=== PATIENT | female | born 1955 | race African-American/Black ===

== ENCOUNTER 2017-11-08 11:02 | Emergency (ER) | payer OTHER ==
[2017-11-08 11:17] VITALS: BMI 28.0
[2017-11-08] MEDS ORDERED: SODIUM CHLORIDE 500 ML IV ONE (12:07)
--- NOTE | 2017-11-08 12:08 | PDOC ---
History of Present Illness - General History Source: Patient Exam Limitations: No Limitations - History of Present Illness Initial Comments: 11/08/17 13:06 The patient is a 61 year old female, with a significant past medical history of HTN, DM, CAD (on daily 81 mg Aspirin), Fibromyalgia, Glaucoma, GERD who presents to the emergency department with dark stools and abdominal pain for the past month. Patient reports intermittent constipation for the past month that eventually resolves on its own. Once resolved, patient has 4-5 bowel movements per day which are black in color. Patient reports associated nausea, fatigue and lower abdominal cramping. Patient occasionally takes Motrin for the pain however denies any relief. Patients pain and stool color have not resolved and presents to the ED for further evaluation. Patient denies chest pain, headache or dizziness. Patient denies fever, chills, vomit, diarrhea or constipation. Patient denies dysuria, frequency, urgency or hematuria. Patient denies sick contacts or recent travel. Allergies: NKA Past surgical history:biopsy of a nodule in her left upper lobe (03/2016) s/p wedge resection (06/2016) Social history: Former smoker (35 years ago) PCP: Dr. Abraham <Ne Riggs - Last Filed: 11/08/17 14:21> <August Rivera - Last Filed: 11/08/17 14:44> - General Chief Complaint: Rectal Bleed Stated Complaint: Black stools, back pain Time Seen by Provider: 11/08/17 12:06 Past History <Ne Riggs - Last Filed: 11/08/17 14:21> - Past Medical History Anemia: Yes Cancer: Yes (Lung 2016) Cardiac Disorders: Yes (CAD/Atypical chest pain) COPD: No (bronchitis) Diabetes: Yes HTN: Yes Hypercholesterolemia: Yes - Surgical History Lung Surgery: Yes (LUNG BIOPSY 03/2016) - Suicide/Smoking/Psychosocial Hx Smoking Status: Yes Smoking History: Never smoked Have you smoked in the past 12 months: Yes Number of Cigarettes Smoked Daily: 3 If you are a former smoker, when did you quit?: 2016 Information on smoking cessation initiated: No 'Breaking Loose' booklet given: 07/06/15 Hx Alcohol Use: No Drug/Substance Use Hx: No Substance Use Type: None Hx Substance Use Treatment: No <August Rivera - Last Filed: 11/08/17 14:44> - Past Medical History Allergies/Adverse Reactions: Allergies Allergy/AdvReac Type Severity Reaction Status Date / Time oyster extract Allergy Verified 11/08/17 11:17 OYSTER BASE Allergy Severe Hives Uncoded 11/08/17 11:17 Home Medications: Ambulatory Orders Ezetimibe [Zetia] 10 mg PO DAILY 10/22/16 Ramipril 2.5 mg PO BID 10/22/16 Aspirin [ASA -] 81 mg PO DAILY 11/08/17 Canagliflozin [Invokana] 300 mg PO DAILY 11/08/17 Lubiprostone [Amitiza] 8 mcg PO DAILY 11/08/17 Ranitidine HCl [Zantac] 150 mg PO DAILY 11/08/17 Rosuvastatin Calcium [Crestor] 30 mg PO HS 11/08/17 Review of Systems - Review of Systems Constitutional: Yes: Weakness. No: Chills, Fever Respiratory: No: Shortness of Breath Cardiac (ROS): Yes: Lightheadedness. No: Chest Pain ABD/GI: Yes: See HPI, Blood Streaked Bowels. No: Nausea, Vomiting : No: Dysuria Neurological: No: Headache All Other Systems: Reviewed and Negative <August Rivera - Last Filed: 11/08/17 14:44> *Physical Exam - Vital Signs Last Vital Signs Temp Pulse Resp BP Pulse Ox 98.2 F 66 18 153/78 99 11/08/17 11:14 11/08/17 11:14 11/08/17 11:14 11/08/17 11:14 11/08/17 11:14 - Physical Exam Comments: 11/08/17 13:06 GENERAL: The patient is awake, alert, and fully oriented, in no acute distress. HEAD: Normal with no signs of trauma. EYES: Pupils equal, round and reactive to light, extraocular movements intact, sclera anicteric, conjunctiva clear with no pallor. ENT: Ears normal, nares patent, oropharynx clear without exudates. Moist mucous membranes. NECK: Normal range of motion, supple without lymphadenopathy, JVD, or masses. LUNGS: Breath sounds equal, clear to auscultation bilaterally. No wheeze/ crackles. HEART: Regular rate and rhythm, normal S1 and S2 without murmur or rub. ABDOMEN: + Mid RLQ discomfort to tenderness. Soft//nondistended. BS wnl. No guarding or rebound. No palpable masses. No hepatosplenomegaly. EXTREMITIES: Normal range of motion, no edema. No clubbing or cyanosis. No cords, erythema, or tenderness. NEUROLOGICAL: Cranial nerves II through XII grossly intact. Normal speech, normal gait. PSYCH: Normal mood, normal affect. SKIN: Warm, Dry, normal turgor, no rashes or lesions noted. RECTAL: No stool in the vault. <Ne Riggs - Last Filed: 11/08/17 14:21> - Vital Signs Last Vital Signs Temp Pulse Resp BP Pulse Ox 98.2 F 66 18 153/78 99 11/08/17 11:14 11/08/17 11:14 11/08/17 11:14 11/08/17 11:14 11/08/17 11:14 <August Rivera - Last Filed: 11/08/17 14:44> Heart Score/ECG Review #1 ECG reviewed & interpreted by me at: 13:01 General ECG Interpretation: Sinus Rhythm, Normal Rate (54), Normal Intervals ( qtc 403), No acute ischemic changes <August Rivera - Last Filed: 11/08/17 14:44> ED Treatment Course - LABORATORY CBC & Chemistry Diagram: 11/08/17 12:10 11/08/17 12:10 - ADDITIONAL ORDERS Additional order review: Laboratory Results 11/08/17 11/08/17 11/08/17 12:41 12:10 12:10 PT with INR 10.70 INR 0.95 PTT (Actin FS) 30.9 Sodium 134 L Potassium 4.2 Chloride 99 Carbon Dioxide 30 Anion Gap 5 L BUN 13 Creatinine 0.7 Creat Clearance w eGFR > 60 Random Glucose 284 H Calcium 9.8 Total Bilirubin 0.6 D AST 4 L D ALT 21 Alkaline Phosphatase 96 D Total Protein 7.3 Albumin 4.0 Lipase 140 Urine Color Urine Appearance Urine pH Ur Specific [place] Urine Protein Urine Glucose (UA) Urine Ketones Urine Blood Urine Nitrite Urine Bilirubin Urine Urobilinogen Stool Occult Blood Negative 11/08/17 12:10 PT with INR INR PTT (Actin FS) Sodium Potassium Chloride Carbon Dioxide Anion Gap BUN Creatinine Creat Clearance w eGFR Random Glucose Calcium Total Bilirubin AST ALT Alkaline Phosphatase Total Protein Albumin Lipase Urine Color Ltyellow Urine Appearance Clear Urine pH 5.0 Ur Specific [place] 1.032 Urine Protein Negative Urine Glucose (UA) 3+ H Urine Ketones 1+ H Urine Blood Negative Urine Nitrite Negative Urine Bilirubin Negative Urine Urobilinogen Negative Stool Occult Blood 11/08/17 12:10 RBC 5.51 H MCV 85.3 MCHC 32.8 RDW 13.7 MPV 8.1 Neutrophils % 56.1 Lymphocytes % 36.5 Monocytes % 5.4 Eosinophils % 1.1 Basophils % 0.9 - Medications Given in the ED: ED Medications Discontinued Medications Generic Name Dose Route Start Last Admin Trade Name Freq PRN Reason Stop Dose Admin Sodium Chloride 500 mls @ 500 mls/hr 11/08/17 12:07 11/08/17 12:55 Normal Saline - IV 11/08/17 13:06 500 mls/hr ONCE ONE Administration <Ne Riggs - Last Filed: 11/08/17 14:21> - LABORATORY CBC & Chemistry Diagram: 11/08/17 12:10 11/08/17 12:10 <August Rivera - Last Filed: 11/08/17 14:44> Medical Decision Making - Medical Decision Making 11/08/17 14:[address] Lyon via office phone Discussed patient's case. <Ne Riggs - Last Filed: 11/08/17 14:21> - Medical Decision Making 11/08/17 12:48 A portion of this note was documented by scribe services under my direction. I have reviewed the details of the note, within reason, and agree with the documentation with the following case summary and management plan written by me. 61-year-old female with history of hypertension, diabetes, fibromyalgia, PUD presents with 2 months of daily dark stool with abdominal cramping. No nausea or vomiting, has had increased appetite and tolerating normal by mouth since quitting smoking one year ago. No fevers or chills, complaining of increasing malaise and fatigue over the last 2 weeks to 1 month. Last endoscopy/colonoscopy was 5 years ago and reportedly within normal limits, question whether she has diverticulosis. Has been on PPI in the past but has been noncompliant for several years. Vital signs stable Ambulate comfortably No conjunctival pallor Abdomen is benign, soft/nondistended/nontender with only mild discomfort in the right lower quadrant. No stool in vault, guaiac sent. 61-year-old female with history of PUD presents with 1 month of persistent dark stool and intermittent abdominal cramping. Worsening lightheadedness could be suggestive of anemia, rule out other infectious or metabolic process. Labs, urinalysis EKG, chest x-ray IV fluids Reassess 11/08/17 13:41 labs wnl, Hgb 15.4, very reassuring in setting of 1 month of sxs. BUN also normal. stool guaiac negative. EKG normal, CT chest from earlier today without acute pathology. 11/08/17 14:[address] Loyn, the patient's GI specialist. Agrees with d/c plan, can see pt in his office tomorrow morning. Pt ambulating freely in ED, conversing with staff. Agrees with d/c plan, will f/ u with Dr. Lyon tomorrow, understands return criteria. <August Rivera - Last Filed: 11/08/17 14:44> *DC/Admit/Observation/Transfer - Attestations Scribe Attestion: 11/08/17 13:07 Documentation prepared by Ne Riggs, acting as medical equipment repairer for August Rivera MD <Ne Riggs - Last Filed: 11/08/17 14:21> <August Rivera - Last Filed: 11/08/17 14:44> Diagnosis at time of Disposition: Dark stools - Discharge Dispostion Disposition: HOME Condition at time of disposition: Stable - Referrals Referrals: Shahida Abraham MD [Primary Care Provider] - Checo Lyon MD [Staff Physician] - - Patient Instructions Printed Discharge Instructions: DI for Fatigue Additional Instructions: Activity as tolerated. Stay hydrated. Blood tests today showed no evidence of anemia or blood in your stool. A urine test showed no evidence of infection. Stay well hydrated, continue normal diet. Continue your medications as previously prescribed by your physician. Restart your Nexium as previously prescribed. You should follow up with Dr. Abraham and Dr. Lyon as soon as possible regarding today's emergency department visit. Dr. LYON IS EXPECTING TO SEE YOU IN HIS OFFICE TOMORROW. Return to the emergency department for any new or concerning symptoms, particularly persistent or worsening abdominal pain, grossly bloody stool, bloody vomit, severe weakness or fevers. - Post Discharge Activity
[2017-11-08 12:17] LABS: BASO % 0.9 % (0-2.0); EOS % 1.1 % (0-4.5); MCHC 32.8 g/dl (32.0-36.0); MEAN CELL VOLUME 85.3 fl (80-96); MEAN PLT VOLUME 8.1 fl (7.5-11.1); NEUT % 56.1 % (42.8-82.8); PLATELET COUNT 203 K/MM3 (134-434); RDW 13.7 % (11.6-15.6); WHITE BLOOD COUNT 7.7 K/mm3 (4.0-10.0)
[2017-11-08 12:27] LABS: URINE APPEARANCE CLEAR; URINE BILIRUBIN NEGATIVE (NEGATIVE); URINE BLOOD NEGATIVE (NEGATIVE); URINE COLOR LTYELLOW; URINE GLUCOSE (UA) 3+ (NEGATIVE); URINE KETONE 1+ (NEGATIVE); URINE LEUK ESTERASE NEGATIVE (NEGATIVE); URINE NITRITE NEGATIVE (NEGATIVE); URINE PROTEIN NEGATIVE (NEGATIVE); URINE UROBILINOGEN NEGATIVE mg/dL (0.2-1.0)
[2017-11-08 12:43] LABS: ANION GAP 5 (8-16); CALCIUM 9.8 mg/dL (8.5-10.1); CO2 30 mmol/L (21-32); CREATININE 0.7 mg/dL (0.55-1.02); GLUCOSE,RANDOM 284 mg/dL (74-106); SGPT/ALT 21 U/L (12-78); TOT PROT 7.3 g/dl (6.4-8.2)
[2017-11-08 12:44] LABS: INR 0.95 (0.82-1.09); PROTHROMBIN TIME (PATIENT) 10.7 SEC (9.98-11.88); SGOT/AST 4 U/L (15-37)
[2017-11-08 12:46] LABS: ACTIVATED PTT 30.9 SECONDS (26.9-34.4)
[2017-11-08 12:48] LABS: ALK PHOS 96 U/L (45-117); BILIRUBIN,TOTAL 0.6 mg/dL (0.2-1.0)
[2017-11-08 14:35] VITALS: BP 142/76; PULSE 68; TEMP 98
[2017-11-08 16:01] LABS: URINE LEUK ESTERASE Negative (NEGATIVE)
--- NOTE | 2017-11-09 01:19 | EKG ---
Test Reason : Blood Pressure : / mmHG Vent. Rate : 054 BPM Atrial Rate : 054 BPM P-R Int : 152 ms QRS Dur : 090 ms QT Int : 426 ms P-R-T Axes : 068 013 035 degrees QTc Int : 403 ms SINUS BRADYCARDIA OTHERWISE NORMAL ECG WHEN COMPARED WITH ECG OF 14-MAY-2016 10:50, NO SIGNIFICANT CHANGE WAS FOUND Confirmed by CLAU LEMUS MD ([id number]) on 11/09/2017 1:19:13 AM Referred By: Confirmed By:CLAU LEMUS MD
== END 2017-11-08 15:01 | disposition home or self-care (01) ==
LOC: JER 11:02
PROC: 3E0337Z Introduction of Electrolytic and Water Balance Substance into Peripheral Vein, Percutaneous Approach (ICD-10-PCS; principal; 2017-11-08)
DX: R19.5 Other fecal abnormalities (principal); I11.0 Hypertensive heart disease with heart failure; E11.9 Type 2 diabetes mellitus without complications; M79.7 Fibromyalgia; H40.89 Other specified glaucoma; K21.9 Gastro-esophageal reflux disease without esophagitis
CPT/HCPCS: 36415; 71020-TC; 71250-TC; 80053; 81003; 82272; 83690; 85025; 85610; 85730; 86850; 86900; 86901; 93005; 93010; 96360; 99283-25

== ENCOUNTER 2018-05-09 14:10 | Inpatient (IN) | payer OTHER ==
[2018-05-20 15:48] VITALS: BMI 26.1
[2018-05-23] MEDS ORDERED: MIDAZOLAM HCL 2 MG/2 ML SINGLE DOSE VIAL ONE (11:33)
[2018-05-23] MEDS ORDERED: ROCURONIUM BROMIDE 50 MG/5 ML VIAL ONE (11:33)
[2018-05-23] MEDS ORDERED: PROPOFOL 20 ML ONE (11:33)
[2018-05-23] MEDS ORDERED: fentaNYL CITRATE 250 MCG/5 ML VIAL ONE (11:33)
[2018-05-23] MEDS ORDERED: BUPIVACAINE HCL/PF 0.25% (2.5MG/ML) 10 ML VIAL ONE (12:57)
[2018-05-23] MEDS ORDERED: LIDOCAINE 1%/EPI 1:100000 (20 ML MULTI DOSE VIAL) ONE (12:57)
[2018-05-23] MEDS ORDERED: HEPARIN NA (PORCINE) 5,000 UNITS/ML 1ML VIAL ONE (13:36)
[2018-05-23] MEDS ORDERED: ceFAZolin SODIUM 1 GM VIAL IVPB ONE (13:36)
[2018-05-23] MEDS ORDERED: HEPARIN NA (PORCINE) 5,000 UNITS/ML 1ML VIAL SQ ONE (13:38)
[2018-05-23] MEDS ORDERED: BUPIVACAINE HCL/PF 0.25% (2.5MG/ML) 10 ML VIAL IJ ONE (13:49)
[2018-05-23] MEDS ORDERED: LIDOCAINE 1%/EPI 1:100000 (50 ML MULTI DOSE VIAL) INF ONE (13:49)
[2018-05-23] MEDS ORDERED: NEOSTIGMINE METHYLSULFATE 0.5 MG/ML - 10 ML MDV ONE (14:50)
[2018-05-23] MEDS ORDERED: ONDANSETRON 4 MG/2 ML VIAL IVPUSH PRN (16:00)
[2018-05-23] MEDS ORDERED: ACETAMINOPHEN INJECTION 100 ML IVPB ONE (16:10)
[2018-05-23] MEDS ORDERED: HYDROmorphone *PCA* 10MG/50ML DISP.SYRIN PCA ONE (16:10)
--- NOTE | 2018-05-23 16:11 | OP ---
Operative Note - Note: Operative Date: 05/23/18 Pre-Operative Diagnosis: Lung cancer Operation: Bronchoscopy, right VATS wedge, lymph node sampling, intercostal nerve block. Findings: Normal bronchoscopy, level 9 lymph node normal appearing, nodule palpable and gross margin negative. Post-Operative Diagnosis: Same as Pre-op Surgeon: Oneil Pyle Anesthesia: General Specimens Removed: right lower lobe wedge, level 9 node. Estimated Blood Loss (mls): 30 Drains & Tubes with Location: right chest tube. Operative Report Dictated: Yes
[2018-05-23] MEDS: ACETAMINOPHEN 1000 MG/100 ML VIAL (NON FORMULARY) IVPB ONE (16:12)
[2018-05-23] MEDS ORDERED: HYDROmorphone *PCA* 10MG/50ML DISP.SYRIN PCA SCH (16:15)
[2018-05-23] MEDS: LACTATED RINGERS SOLUTION 1,000 ML IV SCH ×2 (19:40→22:21)
[2018-05-23] MEDS ORDERED: IPRATROPIUM BR 0.02% 0.5 MG/2.5 ML VIAL.NEB. NEB SCH (20:00)
[2018-05-23] MEDS ORDERED: ALBUTEROL SO4 2.5/IPRATROPIUM 0.5 INH SOL 3 ML VIAL.NEB. NEB PRN (21:50)
--- NOTE | 2018-05-23 21:50 | CONSULT ---
Consultation: REQUESTING PROVIDER: CONSULT REQUEST: We have been asked to medically evaluate this patient for ( intensive care ). 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 Patient reports that she was diagnosed with Right lung nodule about a year ago and was monitored with repeated scans but now it has some changes and fnac was done which as per patient is malignent and was planned for vats. Patient denies sob, cough, loss of weight, apatite, hemoptysis. Denies weakness in ay part of body. Vats done on with wedge resection and lymphnode biopsy of level 9. Patient has chest tube on right side, draining hemorrhagic fluid. Denies chest poain, sob, cough, haemoptysis. Also reports that PET scan was done which showed 2mm nodule in left breast and her primary is aware about it and they are monitoring it. Patient was a smoker smoked one pack a year for 35 years stopped 2 years ago. PMH: cad, htn, hld, dm, peripharal neuropathay. REVIEW OF SYSTEMS: CONSTITUTIONAL: Absent: fever, chills, diaphoresis, generalized weakness CARDIOVASCULAR: Absent: chest pain, syncope, palpitations, irregular heart rate, lightheadedness , peripheral edema RESPIRATORY: Absent: cough, shortness of breath, dyspnea with exertion, GASTROINTESTINAL: Absent: abdominal pain, abdominal distension, nausea, vomiting, diarrhea GENITOURINARY: Absent: dysuria, frequency, urgency, hesitancy, NEUROLOGIC: Absent: headache, focal weakness or paresthesias, dizziness, PHYSICAL EXAMINATION Vital Signs - 24 hr 05/23/18 05/23/18 05/23/18 09:53 09:54 15:58 Temperature 98.7 F 97.8 F Pulse Rate 76 76 Respiratory 16 16 Rate Blood Pressure 112/67 119/62 O2 Sat by Pulse 96 97 Oximetry (%) 05/23/18 05/23/18 05/23/18 16:00 16:15 16:26 Temperature Pulse Rate 80 70 87 Respiratory 15 13 20 Rate Blood Pressure 136/64 114/58 139/61 O2 Sat by Pulse 99 98 Oximetry (%) 05/23/18 05/23/18 05/23/18 16:30 16:45 17:00 Temperature Pulse Rate 87 70 87 Respiratory 20 15 18 Rate Blood Pressure 139/61 115/57 110/51 O2 Sat by Pulse 100 98 100 Oximetry (%) 05/23/18 05/23/18 05/23/18 17:15 17:30 17:45 Temperature Pulse Rate 75 74 77 Respiratory 14 11 L 13 Rate Blood Pressure 108/48 101/51 107/56 O2 Sat by Pulse 99 98 98 Oximetry (%) 05/23/18 05/23/18 05/23/18 18:00 18:15 18:30 Temperature Pulse Rate 90 78 75 Respiratory 20 10 L 12 Rate Blood Pressure 124/62 116/55 110/54 O2 Sat by Pulse 99 98 96 Oximetry (%) 05/23/18 20:09 Temperature 98.5 F Pulse Rate 97 H Respiratory 18 Rate Blood Pressure 126/68 O2 Sat by Pulse Oximetry (%) GENERAL: Awake, alert, and fully oriented, in no acute distress. EARS, NOSE, THROAT: Moist mucous membranes. LUNGS: decrease air entry at bases, wheezing present on right side, no rales. HEART: s1s2 normal, regular ABDOMEN: Soft, nontender, not distended, normoactive bowel sounds, no guarding, no rebound, no masses. MUSCULOSKELETAL: Normal range of motion at all joints. No bony deformities or tenderness. No CVA tenderness. UPPER EXTREMITIES: 2+ pulses, warm, well-perfused. No peripheral edema. LOWER EXTREMITIES: warm, No calf tenderness. No peripheral edema. PSYCHIATRIC: Cooperative. Good eye contact. SKIN: Warm, dry, Laboratory Results - last 24 hr 05/23/18 05/23/18 09:38 10:40 POC Glucometer 140 Blood Type A POSITIVE Antibody Screen Negative Active Medications Generic Name Dose Route Start Last Admin Trade Name Freq PRN Reason Stop Dose Admin Acetaminophen 650 mg 05/23/18 22:00 Tylenol - PO 05/26/18 21:59 Q6H [facility] Chlorhexidine Gluconate 1 applic 05/23/18 22:00 Hibiclens For Decolonization - TP HS [facility] Heparin Sodium (Porcine) 5,000 unit 05/23/18 22:00 Heparin - SQ BID JASON Hydromorphone HCl 10 mg 05/23/18 16:15 05/23/18 16:26 Dilaudid Poultry Hatchery Laborer - PATIENT OBSERVER 05/30/18 16:14 10 mg PATIENT OBSERVER JASON Administration Protocol Lactated Ringer's 1,000 mls @ 75 mls/hr 05/23/18 16:15 Lactated Ringers Solution IV ASDIR JASON Ipratropium [place] 1 amp 05/23/18 20:00 05/23/18 21:10 Atrovent 0.02% Nebulizer - NEB 1 amp RQID JASON Administration Lidocaine 1 patch 05/24/18 10:00 Lidoderm Patch - TP DAILY JASON Miscellaneous 1 each 05/24/18 22:00 Lidoderm Patch Removal MC DAILY@2200 JASON Mupirocin 1 applic 05/23/18 22:00 Bactroban Ointment (For Decolonization) - NS 05/28/18 21:59 BID JASON Ondansetron HCl 4 mg 05/23/18 21:34 Zofran Injection IVPB Q6H PRN NAUSEA ASSESSMENT/PLAN: 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 malignent nodule R lung s/p wedge resection 05/23/18 HTN HLD DM CAD Peripharal neuropathy. Plan chest tube with suction on right side, Monitor tube output, regular milking of tube to prevent clogging to tube. spirometry. duoneb nebulizer q6h. Pain control. on dilaudid and lidocain patch. zofran for nausea. regular diet once nausea gets better. start home meds for BP. Blood glucose monitoring. novolog sliding scale. on IV fluid LR 125ml/hr dvt prophylaxis on heparin bid repeat cbc and cmp in morning. start aspirin after clearance from thorasic surgeon. Dispo: We will continue to follow the patient. Thank you for this consultative opportunity. Visit type - Emergency Visit Emergency Visit: Yes ED Registration Date: 05/23/18 Care time: The patient presented to the Emergency Department on the above date and was hospitalized for further evaluation of their emergent condition. - New Patient This patient is new to me today: Yes Date on this admission: 05/23/18 - Critical Care Critical Care patient: Yes Total Critical Care Time (in minutes): 45 Critical Care Statement: The care of this patient involved high complexity decision making to prevent further life threatening deterioration of the patient 's condition and/or to evaluate & treat vital organ system(s) failure or risk of failure.
[2018-05-23] MEDS: MUPIROCIN 2% TOPICAL OINTMENT FOR DECOLONIZATION NS SCH (22:24)
[2018-05-23] MEDS: ALBUTEROL SO4 2.5/IPRATROPIUM 0.5 INH SOL 3 ML VIAL.NEB. NEB SCH (22:24)
[2018-05-23] MEDS: CHLORHEXIDINE GLUCONATE 4% CLEANSER FOR DECOLONIZATION TP SCH (22:25)
[2018-05-23] MEDS: ACETAMINOPHEN 325 MG TABLET (FP) PO SCH ×3 (22:33→23:52)
[2018-05-23] MEDS: HEPARIN NA (PORCINE) 5,000 UNITS/ML 1ML VIAL SQ SCH (22:34)
[2018-05-23] MEDS: ONDANSETRON 4 MG/2 ML VIAL IVPB PRN (22:35)
[2018-05-23] MEDS: INSULIN SLIDING SCALE (NOVOLOG) 1 VIAL SQ SCH ×2 (22:54→23:51)
[2018-05-23] MEDS ORDERED: SIMETHICONE 80 MG TAB.CHEW (FP) PO ONE (23:57)
[2018-05-24] MEDS: ACETAMINOPHEN 325 MG TABLET (FP) PO SCH ×4 (06:16→21:58)
[2018-05-24 06:23] LABS: BASO % 0.2 % (0-2.0); HEMATOCRIT 43.5 % (32.4-45.2); HEMOGLOBIN 14.3 GM/dL (10.7-15.3); LYMPH % 16.1 % (8-40); MCH 28.3 pg (25.7-33.7); MCHC 32.9 g/dl (32.0-36.0); MEAN PLT VOLUME 8.4 fl (7.5-11.1); MONO % 8.5 % (3.8-10.2); NEUT % 75.2 % (42.8-82.8); PLATELET COUNT 211 K/MM3 (134-434); RBC 5.06 M/mm3 (3.60-5.2); WHITE BLOOD COUNT 11.2 K/mm3 (4.0-10.0)
[2018-05-24] MEDS: ONDANSETRON 4 MG/2 ML VIAL IVPB PRN ×2 (06:42→12:18)
--- NOTE | 2018-05-24 07:17 | PN ---
Progress Note, Physician - Current Medication List Current Medications: Active Medications Acetaminophen (Tylenol -) 650 mg PO Q6H [facility] Stop: 05/26/18 21:59 Last Admin: 05/24/18 06:16 Dose: 650 mg Albuterol/Ipratropium (Duoneb -) 1 amp NEB RQID [facility] Last Admin: 05/23/18 22:24 Dose: 1 amp Chlorhexidine Gluconate (Hibiclens For Decolonization -) 1 applic TP HS [facility] Last Admin: 05/23/18 22:25 Dose: 1 applic Ezetimibe (Zetia -) 10 mg PO DAILY [facility] Heparin Sodium (Porcine) (Heparin -) 5,000 unit SQ BID [facility] Last Admin: 05/23/18 22:34 Dose: 5,000 unit Hydromorphone HCl (Dilaudid Plastics Fitter -) 10 mg PRINCIPAL CYBER ENGINEER PRINCIPAL CYBER ENGINEER [facility]; Protocol Stop: 05/30/18 16:14 Last Admin: 05/23/18 16:26 Dose: 10 mg Lactated Ringer's (Lactated Ringers Solution) 1,000 mls @ 75 mls/hr IV ASDIR [facility] Last Admin: 05/23/18 22:21 Dose: 75 mls/hr Insulin Aspart (Novolog Vial Sliding Scale -) 1 vial SQ ACHS [facility]; Protocol Last Admin: 05/23/18 23:51 Dose: 4 units Lidocaine (Lidoderm Patch -) 1 patch TP DAILY [facility] Miscellaneous (Lidoderm Patch Removal) 1 each MC DAILY@2200 [facility] Mupirocin (Bactroban Ointment (For Decolonization) -) 1 applic NS BID [facility] Stop: 05/28/18 21:59 Last Admin: 05/23/18 22:24 Dose: 1 applic Ondansetron HCl (Zofran Injection) 4 mg IVPB Q6H PRN PRN Reason: NAUSEA Last Admin: 05/24/18 06:42 Dose: 4 mg Ramipril (Altace -) 2.5 mg PO BID [facility] Ranitidine HCl (Zantac -) 150 mg PO HS [facility] Rosuvastatin Calcium (Crestor -) 30 mg PO HS [facility] - Objective Vital Signs: Vital Signs Temperature 99.1 F 05/24/18 02:00 Pulse Rate 69 05/24/18 06:00 Respiratory Rate 22 05/24/18 06:00 Blood Pressure 135/64 05/24/18 06:00 O2 Sat by Pulse Oximetry (%) 96 05/23/18 21:00 Cardiovascular: Yes: S1, S2 Respiratory: Yes: On Nasal O2, Rales Gastrointestinal: Yes: Normal Bowel Sounds, Soft Edema: No Labs: CBC, BMP 05/24/18 05:30 Problem List - Problems (1) Lung cancer Assessment/Plan: Operative Date: 05/23/18 Pre-Operative Diagnosis: Lung cancer Operation: Bronchoscopy, right VATS wedge, lymph node sampling, intercostal nerve block. Findings: Normal bronchoscopy, level 9 lymph node normal appearing, nodule palpable and gross margin negative. Post-Operative Diagnosis: Same as Pre-op Surgeon: Oneil Pyle Chest Tube in place further plan per surgery Code(s): C34.90 - MALIGNANT NEOPLASM OF UNSP PART OF UNSP BRONCHUS OR LUNG (2) Non-occlusive coronary artery disease Assessment/Plan: -no cp -same meds -ekg Code(s): I25.10 - ATHSCL HEART DISEASE OF [place] CORONARY ARTERY W/O ANG PCTRS (3) Type 2 diabetes mellitus Assessment/Plan: -bgm and ss Code(s): E11.9 - TYPE 2 DIABETES MELLITUS WITHOUT COMPLICATIONS
[2018-05-24] MEDS: ALBUTEROL SO4 2.5/IPRATROPIUM 0.5 INH SOL 3 ML VIAL.NEB. NEB SCH ×4 (07:45→20:31)
--- NOTE | 2018-05-24 07:49 | PN ---
Progress Note (short form) - Note Progress Note: POD #1 No acute events since surgery per RN notes. Alert. Sitting in bed at 30 degrees. Using her incentive spirometer as directed. Adequate pain management via prn medication. Denies n/v/f/c, CP or SOB. Last Vital Signs Temp Pulse Resp BP Pulse Ox 99.1 F 69 22 135/64 96 18 02:00 05/24/18 06:00 05/24/18 06:00 05/24/18 06:00 05/23/18 21:00 CBC 05/24/18 05:30 GEN:nad CHEST: Right chest tube pleurovac (120 mL/serosag) on suction. No tidaling or air leak noted. Incision c/d/i : richard LE: SCDs bilat. Soft. NT. Problem List - Problems (1) Lung cancer Assessment/Plan: POD #1 s/p Bronchoscopy, right VATS wedge, lymph node sampling, intercostal nerve block. dc ramos and begin trial of void oob to chair Ambulate as tolerated Advance diet dc IVF f/u CXR Pleurovac off suction --> to waterseal dc STOVE MECHANIC Tramadol 50 mg Q6H RTC downgrade to floor CxT for possible removal 05/26/[address] Pyle and agrees Code(s): C34.90 - MALIGNANT NEOPLASM OF UNSP PART OF UNSP BRONCHUS OR LUNG
[2018-05-24] MEDS: HEPARIN NA (PORCINE) 5,000 UNITS/ML 1ML VIAL SQ SCH ×2 (09:12→22:00)
[2018-05-24] MEDS: ASPIRIN 81 MG CHEWABLE TABLETS PO SCH (09:13)
[2018-05-24] MEDS: LIDOCAINE 5% TOPICAL PATCH TP SCH (09:13)
[2018-05-24] MEDS: RAMIPRIL 2.5 MG CAPSULE (FP) PO SCH ×2 (09:14→22:00)
[2018-05-24] MEDS: traMADol HCL 50 MG TABLET PO SCH ×3 (09:14→17:38)
--- NOTE | 2018-05-24 09:21 | OPR ---
Patient Name: Ronna Arcos MR#: [id number] Procedure Date: 05/23/2018 Date of Admission: 05/23/2018 INPATIENT PROCEDURE Preoperative Diagnosis: 1. Lung cancer; 2. COPD; 3. Smoking history; 4. CHF; 5. CAD; 6. DM; 7. Fibromyalgia. Postoperative Diagnosis: Same Procedure: 1. Bronchoscopy; 2. Right VATS; 3. Right lower lobe wedge resection; 4. Mediastinal lymph node sampling; 5. Intercostal nerve block. Indication: Lung nodule. Surgeon(s): Oneil Pyle MD Cosurgeon: Odessa Mendez MD Linseed Oil Press Tender Surgeon: honey Anesthesia: General endotracheal with double-lumen tube Findings: Normal bronchoscopy; nodule palpable, frozen c/w cancer and negative margin, lymph nodes normal; Specimens Sent: 1. Right upper lobe wedge; 2. Right level 9 lymph node. Complications: none Drains / Tubes / Catheters: Chest tube Hardware / Implants: na Blood / Fluid Losses: 50cc. Post-Operative Condition: Hemodynamically stable in transfer to PACU. Indications: This patient is a 62 year-old female former smoker with a history of lung cancer s/p left lung resection referred from Dr. Colon, Dr. Otto, and Dr. Abraham for resection of a nodule in the right lower lobe. She was explained the risks, benefits, and alternatives and understood. Dr. Mendez was present as a cosurgeon as there are no available surgical residents and this was a complex deep wedge and a difficult part-solid lesion to locate. Details of Procedure: The patient was brought into the OR, given intravenous sedation and intubated. Monitoring included pulse oximetry, and blood pressure monitoring. A bronchoscopy was done and the airway was isolated. We prepared and draped her. We made a port and inserted the camera. We then placed two other ports. We divided the inferior pulmonary ligament and found a small normal appearing lymph node which was passed off for pathology. At this point, we were able to palpate the deep nodule. Next, we resected the lesion with an ~ 8mm to 1cm margin. The resection involved basically a basilar segmentectomy. We then obtained hemostasis. We then closed the ports with vicryl and monocryl sutures after placing a chest tube and expanding the lung. Dressings were placed on the wounds. She was awakened and extubated. She was transferred to the PACU in stable condition.
--- NOTE | 2018-05-24 09:22 | PN ---
Progress Note (short form) - Note Progress Note: POD#1 s/p vats Plan: Optimize pain control, please convert to po, would defer toradol CXR today on water seal. Leave on water seal Transfer to floor or step down OOB ambulate today Pulmonary toilet
[2018-05-24 09:29] LABS: ALBUMIN 3.7 g/dl (3.4-5.0); ALK PHOS 74 U/L (45-117); ANION GAP 13 (8-16); BILIRUBIN,TOTAL 0.5 mg/dL (0.2-1.0); BLOOD UREA NITROGEN 10 mg/dL (7-18); CALCIUM 9.2 mg/dL (8.5-10.1); CHLORIDE 103 mmol/L (98-107); CO2 24 mmol/L (21-32); CREATININE 0.6 mg/dL (0.55-1.02); GLUCOSE,RANDOM 175 mg/dL (74-106); PHOSPHOROUS 3.7 mg/dL (2.5-4.9); POTASSIUM 4.4 mmol/L (3.5-5.1); SGOT/AST 24 U/L (15-37); SGPT/ALT 32 U/L (12-78); SODIUM 140 mmol/L (136-145); TOT PROT 6.9 g/dl (6.4-8.2)
[2018-05-24] MEDS: INSULIN SLIDING SCALE (NOVOLOG) 1 VIAL SQ SCH ×4 (10:48→23:31)
[2018-05-24] MEDS: MUPIROCIN 2% TOPICAL OINTMENT FOR DECOLONIZATION NS SCH ×2 (10:49→22:00)
[2018-05-24] MEDS ORDERED: PT OWN MED DRAWER 7, Y5N ONE ×4 (10:51→21:33)
[2018-05-24] MEDS: EZETIMIBE 10 MG TABLET (FP) PO SCH (10:52)
[2018-05-24] MEDS ORDERED: PROCHLORPERAZINE INJECTION 10 MG/2 ML VIAL IVPB PRN (12:16)
[2018-05-24] MEDS ORDERED: LORazepam 2 MG/ML SDV VIAL ONE (12:42)
--- NOTE | 2018-05-24 12:42 | PN ---
Teaching Attending Note Name of Resident: Mauri Carrero ATTENDING PHYSICIAN STATEMENT I saw and evaluated the patient. I reviewed the resident's note and discussed the case with the resident. I agree with the resident's findings and plan as documented. SUBJECTIVE: Patient seen and examined in the ICU. Awake and alert. Some discomfort at the CT site. No air leak noted on Pleuravac. Intake & Output 05/21/18 05/22/18 05/23/18 05/24/18 23:59 23:59 23:59 23:59 Intake Total 1900 Output Total 1250 930 Balance 650 -930 Weight 152 lb Last Vital Signs Temp Pulse Resp BP Pulse Ox 98.1 F 89 18 149/69 96 05/24/18 08:00 05/24/18 10:00 05/24/18 10:00 05/24/18 10:00 05/24/18 07:45 Active Medications Acetaminophen (Tylenol -) 650 mg PO Q6H [facility] Stop: 05/26/18 21:59 Last Admin: 05/24/18 10:44 Dose: Not Given Albuterol/Ipratropium (Duoneb -) 1 amp NEB RQID [facility] Last Admin: 05/24/18 12:10 Dose: Not Given Aspirin (Asa -) 81 mg PO DAILY [facility] Last Admin: 05/24/18 09:13 Dose: 81 mg Chlorhexidine Gluconate (Hibiclens For Decolonization -) 1 applic TP HS [facility] Last Admin: 05/23/18 22:25 Dose: 1 applic Ezetimibe (Zetia -) 10 mg PO DAILY [facility] Last Admin: 05/24/18 10:52 Dose: 10 mg Heparin Sodium (Porcine) (Heparin -) 5,000 unit SQ BID [facility] Last Admin: 05/24/18 09:12 Dose: 5,000 unit Lactated Ringer's (Lactated Ringers Solution) 1,000 mls @ 75 mls/hr IV ASDIR [facility] Last Admin: 05/23/18 22:21 Dose: 75 mls/hr Insulin Aspart (Novolog Vial Sliding Scale -) 1 vial SQ ACHS [facility]; Protocol Last Admin: 05/24/18 10:48 Dose: 4 units Lidocaine (Lidoderm Patch -) 1 patch TP DAILY [facility] Last Admin: 05/24/18 09:13 Dose: 1 patch Lorazepam (Ativan Injection -) 0.25 mg IVPUSH ONCE ONE Stop: 05/24/18 12:34 Miscellaneous (Lidoderm Patch Removal) 1 each MC DAILY@2200 [facility] Mupirocin (Bactroban Ointment (For Decolonization) -) 1 applic NS BID [facility] Stop: 05/28/18 21:59 Last Admin: 05/24/18 10:49 Dose: Not Given Non-Formulary Medication (Canagliflozin [Invokana]) 300 mg PO DAILY [facility] Non-Formulary Medication (Lubiprostone [Amitiza]) 8 mcg PO DAILY [facility] Ondansetron HCl (Zofran Injection) 4 mg IVPB Q6H PRN PRN Reason: NAUSEA Last Admin: 05/24/18 12:18 Dose: 4 mg Pantoprazole Sodium (Protonix Iv) 40 mg IVPUSH DAILY [facility] Prochlorperazine Edisylate (Compazine Injection -) 10 mg IVPB Q4H PRN PRN Reason: NAUSEA AND/OR VOMITING Ramipril (Altace -) 2.5 mg PO BID [facility] Last Admin: 05/24/18 09:14 Dose: 2.5 mg Ranitidine HCl (Zantac -) 150 mg PO HS [facility] Rosuvastatin Calcium (Crestor -) 30 mg PO HS [facility] Tramadol HCl (Ultram -) 50 mg PO Q6HPO [facility] Last Admin: 05/24/18 09:14 Dose: 50 mg GENERAL: Awake, alert, and fully oriented, NAD EARS, NOSE, THROAT: Moist mucous membranes. LUNGS: decrease air entry at bases, Right CT intact, no air leak HEART: s1s2 normal, regular ABDOMEN: Soft, nontender, not distended, normoactive bowel sounds, no guarding, no rebound, no masses. MUSCULOSKELETAL: Normal range of motion at all joints. No bony deformities or tenderness. No CVA tenderness. UPPER EXTREMITIES: 2+ pulses, warm, well-perfused. No peripheral edema. LOWER EXTREMITIES: warm, No calf tenderness. No peripheral edema. PSYCHIATRIC: Cooperative. Good eye contact. SKIN: Warm, dry, Laboratory Results - last 24 hr 05/23/18 05/24/18 05/24/18 23:40 05:30 05:30 WBC 11.2 H RBC 5.06 Hgb 14.3 Hct 43.5 MCV 86.0 MCH 28.3 MCHC 32.9 RDW 14.0 Plt Count 211 MPV 8.4 Absolute Neuts (auto) 8.4 Neutrophils % 75.2 D Lymphocytes % 16.1 D Monocytes % 8.5 D Eosinophils % 0.0 D Basophils % 0.2 Nucleated RBC % 0 Sodium Cancelled Potassium Cancelled Chloride Cancelled Carbon Dioxide Cancelled Anion Gap Cancelled BUN Cancelled Creatinine Cancelled Creat Clearance w eGFR Cancelled POC Glucometer [phone] Random Glucose Cancelled Calcium Cancelled Phosphorus Cancelled Magnesium Cancelled Total Bilirubin Cancelled AST Cancelled ALT Cancelled Alkaline Phosphatase Cancelled Total Protein Cancelled Albumin Cancelled 05/24/18 08:35 WBC RBC Hgb Hct MCV MCH MCHC RDW Plt Count MPV Absolute Neuts (auto) Neutrophils % Lymphocytes % Monocytes % Eosinophils % Basophils % Nucleated RBC % Sodium 140 Potassium 4.4 Chloride 103 Carbon Dioxide 24 Anion Gap 13 BUN 10 Creatinine 0.6 Creat Clearance w eGFR > 60 POC Glucometer Random Glucose 175 H Calcium 9.2 Phosphorus 3.7 Magnesium 2.0 Total Bilirubin 0.5 AST 24 ALT 32 Alkaline Phosphatase 74 Total Protein 6.9 Albumin 3.7 ASSESSMENT/PLAN: POD #1 Right VATS; RLL wedge resection, mediastinal lymph node sampling, intercostal nerve block 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 HTN HLD DM CAD Peripharal neuropathy. Plan Monitor chest tube output Incentive Spirometry. BD TX Pain control PO as tolerated Blood glucose monitoring. IVF VTE prophylaxis Floor when cleared with surgery Dr Leslie Critical care time spent in reviewing chart, evaluating patient and formulating plan - 36 minutes.
--- NOTE | 2018-05-24 12:56 | EKG ---
Test Reason : Blood Pressure : / mmHG Vent. Rate : 072 BPM Atrial Rate : 072 BPM P-R Int : 158 ms QRS Dur : 094 ms QT Int : 370 ms P-R-T Axes : 021 023 -18 degrees QTc Int : 405 ms NORMAL SINUS RHYTHM NONSPECIFIC T WAVE ABNORMALITY ABNORMAL ECG Confirmed by MD FARHAT, RONNELL ([id number]) on 05/24/2018 12:56:02 PM Referred By: NOEMI CLARKE [facility] Confirmed By:RONNELL DOUGHERTY MD
[2018-05-24] MEDS: PANTOPRAZOLE SODIUM 40 MG VIAL IVPUSH SCH ×2 (13:23→13:34)
--- NOTE | 2018-05-24 13:52 | OP ---
DATE OF OPERATION: 05/23/2018 PREOPERATIVE DIAGNOSES: Lung cancer, chronic obstructive pulmonary disease, smoking history, congestive heart failure, coronary artery disease, diabetes mellitus, fibromyalgia. POSTOPERATIVE DIAGNOSES: Lung cancer, chronic obstructive pulmonary disease, smoking history, congestive heart failure, coronary artery disease, diabetes mellitus, fibromyalgia. PROCEDURE: Bronchoscopy, right video-assisted thoracoscopic surgery, right lower lobe wedge resection, mediastinal lymph node sampling, and intercostal nerve block. INDICATION: Lung cancer. SURGEON: Oneil Pyle MD CO-SURGEON: Odessa Mendez MD ANESTHESIA: General endotracheal. FINDING: Normal bronchoscopy findings. Nodule palpable. Frozen section showed cancer with negative margin. Lymph nodes are sent for permanent pathology. SPECIMENS SENT: Right lower lobe wedge and right level IX lymph node. COMPLICATIONS: None. DRAINS/TUBES/CATHETER: One 28-[place]gu[place] chest tube. HARDWARE/IMPLANTS: Not applicable. BLOOD/FLUID LOSS: 50 mL POSTOPERATIVE CONDITION: Hemodynamically stable, transfer to PACU. INDICATION: A 61-year-old female with past medical history of non-small cell carcinoma, left side, status post wedge resection 2 years ago, found to have a right lower lobe nodule. FNA showed a non-small cell lung cancer. Patient was scheduled for surgery, was concerned for right lower lobe wedge resection, possible lobectomy, possible thoracotomy. Patient was informed about the risks, benefits, and alternatives to the procedure by Dr. Pyle and consented for surgery. PROCEDURE IN DETAIL: Patient was brought into the OR, was placed in a supine position, was intubated. Bronchoscopy was performed. No endobronchial lesions. Single-lung ventilation was performed. Intravenous access was done by anesthesiologist. Hereafter, the patient was placed in left lateral decubitus position, [id number], flexed position, prepped and draped in sterile fashion. Three-hole technique (open VATS technique) was applied to this patient. Camera was inserted. Inferior pulmonary ligament was dissected. The nodule was palpated. A wedge resection containing the nodule was performed of the right lower lobe. Frozen section showed the nodule in the wedge and with free margin. Hemostasis was secured. While transecting the pulmonary ligament, lymph node level IX was excised and sent for pathology. Intercostal nerve block was applied to 8 intercostal levels using lidocaine and Marcaine mixture. After hemostasis was secured, the incisions were closed using 0 Vicryl at the level of fascia, 2-0 Vicryl at the level of the subcutaneous tissue, and 3-0 Monocryl at the level of the skin. Dr. Pyle and I performed the procedure as dictated above and remained available thereafter. I was present as a co-surgeon as there was no available surgical supervisor and this was a complex deep wedge and difficult partial solid lesion to locate. Benja [id number] MTDD
--- NOTE | 2018-05-24 16:01 | PN ---
Physical Exam: SUBJECTIVE: Patient seen and examined in the ICU. Currently complaining of nausea and vomiting. Pain is adequately controlled. OBJECTIVE: Vital Signs Period Temp Pulse Resp BP Sys/Dickson Pulse Ox Last 24 Hr 97.8 F-99.1 F 69-103 10-24 101-151/48-87 96-100 GENERAL: The patient is awake, alert, and fully oriented, in no acute distress. HEAD: Normal with no signs of trauma. ENT: oropharynx clear without exudates, moist mucous membranes. NECK: Trachea midline, full range of motion, supple. LUNGS: Breath sounds decreased, Chest tube in place on the right without air leak HEART: Regular rate and rhythm, S1, S2 without murmur, rub or gallop. ABDOMEN: Soft, nontender, nondistended, normoactive bowel sounds, no guarding, no rebound, no hepatosplenomegaly, no masses. NEUROLOGICAL: Normal speech, normal gait SKIN: Warm, dry, normal turgor, no rashes or lesions noted Laboratory Results - last 24 hr 05/23/18 05/24/18 05/24/18 23:40 05:30 05:30 WBC 11.2 H RBC 5.06 Hgb 14.3 Hct 43.5 MCV 86.0 MCH 28.3 MCHC 32.9 RDW 14.0 Plt Count 211 MPV 8.4 Absolute Neuts (auto) 8.4 Neutrophils % 75.2 D Lymphocytes % 16.1 D Monocytes % 8.5 D Eosinophils % 0.0 D Basophils % 0.2 Nucleated RBC % 0 Sodium Cancelled Potassium Cancelled Chloride Cancelled Carbon Dioxide Cancelled Anion Gap Cancelled BUN Cancelled Creatinine Cancelled Creat Clearance w eGFR Cancelled POC Glucometer [phone] Random Glucose Cancelled Calcium Cancelled Phosphorus Cancelled Magnesium Cancelled Total Bilirubin Cancelled AST Cancelled ALT Cancelled Alkaline Phosphatase Cancelled Total Protein Cancelled Albumin Cancelled 05/24/18 08:35 WBC RBC Hgb Hct MCV MCH MCHC RDW Plt Count MPV Absolute Neuts (auto) Neutrophils % Lymphocytes % Monocytes % Eosinophils % Basophils % Nucleated RBC % Sodium 140 Potassium 4.4 Chloride 103 Carbon Dioxide 24 Anion Gap 13 BUN 10 Creatinine 0.6 Creat Clearance w eGFR > 60 POC Glucometer Random Glucose 175 H Calcium 9.2 Phosphorus 3.7 Magnesium 2.0 Total Bilirubin 0.5 AST 24 ALT 32 Alkaline Phosphatase 74 Total Protein 6.9 Albumin 3.7 Active Medications Generic Name Dose Route Start Last Admin Trade Name Usman PRN Reason Stop Dose Admin Acetaminophen 650 mg 05/23/18 22:00 05/24/18 10:44 Tylenol - PO 05/26/18 21:59 Not Given Q6H [facility] Albuterol/Ipratropium 1 amp 05/23/18 21:53 05/24/18 12:10 Duoneb - NEB Not Given RQID [facility] Aspirin 81 mg 05/24/18 10:00 05/24/18 09:13 Asa - PO 81 mg DAILY [facility] Administration Chlorhexidine Gluconate 1 applic 05/23/18 22:00 05/23/18 22:25 Hibiclens For Decolonization - TP 1 applic HS [facility] Administration Ezetimibe 10 mg 05/24/18 10:00 05/24/18 10:52 Zetia - PO 10 mg DAILY [facility] Administration Heparin Sodium (Porcine) 5,000 unit 05/23/18 22:00 05/24/18 09:12 Heparin - SQ 5,000 unit BID [facility] Administration Lactated Ringer's 1,000 mls @ 75 mls/hr 05/23/18 16:15 05/23/18 22:21 Lactated Ringers Solution IV 75 mls/hr ASDIR [facility] Administration Insulin Aspart 1 vial 05/23/18 22:00 05/24/18 15:54 Novolog Vial Sliding Scale - SQ Not Given ACHS [facility] Protocol Ketorolac Tromethamine 15 mg 05/24/18 14:15 Toradol Injection - IVPUSH 05/29/18 14:14 Q6H-IV [facility] Lidocaine 1 patch 05/24/18 10:00 05/24/18 09:13 Lidoderm Patch - TP 1 patch DAILY [facility] Administration Miscellaneous 1 each 05/24/18 22:00 Lidoderm Patch Removal MC DAILY@2200 [facility] Mupirocin 1 applic 05/23/18 22:00 05/24/18 10:49 Bactroban Ointment (For Decolonization) - NS 05/28/18 21:59 Not Given BID [facility] Non-Formulary Medication 300 mg 05/24/18 10:00 Canagliflozin [Invokana] PO DAILY [facility] Non-Formulary Medication 8 mcg 05/24/18 10:00 Lubiprostone [Amitiza] PO DAILY [facility] Ondansetron HCl 4 mg 05/23/18 21:34 05/24/18 12:18 Zofran Injection IVPB 4 mg Q6H PRN Administration NAUSEA Pantoprazole Sodium 40 mg 05/24/18 13:30 05/24/18 13:34 Protonix Iv IVPUSH Not Given DAILY [facility] Pantoprazole Sodium 40 mg 05/24/18 22:00 Protonix Iv IVPUSH 05/24/18 22:01 ONCE ONE Prochlorperazine Edisylate 10 mg 05/24/18 12:16 05/24/18 14:48 Compazine Injection - IVPB 10 mg Q4H PRN Administration NAUSEA AND/OR VOMITING Ramipril 2.5 mg 05/24/18 10:00 05/24/18 09:14 Altace - PO 2.5 mg BID [facility] Administration Ranitidine HCl 150 mg 05/24/18 22:00 Zantac - PO HS [facility] Rosuvastatin Calcium 30 mg 05/24/18 22:00 Crestor - PO HS [facility] Tramadol HCl 50 mg 05/24/18 08:30 05/24/18 12:41 Ultram - PO Not Given Q6HPO [facility] ASSESSMENT/PLAN: 62 yo Female admitted to the ICU post-op following a VATS procedure with wedge resection from the Right Lower lobe Neuro Pt is neurologically in tact with no acute neuro processes Cardio HTN - Ramipril 2.5 mg PO BID Res[facility] Post op Day 1 VATS wedge resection RLL Chest tube is in place with no air leak Minimal drainage today Discussed removal with CT surgery planned for (05/26) Encouraged patient to use incentive spirometer to prevent atelectasis Duonebs RQID Hx of NSCC on the Left, resected 2 years ago Awaiting pathology from wedge resection yesterday Nodule on CT preop noted to be irregular, spiculated, with possible calcification and central necrosis dDX could include recurrence of previous CA GI Still complaining of nausea and vomiting - most likely due to advancing her diet too quickly post-op Zofran 4 mg IV Q6 prn Compazine 10 mg IV Q4 prn Protonix 40 mg IV Daily Post-op care Chest tube as mentioned above OOB today pulmonary toilet and incentive spirometry to prevent atelectasis Pain is adequately controlled with GENERAL OPERATOR toradol 15mg IVQ6 attempt to convert to PO pain medication tramadol 50mg PO Q6 DM Blood glucose well controlled currently on home medications with insulin sliding scale for necessary breakthrough treatment VTE prophylaxis Heparin 5000 units SQ BID Patient out of bed and mobile as tolerated FEN Fluids: Lactated Ringer at 75 cc/hr for fluid maintenance until diet is tolerated Electrolytes: Currently no electrolyte abnormalities Nutrition: Did not tolerate soft diet. Downgraded to full liquid and will advance diet as tolerated by nausea/vomiting Disposition [facility] or tomorrow. Visit type - Emergency Visit Emergency Visit: Yes ED Registration Date: 05/23/18 Care time: The patient presented to the Emergency Department on the above date and was hospitalized for further evaluation of their emergent condition. - New Patient This patient is new to me today: Yes Date on this admission: 05/24/18 - Critical Care Critical Care patient: Yes Total Critical Care Time (in minutes): 45 Critical Care Statement: The care of this patient involved high complexity decision making to prevent further life threatening deterioration of the patient 's condition and/or to evaluate & treat vital organ system(s) failure or risk of failure.
[2018-05-24] MEDS ORDERED: DOCUSATE SODIUM 100 MG CAPSULE (FP) PO PRN (16:45)
[2018-05-24 17:23] LABS: HEMATOCRIT 43.3 % (32.4-45.2); MCH 28.1 pg (25.7-33.7); MCHC 32.4 g/dl (32.0-36.0); MEAN CELL VOLUME 86.9 fl (80-96); MEAN PLT VOLUME 8.4 fl (7.5-11.1); PLATELET COUNT 227 K/MM3 (134-434); RBC 4.99 M/mm3 (3.60-5.2); RDW 14.2 % (11.6-15.6); WHITE BLOOD COUNT 14.1 K/mm3 (4.0-10.0)
[2018-05-24] MEDS: KETOROLAC TROMETHAMINE 15 MG/ML VIAL IVPUSH SCH ×3 (17:33→23:30)
[2018-05-24] MEDS ORDERED: LIDOCAINE PATCH REMOVAL MC SCH (22:00)
[2018-05-24] MEDS ORDERED: RANITIDINE HCL 150 MG TABLET (FP) PO SCH (22:00)
[2018-05-24] MEDS ORDERED: PANTOPRAZOLE SODIUM 40 MG VIAL IVPUSH ONE (22:00)
[2018-05-24] MEDS ORDERED: ROSUVASTATIN CA 10 MG TABLET (FP) PO SCH (22:00)
[2018-05-24] MEDS: CHLORHEXIDINE GLUCONATE 4% CLEANSER FOR DECOLONIZATION TP SCH (22:00)
[2018-05-25] MEDS: KETOROLAC TROMETHAMINE 15 MG/ML VIAL IVPUSH SCH ×3 (03:26→21:15)
[2018-05-25] MEDS: ACETAMINOPHEN 325 MG TABLET (FP) PO SCH ×4 (03:27→21:23)
[2018-05-25] MEDS: traMADol HCL 50 MG TABLET PO SCH ×5 (06:08→23:36)
[2018-05-25 06:10] LABS: BASO % 0.2 % (0-2.0); EOS % 0.4 % (0-4.5); HEMATOCRIT 39.4 % (32.4-45.2); HEMOGLOBIN 13.1 GM/dL (10.7-15.3); LYMPH % 22.1 % (8-40); MCH 28.8 pg (25.7-33.7); MCHC 33.4 g/dl (32.0-36.0); MEAN CELL VOLUME 86.2 fl (80-96); MEAN PLT VOLUME 8.2 fl (7.5-11.1); MONO % 9.1 % (3.8-10.2); NEUT % 68.2 % (42.8-82.8); PLATELET COUNT 184 K/MM3 (134-434); RBC 4.56 M/mm3 (3.60-5.2); RDW 13.8 % (11.6-15.6); WHITE BLOOD COUNT 9.8 K/mm3 (4.0-10.0)
[2018-05-25 06:43] LABS: ALBUMIN 3.1 g/dl (3.4-5.0); ANION GAP 11 (8-16); BLOOD UREA NITROGEN 8 mg/dL (7-18); CALCIUM 8.7 mg/dL (8.5-10.1); CHLORIDE 103 mmol/L (98-107); CO2 25 mmol/L (21-32); CREATININE 0.5 mg/dL (0.55-1.02); GLUCOSE,RANDOM 133 mg/dL (74-106); MAGNESIUM 1.9 mg/dL (1.8-2.4); PHOSPHOROUS 2.6 mg/dL (2.5-4.9); SGOT/AST 13 U/L (15-37); SGPT/ALT 25 U/L (12-78); SODIUM 139 mmol/L (136-145)
[2018-05-25 06:45] LABS: ALK PHOS 65 U/L (45-117); BILIRUBIN,TOTAL 0.6 mg/dL (0.2-1.0)
[2018-05-25] MEDS: INSULIN SLIDING SCALE (NOVOLOG) 1 VIAL SQ SCH ×4 (06:49→21:43)
[2018-05-25] MEDS: ALBUTEROL SO4 2.5/IPRATROPIUM 0.5 INH SOL 3 ML VIAL.NEB. NEB SCH ×4 (07:45→20:38)
--- NOTE | 2018-05-25 08:48 | PN ---
Progress Note, Physician History of Present Illness: Feels better no nausea some pain on deep breathing - Current Medication List Current Medications: Active Medications Acetaminophen (Tylenol -) 650 mg PO Q6H [facility] Stop: 05/26/18 21:59 Last Admin: 05/25/18 03:27 Dose: Not Given Albuterol/Ipratropium (Duoneb -) 1 amp NEB RQID [facility] Last Admin: 05/24/18 20:31 Dose: 1 amp Aspirin (Asa -) 81 mg PO DAILY [facility] Last Admin: 05/24/18 09:13 Dose: 81 mg Chlorhexidine Gluconate (Hibiclens For Decolonization -) 1 applic TP HS [facility] Last Admin: 05/24/18 22:00 Dose: 1 applic Docusate Sodium (Colace -) 100 mg PO BID [facility] Ezetimibe (Zetia -) 10 mg PO DAILY [facility] Last Admin: 05/24/18 10:52 Dose: 10 mg Heparin Sodium (Porcine) (Heparin -) 5,000 unit SQ BID [facility] Last Admin: 05/24/18 22:00 Dose: 5,000 unit Lactated Ringer's (Lactated Ringers Solution) 1,000 mls @ 75 mls/hr IV ASDIR [facility] Last Admin: 05/23/18 22:21 Dose: 75 mls/hr Insulin Aspart (Novolog Vial Sliding Scale -) 1 vial SQ [facility]; Protocol Last Admin: 05/25/18 06:49 Dose: Not Given Ketorolac Tromethamine (Toradol Injection -) 15 mg IVPUSH Q6H-IV [facility] Stop: 05/29/18 14:14 Last Admin: 05/25/18 03:26 Dose: 15 mg Lidocaine (Lidoderm Patch -) 1 patch TP DAILY [facility] Last Admin: 05/24/18 09:13 Dose: 1 patch Miscellaneous (Lidoderm Patch Removal) 1 each MC DAILY@2200 [facility] Last Admin: 05/24/18 23:34 Dose: 1 each Mupirocin (Bactroban Ointment (For Decolonization) -) 1 applic NS BID [facility] Stop: 05/28/18 21:59 Last Admin: 05/24/18 22:00 Dose: 1 applic Non-Formulary Medication (Canagliflozin [Invokana]) 300 mg PO DAILY [facility] Non-Formulary Medication (Lubiprostone [Amitiza]) 8 mcg PO DAILY [facility] Ondansetron HCl (Zofran Injection) 4 mg IVPB Q6H PRN PRN Reason: NAUSEA Last Admin: 05/24/18 12:18 Dose: 4 mg Pantoprazole Sodium (Protonix Iv) 40 mg IVPUSH DAILY [facility] Last Admin: 05/24/18 13:34 Dose: Not Given Prochlorperazine Edisylate (Compazine Injection -) 10 mg IVPB Q4H PRN PRN Reason: NAUSEA AND/OR VOMITING Last Admin: 05/24/18 14:48 Dose: 10 mg Ramipril (Altace -) 2.5 mg PO BID [facility] Last Admin: 05/24/18 22:00 Dose: 2.5 mg Ranitidine HCl (Zantac -) 150 mg PO [facility] Last Admin: 05/24/18 22:00 Dose: 150 mg Rosuvastatin Calcium (Crestor -) 30 mg PO [facility] Last Admin: 05/24/18 21:57 Dose: 30 mg Tramadol HCl (Ultram -) 50 mg PO Q6HPO [facility] Last Admin: 05/25/18 06:08 Dose: 50 mg - Objective Vital Signs: Vital Signs Temperature 98.8 F 05/25/18 06:00 Pulse Rate 91 H 05/25/18 06:00 Respiratory Rate 24 05/25/18 06:00 Blood Pressure 140/64 05/25/18 06:00 O2 Sat by Pulse Oximetry (%) 96 05/24/18 21:00 Cardiovascular: Yes: Regular Rate and Rhythm Respiratory: Yes: On Nasal O2, Rales Gastrointestinal: Yes: Normal Bowel Sounds, Soft Labs: CBC, BMP 05/25/18 05:30 05/25/18 05:30 Problem List - Problems (1) Lung cancer Assessment/Plan: Operative Date: 05/23/18 Pre-Operative Diagnosis: Lung cancer Operation: Bronchoscopy, right VATS wedge, lymph node sampling, intercostal nerve block. Findings: Normal bronchoscopy, level 9 lymph node normal appearing, nodule palpable and gross margin negative. Post-Operative Diagnosis: Same as Pre-op Surgeon: Oneil Pyle Chest Tube in place further plan per surgery Code(s): C34.90 - MALIGNANT NEOPLASM OF UNSP PART OF UNSP BRONCHUS OR LUNG (2) Non-occlusive coronary artery disease Assessment/Plan: -no cp -same meds -ekg --nonspecific changes -trop negative -cardio Code(s): I25.10 - ATHSCL HEART DISEASE OF [place] CORONARY ARTERY W/O ANG PCTRS (3) Type 2 diabetes mellitus Assessment/Plan: -bgm and ss Code(s): E11.9 - TYPE 2 DIABETES MELLITUS WITHOUT COMPLICATIONS
[2018-05-25] MEDS ORDERED: KETOROLAC TROMETHAMINE 30 MG/1 ML VIAL IVPUSH SCH (09:07)
[2018-05-25] MEDS: RAMIPRIL 2.5 MG CAPSULE (FP) PO SCH ×2 (09:15→21:44)
[2018-05-25] MEDS: ASPIRIN 81 MG CHEWABLE TABLETS PO SCH (09:15)
[2018-05-25] MEDS: MUPIROCIN 2% TOPICAL OINTMENT FOR DECOLONIZATION NS SCH (09:16)
[2018-05-25] MEDS: LIDOCAINE 5% TOPICAL PATCH TP SCH (09:16)
[2018-05-25] MEDS: PANTOPRAZOLE SODIUM 40 MG VIAL IVPUSH SCH (09:16)
[2018-05-25] MEDS: HEPARIN NA (PORCINE) 5,000 UNITS/ML 1ML VIAL SQ SCH ×2 (09:16→21:43)
[2018-05-25] MEDS ORDERED: PT OWN MED DRAWER 7, Y5N ONE (09:28)
[2018-05-25] MEDS: EZETIMIBE 10 MG TABLET (FP) PO SCH (09:28)
[2018-05-25] MEDS ORDERED: guaiFENesin/D-METHORPHAN HB 1 EACH TAB.ER.12H PO SCH (10:00)
[2018-05-25] MEDS ORDERED: DOCUSATE SODIUM 100 MG CAPSULE (FP) PO SCH (10:00)
--- NOTE | 2018-05-25 11:07 | PN ---
Teaching Attending Note Name of Resident: Ronald Smith ATTENDING PHYSICIAN STATEMENT I saw and evaluated the patient. I reviewed the resident's note and discussed the case with the resident. I agree with the resident's findings and plan as documented. SUBJECTIVE: Patient seen and examined in the ICU. Chest tube on water seal from yesterday. Less discomfort at the CT site. 100cc output. No air leak noted on Pleuravac. CXR: Increase right base atelectasis/effusion Intake & Output 05/22/18 05/23/18 05/24/18 05/25/18 23:59 23:59 23:59 23:59 Intake Total 1900 1200 1550 Output Total 1250 1850 150 Balance 650 -650 1400 Weight 152 lb Last Vital Signs Temp Pulse Resp BP Pulse Ox 98.9 F 85 21 134/68 96 05/25/18 10:28 05/25/18 10:12 05/25/18 10:12 05/25/18 10:12 05/25/18 09:00 Active Medications Acetaminophen (Tylenol -) 650 mg PO Q6H [facility] Stop: 05/26/18 21:59 Last Admin: 05/25/18 09:16 Dose: 650 mg Albuterol/Ipratropium (Duoneb -) 1 amp NEB RQID [facility] Last Admin: 05/25/18 07:45 Dose: 1 amp Aspirin (Asa -) 81 mg PO DAILY [facility] Last Admin: 05/25/18 09:15 Dose: 81 mg Chlorhexidine Gluconate (Hibiclens For Decolonization -) 1 applic TP HS [facility] Last Admin: 05/24/18 22:00 Dose: 1 applic Docusate Sodium (Colace -) 100 mg PO BID [facility] Last Admin: 05/25/18 09:16 Dose: 100 mg Ezetimibe (Zetia -) 10 mg PO DAILY [facility] Last Admin: 05/25/18 09:28 Dose: 10 mg Guaifenesin (Mucinex Dm -) 1 tablet PO BID [facility] Last Admin: 05/25/18 09:25 Dose: 1 tablet Heparin Sodium (Porcine) (Heparin -) 5,000 unit SQ BID [facility] Last Admin: 05/25/18 09:16 Dose: 5,000 unit Insulin Aspart (Novolog Vial Sliding Scale -) 1 vial SQ [facility]; Protocol Last Admin: 05/25/18 06:49 Dose: Not Given Ketorolac Tromethamine (Toradol Injection -) 15 mg IVPUSH Q6H-IV [facility] Stop: 05/29/18 14:14 Lidocaine (Lidoderm Patch -) 1 patch TP DAILY [facility] Last Admin: 05/25/18 09:16 Dose: 1 patch Miscellaneous (Lidoderm Patch Removal) 1 each MC DAILY@2200 [facility] Last Admin: 05/24/18 23:34 Dose: 1 each Mupirocin (Bactroban Ointment (For Decolonization) -) 1 applic NS BID [facility] Stop: 05/28/18 21:59 Last Admin: 05/25/18 09:16 Dose: 1 applic Non-Formulary Medication (Canagliflozin [Invokana]) 300 mg PO DAILY [facility] Non-Formulary Medication (Lubiprostone [Amitiza]) 8 mcg PO DAILY [facility] Ondansetron HCl (Zofran Injection) 4 mg IVPB Q6H PRN PRN Reason: NAUSEA Last Admin: 05/24/18 12:18 Dose: 4 mg Pantoprazole Sodium (Protonix -) 40 mg PO DAILY [facility] Prochlorperazine Edisylate (Compazine Injection -) 10 mg IVPB Q4H PRN PRN Reason: NAUSEA AND/OR VOMITING Last Admin: 05/24/18 14:48 Dose: 10 mg Ramipril (Altace -) 2.5 mg PO BID [facility] Last Admin: 05/25/18 09:15 Dose: 2.5 mg Ranitidine HCl (Zantac -) 150 mg PO [facility] Last Admin: 05/24/18 22:00 Dose: 150 mg Rosuvastatin Calcium (Crestor -) 30 mg PO [facility] Last Admin: 05/24/18 21:57 Dose: 30 mg Tramadol HCl (Ultram -) 50 mg PO Q6HPO [facility] Last Admin: 05/25/18 06:08 Dose: 50 mg GENERAL: Awake, alert, and fully oriented, NAD EARS, NOSE, THROAT: Moist mucous membranes. LUNGS: decrease air entry at bases, Right CT intact, no air leak HEART: S1S2 normal, regular ABDOMEN: Soft, nontender, not distended, normoactive bowel sounds, no guarding, no rebound, no masses. MUSCULOSKELETAL: Normal range of motion at all joints. No bony deformities or tenderness. No CVA tenderness. UPPER EXTREMITIES: 2+ pulses, warm, well-perfused. No peripheral edema. LOWER EXTREMITIES: warm, No calf tenderness. No peripheral edema. PSYCHIATRIC: Cooperative. Good eye contact. SKIN: Warm, dry, Laboratory Results - last 24 hr 05/23/18 05/24/18 05/24/18 23:40 05:30 05:30 WBC 11.2 H RBC 5.06 Hgb 14.3 Hct 43.5 MCV 86.0 MCH 28.3 MCHC 32.9 RDW 14.0 Plt Count 211 MPV 8.4 Absolute Neuts (auto) 8.4 Neutrophils % 75.2 D Lymphocytes % 16.1 D Monocytes % 8.5 D Eosinophils % 0.0 D Basophils % 0.2 Nucleated RBC % 0 Sodium Cancelled Potassium Cancelled Chloride Cancelled Carbon Dioxide Cancelled Anion Gap Cancelled BUN Cancelled Creatinine Cancelled Creat Clearance w eGFR Cancelled POC Glucometer [phone] Random Glucose Cancelled Calcium Cancelled Phosphorus Cancelled Magnesium Cancelled Total Bilirubin Cancelled AST Cancelled ALT Cancelled Alkaline Phosphatase Cancelled Total Protein Cancelled Albumin Cancelled 05/24/18 08:35 WBC RBC Hgb Hct MCV MCH MCHC RDW Plt Count MPV Absolute Neuts (auto) Neutrophils % Lymphocytes % Monocytes % Eosinophils % Basophils % Nucleated RBC % Sodium 140 Potassium 4.4 Chloride 103 Carbon Dioxide 24 Anion Gap 13 BUN 10 Creatinine 0.6 Creat Clearance w eGFR > 60 POC Glucometer Random Glucose 175 H Calcium 9.2 Phosphorus 3.7 Magnesium 2.0 Total Bilirubin 0.5 AST 24 ALT 32 Alkaline Phosphatase 74 Total Protein 6.9 Albumin 3.7 ASSESSMENT/PLAN: POD #2 Right VATS; RLL wedge resection, mediastinal lymph node sampling, intercostal nerve block 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 HTN HLD DM CAD Peripharal neuropathy. Plan Monitor chest tube output Incentive Spirometry. BD TX Pain control PO as tolerated Blood glucose monitoring. IVF VTE prophylaxis Floor Dr Leslie Critical care time spent in reviewing chart, evaluating patient and formulating plan - 36 minutes.
--- NOTE | 2018-05-25 12:24 | PN ---
Physical Exam: SUBJECTIVE: No events overnight. Pt continues to use incentive spirometer frequently. Pt passing flatus, no BM at this time. Pain is well controlled. OBJECTIVE: Vital Signs Period Temp Pulse Resp BP Sys/Dickson Pulse Ox Last 24 Hr 98.8 F-100.5 F 85-109 16-24 119-151/60-87 96-96 GENERAL: NAD, awake, alert, and fully oriented HEENT: NC/AT, EOMI, CINDI, MMM LUNGS: RLL diminished breath sounds otherwise CTA. Chest Tube in place to waterseal without any leak (provoked/unprovoked) HEART: RRR, S1, S2 without murmur ABDOMEN: Soft, NT/ND, normoactive bowel sounds, no guarding EXTREMITIES: 2+ DP pulses, warm, no edema. NEUROLOGICAL: risk assessment consultant II through XII grossly intact. Sensation intact throughout. Strength 5/5 throughout UExt and LExt llamas PSYCH: Normal mood, normal affect. SKIN: Warm, dry, no rashes or lesions noted Laboratory Results - last 24 hr 05/24/18 05/24/18 05/24/18 16:27 16:30 23:24 WBC 14.1 H RBC 4.99 Hgb 14.0 Hct 43.3 MCV 86.9 MCH 28.1 MCHC 32.4 RDW 14.2 Plt Count 227 MPV 8.4 Absolute Neuts (auto) Neutrophils % Lymphocytes % Monocytes % Eosinophils % Basophils % Nucleated RBC % Sodium Potassium Chloride Carbon Dioxide Anion Gap BUN Creatinine Creat Clearance w eGFR POC Glucometer [phone] Random Glucose Calcium Phosphorus Magnesium Total Bilirubin AST ALT Alkaline Phosphatase Creatine Kinase Creatine Kinase Index CK-MB (CK-2) Troponin I Total Protein Albumin 05/25/18 05/25/18 05/25/18 05:30 05:30 08:00 WBC 9.8 RBC 4.56 Hgb 13.1 Hct 39.4 MCV 86.2 MCH 28.8 MCHC 33.4 RDW 13.8 Plt Count 184 MPV 8.2 Absolute Neuts (auto) 6.7 Neutrophils % 68.2 Lymphocytes % 22.1 D Monocytes % 9.1 Eosinophils % 0.4 D Basophils % 0.2 Nucleated RBC % 0 Sodium 139 Potassium 4.0 Chloride 103 Carbon Dioxide 25 Anion Gap 11 BUN 8 Creatinine 0.5 L Creat Clearance w eGFR > 60 POC Glucometer Random Glucose 133 H Calcium 8.7 Phosphorus 2.6 Magnesium 1.9 Total Bilirubin 0.6 AST 13 L ALT 25 Alkaline Phosphatase 65 Creatine Kinase 372 H Cancelled Creatine Kinase Index 0.3 CK-MB (CK-2) 1.30 Troponin I < 0.02 Cancelled Total Protein 6.0 L Albumin 3.1 L Active Medications Generic Name Dose Route Start Last Admin Trade Name Usman PRN Reason Stop Dose Admin Acetaminophen 650 mg 05/23/18 22:00 05/25/18 09:16 Tylenol - PO 05/26/18 21:59 650 mg Q6H JASON Administration Albuterol/Ipratropium 1 amp 05/23/18 21:53 05/25/18 07:45 Duoneb - NEB 1 amp RQID JASON Administration Aspirin 81 mg 05/24/18 10:00 05/25/18 09:15 Asa - PO 81 mg DAILY JASON Administration Chlorhexidine Gluconate 1 applic 05/23/18 22:00 05/24/18 22:00 Hibiclens For Decolonization - TP 1 applic HS JASON Administration Docusate Sodium 100 mg 05/25/18 10:00 05/25/18 09:16 Colace - PO 100 mg BID JASON Administration Ezetimibe 10 mg 05/24/18 10:00 05/25/18 09:28 Zetia - PO 10 mg DAILY [facility]ON Administration Guaifenesin 1 tablet 05/25/18 10:00 05/25/18 09:25 Mucinex Dm - PO 1 tablet BID [facility] Administration Heparin Sodium (Porcine) 5,000 unit 05/23/18 22:00 05/25/18 09:16 Heparin - SQ 5,000 unit BID [facility]ON Administration Insulin Aspart 1 vial 05/23/18 22:00 05/25/18 12:03 Novolog Vial Sliding Scale - SQ 6 units ACHS JASON Administration Protocol Ketorolac Tromethamine 15 mg 05/25/18 09:07 Toradol Injection - IVPUSH 05/29/18 14:14 Q6H-IV [facility] Lidocaine 1 patch 05/24/18 10:00 05/25/18 09:16 Lidoderm Patch - TP 1 patch DAILY [facility] Administration Miscellaneous 1 each 05/24/18 22:00 05/24/18 23:34 Lidoderm Patch Removal MC 1 each DAILY@2200 [facility]ON Administration Mupirocin 1 applic 05/23/18 22:00 05/25/18 09:16 Bactroban Ointment (For Decolonization) - NS 05/28/18 21:59 1 applic BID [facility]ON Administration Non-Formulary Medication 300 mg 05/24/18 10:00 Canagliflozin [Invokana] PO DAILY [facility] Non-Formulary Medication 8 mcg 05/24/18 10:00 Lubiprostone [Amitiza] PO DAILY [facility] Ondansetron HCl 4 mg 05/23/18 21:34 05/24/18 12:18 Zofran Injection IVPB 4 mg Q6H PRN Administration NAUSEA Pantoprazole Sodium 40 mg 05/26/18 10:00 Protonix - PO DAILY [facility] Prochlorperazine Edisylate 10 mg 05/24/18 12:16 05/24/18 14:48 Compazine Injection - IVPB 10 mg Q4H PRN Administration NAUSEA AND/OR VOMITING Ramipril 2.5 mg 05/24/18 10:00 05/25/18 09:15 Altace - PO 2.5 mg BID [facility] Administration Ranitidine HCl 150 mg 05/24/18 22:00 05/24/18 22:00 Zantac - PO 150 mg HS [facility] Administration Rosuvastatin Calcium 30 mg 05/24/18 22:00 05/24/18 21:57 Crestor - PO 30 mg HS [facility]ASON Administration Tramadol HCl 50 mg 05/24/18 08:30 05/25/18 12:07 Ultram - PO 50 mg Q6HPO [facility] Administration ASSESSMENT/PLAN: Neuro: Neurologically intact Respiratory: POD 1 VATS segementectomy of RLL --CTube in place w/o any air leak --F/U pathology report --Dr. Pyle on board --Incentive spirometry encouraged --Pain control --Toradol 15mg q6h IV PRN --Lidoderm patch available --Tramadol 50mg PO Q6h [facility] Cardiovascular: HTN: --Continue Ramipril 2.5mg PO BID GI Nausea post-op --Zofran 4mg IV q6h PRN --Compazine 10mg q4h IV PRN FEN: Fluids: None indicated Electrolyte abnormalities: None today Nutrition: Continue full liquid; advance as tolerated PPX: DVT - Lovenox GI - On Protonix already Dispo: Continue ICU monitoring; CTube care per CT surgery Case discussed with Dr. Anuj Smith, DO - IM PGY-2 Visit type - Emergency Visit Emergency Visit: No - New Patient This patient is new to me today: No - Critical Care Critical Care patient: Yes Total Critical Care Time (in minutes): 35 Critical Care Statement: The care of this patient involved high complexity decision making to prevent further life threatening deterioration of the patient 's condition and/or to evaluate & treat vital organ system(s) failure or risk of failure.
--- NOTE | 2018-05-25 15:47 | EKG ---
Test Reason : Blood Pressure : / mmHG Vent. Rate : 089 BPM Atrial Rate : 089 BPM P-R Int : 134 ms QRS Dur : 092 ms QT Int : 360 ms P-R-T Axes : 054 031 035 degrees QTc Int : 438 ms NORMAL SINUS RHYTHM NORMAL ECG WHEN COMPARED WITH ECG OF 24-MAY-2018 08:46, NONSPECIFIC T WAVE ABNORMALITY NO LONGER EVIDENT IN ANTEROLATERAL LEADS Confirmed by LEO SALINAS, ELIZABETH ([id number]) on 05/25/2018 3:47:08 PM Referred By: Arcadio GASCA Confirmed By:ELIZABETH BAILEY MD
[2018-05-25] MEDS ORDERED: PROCHLORPERAZINE INJECTION 10 MG/2 ML VIAL IVPB PRN (18:27)
[2018-05-25] MEDS ORDERED: ONDANSETRON 4 MG/2 ML VIAL IVPB PRN (18:27)
[2018-05-25] MEDS: PATIENT'S OWN MEDICATION (NON-FORMULARY) (Lubiprostone [Amitiza] 8 MCG) PO SCH (18:30)
[2018-05-25] MEDS: PATIENT'S OWN MEDICATION (NON-FORMULARY) (Canagliflozin [Invokana] 300 MG) PO SCH (18:30)
[2018-05-25] MEDS ORDERED: INSULIN (NOVOLOG) ASPART 100 UNITS/ML 10ML VIAL ONE (21:04)
[2018-05-25] MEDS: DOCUSATE SODIUM 100 MG CAPSULE (FP) PO SCH (21:24)
[2018-05-25] MEDS: guaiFENesin/D-METHORPHAN HB 1 EACH TAB.ER.12H PO SCH (21:44)
[2018-05-25] MEDS ORDERED: LIDOCAINE PATCH REMOVAL MC SCH (22:00)
[2018-05-25] MEDS ORDERED: ROSUVASTATIN CA 10 MG TABLET (FP) PO SCH (22:00)
[2018-05-25] MEDS ORDERED: RANITIDINE HCL 150 MG TABLET (FP) PO SCH (22:00)
[2018-05-26] MEDS: KETOROLAC TROMETHAMINE 15 MG/ML VIAL IVPUSH SCH ×3 (03:09→14:35)
[2018-05-26] MEDS: ACETAMINOPHEN 325 MG TABLET (FP) PO SCH ×2 (05:00→10:17)
[2018-05-26] MEDS: traMADol HCL 50 MG TABLET PO SCH ×2 (06:05→12:02)
[2018-05-26] MEDS: INSULIN SLIDING SCALE (NOVOLOG) 1 VIAL SQ SCH ×2 (06:36→12:01)
--- NOTE | 2018-05-26 06:36 | HOSP ---
Physical Examination Vital Signs: Vital Signs Temperature 99 F 05/26/18 01:55 Pulse Rate 89 05/26/18 01:55 Respiratory Rate 20 05/26/18 01:55 Blood Pressure 157/77 05/26/18 01:55 O2 Sat by Pulse Oximetry (%) 96 05/25/18 21:00 Labs: CBC, BMP 05/25/18 05:30 05/25/18 05:30 Hospitalist Encounter Assessment: MD lab intern was paged at night (05/25) by nurse about pt c/o of R elbow/arm numbness. Pt was seen and examined at bedside, at which time she stated numbness was improving. There was no erythema or swelling in R arm. Sensation was only mildly decreased in the R elbow region. EGK was reviewed and showed normal sinus rhythm. CXR looked unremarkable. Visit type - Emergency Visit Emergency Visit: No - New Patient This patient is new to me today: No - Critical Care Critical Care patient: No
[2018-05-26] MEDS: ALBUTEROL SO4 2.5/IPRATROPIUM 0.5 INH SOL 3 ML VIAL.NEB. NEB SCH ×2 (07:30→14:35)
[2018-05-26] MEDS: ACETAMINOPHEN 1000 MG/100 ML VIAL (NON FORMULARY) IVPB ONE (07:46)
--- NOTE | 2018-05-26 08:55 | PN ---
Progress Note (short form) - Note Progress Note: surgery POD#3 Right VATS wedge, lymph node sampling. Patient seen and examined at bedside c/o some isolated right elbow numbness that began last night, she denies any pain or numbness in her right hand or fingers. Patient states her pain is controlled. She has been up OOB ambulating without assistance, she has is voiding but has not had a BM yet. She states that she has some anxiety this morning but denies any SOB, N/V, CP, fever of chills. Overall she feels well today. Vital Signs Temp 98.4 F 05/26/18 09:05 Pulse 83 18 09:05 Resp 18 05/26/18 09:05 BP 129/79 05/26/18 09:05 Pulse Ox 96 05/25/18 21:00 Intake & Output 05/25/18 05/25/18 05/26/18 11:59 23:59 11:59 Intake Total 1550 950 480 Output Total 150 200 55 Balance 1400 750 425 Intake: IV 1250 450 Lactated Ringers Solution 1250 450 1,000 ml @ 75 mls/hr IV ASDIR JASON Rx#:[id number] IVPB 200 Oral 100 500 480 Output: Chest Tube Drainage 150 200 55 Right Chest 150 200 55 Other: Voiding Method Toilet Toilet # Unmeasured Voids Constantnio 1 1 2 CBC, BMP 05/25/18 05:30 05/25/18 05:30 CXR from 05/25/18 20:44 reveals progressive fluid infiltrate at the right lung base with increase atelectasis at the left midlung. PE: A&Ox#, NAD unlabored resp on RA B/L lungs with diffuse wheezing and crackles throughout Chest tube at right chest in good position with 2 britni insitu and no evidence of air leak and ss discharge- output 75cc since midnight. Chest tube removed with tip fully intact after films and evaluation reviewed with Dr Pyle and post d/c CXR ordered. Patient tolerated the procedure well and a pressure dressing was applied. Patients right arm with no evidence of edema or erythema Plus 2 radial and ulnar pulses. full ROM at wrist and fingers. NVID Problem List - Problems (1) Lung cancer Assessment/Plan: POD #3 s/p VATs with pulm wedge with lymph node sampling. Chest tube removed on rounds. 1) follow up post pull X-Ray 2) Continue medical management 3) d/c planning Code(s): C34.90 - MALIGNANT NEOPLASM OF UNSP PART OF UNSP BRONCHUS OR LUNG
[2018-05-26 09:06] VITALS: BP 129/79; PULSE 83; TEMP 98.4
[2018-05-26] MEDS ORDERED: EZETIMIBE 10 MG TABLET (FP) PO SCH (10:00)
[2018-05-26] MEDS ORDERED: PATIENT'S OWN MEDICATION (NON-FORMULARY) (Canagliflozin [Invokana] 300 MG) PO SCH (10:00)
[2018-05-26] MEDS ORDERED: PATIENT'S OWN MEDICATION (NON-FORMULARY) (Lubiprostone [Amitiza] 8 MCG) PO SCH (10:00)
[2018-05-26] MEDS ORDERED: PANTOPRAZOLE 40 MG TABLET (FP) PO SCH ×2 (10:00)
[2018-05-26] MEDS ORDERED: ASPIRIN 81 MG CHEWABLE TABLETS PO SCH (10:00)
[2018-05-26] MEDS ORDERED: LIDOCAINE 5% TOPICAL PATCH TP SCH (10:00)
--- NOTE | 2018-05-26 10:04 | PN ---
Progress Note (short form) - Note Progress Note: PULMONARY Chest tube removed earlier. CXR read pending but does not appear to have a pneumo. Some dyspnea with ambulation. Vital Signs Period Temp Pulse Resp BP Sys/Dickson Pulse Ox Last 24 Hr 98.4 F-99 F 81-97 18-21 98-157/63-79 96 Gen: NAD at rest Heart: RRR Lung: decreased breath sounds at the bases Abd: soft, nontender Ext: no edema CBC, BMP 05/25/18 05:30 05/25/18 05:30 Active Medications Acetaminophen (Tylenol -) 650 mg PO Q6H [facility] Stop: 05/26/18 21:59 Last Admin: 05/26/18 05:00 Dose: 650 mg Albuterol/Ipratropium (Duoneb -) 1 amp NEB RQID [facility] Last Admin: 05/26/18 07:30 Dose: 1 amp Aspirin (Asa -) 81 mg PO DAILY [facility] Docusate Sodium (Colace -) 100 mg PO BID [facility] Last Admin: 05/25/18 21:24 Dose: 100 mg Ezetimibe (Zetia -) 10 mg PO DAILY [facility] Guaifenesin (Mucinex Dm -) 1 tablet PO BID [facility] Last Admin: 05/25/18 21:44 Dose: 1 tablet Heparin Sodium (Porcine) (Heparin -) 5,000 unit SQ BID [facility] Last Admin: 05/25/18 21:43 Dose: 5,000 unit Insulin Aspart (Novolog Vial Sliding Scale -) 1 vial SQ ACHS [facility]; Protocol Last Admin: 05/26/18 06:36 Dose: 4 units Ketorolac Tromethamine (Toradol Injection -) 15 mg IVPUSH Q6H-IV [facility] Stop: 05/29/18 14:14 Last Admin: 05/26/18 03:09 Dose: 15 mg Lidocaine (Lidoderm Patch -) 1 patch TP DAILY [facility] Miscellaneous (Lidoderm Patch Removal) 1 each DAILY@2200 [facility] Non-Formulary Medication (Canagliflozin [Invokana]) 300 mg PO DAILY [facility] Non-Formulary Medication (Lubiprostone [Amitiza]) 8 mcg PO DAILY [facility] Ondansetron HCl (Zofran Injection) 4 mg IVPB Q6H PRN PRN Reason: NAUSEA Pantoprazole Sodium (Protonix -) 40 mg PO DAILY [facility] Prochlorperazine Edisylate (Compazine Injection -) 10 mg IVPB Q4H PRN PRN Reason: NAUSEA AND/OR VOMITING Ramipril (Altace -) 2.5 mg PO BID [facility] Last Admin: 05/25/18 21:44 Dose: 2.5 mg Ranitidine HCl (Zantac -) 150 mg PO [facility] Last Admin: 05/25/18 21:24 Dose: 150 mg Rosuvastatin Calcium (Crestor -) 30 mg PO [facility] Last Admin: 05/25/18 21:23 Dose: 30 mg Tramadol HCl (Ultram -) 50 mg PO Q6HPO [facility] Last Admin: 05/26/18 06:05 Dose: 50 mg A/P NSCLC Lung Nodule s/p R VATS/wedge resection CAD HTN DM Hyperlipidemia - f/u official CXR read - f/u pathology - pain control - inhaled bronchodilators - can d/c home with outpt f/u from pulmonary standpoint if CXR without pneumothorax
[2018-05-26] MEDS: DOCUSATE SODIUM 100 MG CAPSULE (FP) PO SCH (10:14)
[2018-05-26] MEDS: guaiFENesin/D-METHORPHAN HB 1 EACH TAB.ER.12H PO SCH (10:15)
[2018-05-26] MEDS: RAMIPRIL 2.5 MG CAPSULE (FP) PO SCH (10:16)
[2018-05-26] MEDS: HEPARIN NA (PORCINE) 5,000 UNITS/ML 1ML VIAL SQ SCH (10:17)
--- NOTE | 2018-05-26 10:50 | DS ---
Physical Examination Vital Signs: Vital Signs Temperature 98.4 F 05/26/18 09:05 Pulse Rate 83 05/26/18 09:05 Respiratory Rate 18 05/26/18 09:05 Blood Pressure 129/79 05/26/18 09:05 O2 Sat by Pulse Oximetry (%) 96 05/25/18 21:00 Constitutional: Yes: Well Nourished, No Distress, Calm Cardiovascular: Yes: Regular Rate and Rhythm Respiratory: Yes: Regular Gastrointestinal: Yes: Normal Bowel Sounds, Soft Musculoskeletal: Yes: WNL Extremities: Yes: WNL Edema: No Peripheral Pulses WNL: Yes Neurological: Yes: Alert, Oriented Psychiatric: Yes: Alert, Oriented Labs: CBC, BMP 05/25/18 05:30 05/25/18 05:30 Discharge Summary Reason For Visit: LUNG CANCER Current Active Problems Lung cancer (Acute) Other Procedures: Operative Date: 05/23/18. Pre-Operative Diagnosis: Lung cancer. Operation: Bronchoscopy, right VATS wedge, lymph node sampling, intercostal nerve block. Findings: Normal bronchoscopy, level 9 lymph node normal appearing, nodule palpable and gross margin negative. Post-Operative Diagnosis: Same as Pre-op. Surgeon: Oneil Pyle Anesthesia: General. Specimens Removed: right lower lobe wedge, level 9 node. Estimated Blood Loss ( mls): 30. Drains & Tubes with Location: right chest tube. Operative Report Dictated: Yes Hospital Course: 62 Y/o f with pmh of non small cell carcinoma Left side s/p wedge resection 2 years ago was admitted by thorasic surgeon for vats on right side for new nodule which patient reports that it was malignant on FNAC. Patient reports that she was diagnosed with Right lung nodule about a year ago and was monitored with repeated scans but now it has some changes and fnac was done which as per patient is malignent and was planned for vats. Patient denies sob , cough, loss of weight, apatite, hemoptysis. Denies weakness in ay part of body. Vats done on with wedge resection and lymphnode biopsy of level 9. Patient has chest tube on right side, draining hemorrhagic fluid. Denies chest poain, sob, cough, haemoptysis. Also reports that PET scan was done which showed 2mm nodule in left breast and her primary is aware about it and they are monitoring it. Patient was a smoker smoked one pack a year for 35 years stopped 2 years ago. Condition: Stable - Instructions Referrals: Tanner Thorpe MD, MD [Staff Physician] - Oneil Pyle MD [Staff Physician] - Shahida Abraham MD [Staff Physician] - Disposition: VNS/HOME HEALTH CARE - Home Medications Comprehensive Discharge Medication List: Ambulatory Orders Ezetimibe [Zetia] 10 mg PO DAILY 10/22/16 Ramipril 2.5 mg PO BID 10/22/16 Aspirin [ASA -] 81 mg PO DAILY 11/08/17 Canagliflozin [Invokana] 300 mg PO DAILY 11/08/17 Lubiprostone [Amitiza] 8 mcg PO DAILY 11/08/17 Ranitidine HCl [Zantac] 150 mg PO HS 11/08/17 Rosuvastatin Calcium [Crestor] 30 mg PO HS 11/08/17
--- NOTE | 2018-05-26 11:29 | EKG ---
Test Reason : Blood Pressure : / mmHG Vent. Rate : 093 BPM Atrial Rate : 093 BPM P-R Int : 136 ms QRS Dur : 090 ms QT Int : 356 ms P-R-T Axes : 059 039 033 degrees QTc Int : 442 ms NORMAL SINUS RHYTHM NORMAL ECG WHEN COMPARED WITH ECG OF 25-MAY-2018 09:10, NO SIGNIFICANT CHANGE WAS FOUND Confirmed by SIVAN FONTANA MD ([id number]) on 05/26/2018 11:28:27 AM Referred By: Confirmed By:SIVAN FONTANA MD
[2018-05-26] MEDS ORDERED: LIDOCAINE PATCH REMOVAL MC SCH (22:00)
--- NOTE | 2018-05-30 15:07 | EKG ---
Test Reason : Blood Pressure : / mmHG Vent. Rate : 070 BPM Atrial Rate : 070 BPM P-R Int : 162 ms QRS Dur : 086 ms QT Int : 406 ms P-R-T Axes : 021 023 029 degrees QTc Int : 438 ms NORMAL SINUS RHYTHM NORMAL ECG WHEN COMPARED WITH ECG OF 08-NOV-2017 13:01, NO SIGNIFICANT CHANGE WAS FOUND Confirmed by CLAU LEMUS MD ([id number]) on 05/30/2018 3:07:10 PM Referred By: RAMA Confirmed By:CLAU LEMUS MD
--- NOTE | 2018-05-30 18:49 | PATH ---
Surgical Pathology Report Patient Name: JOSE DE JESUS GUZMAN Med. Rec. #: [id number] /Age/Gender: 1955 (Age: 62) / F Account: [id number] Location: [facility] MED/SURG Taken: 05/23/2018 Received: 05/23/2018 Reported: 05/30/2018 Physicians: Oneil Pyle M.D. Specimen(s) Received A: WEDGE RESECTION RIGHT LOWER LOBE B: MEDIASTINAL LYMPH NODE LEVEL 9 Clinical History Lung cancer Intraoperative Consult Diagnosis Right lower lobe wedge resection, frozen section: Adenocarcinoma. Margin is negative (total 2 blocks). Dagoberto Noguera M.D., 05/23/18 Final Diagnosis A. LUNG, RIGHT LOWER LOBE, WEDGE RESECTION: INVASIVE ADENOCARCINOMA, MODERATELY DIFFERENTIATED, ACINAR TYPE ADMIXED WITH PAPILLARY, LEPIDIC, AND MICROPAPILLARY SUBTYPE. THE TUMOR MEASURES 1.6 CM IN GREATEST DIMENSION. VISCERAL PLEURAL INVASION NOT IDENTIFIED. LYMPHOVASCULAR INVASION NOT IDENTIFIED. THE PARENCHYMAL MARGIN (STAPLE MARGIN) IS POSITIVE FOR INVASIVE CARCINOMA (SEE COMMENT). PTNM STAGE (AJCC 8TH EDITION): PT1B, PN0 COMMENT: THE FROZEN SECTION FOR THE MARGIN SHOWED FOCAL ATYPICAL ADENOMATOUS HYPERPLASIA, NEGATIVE FOR INVASIVE ADENOCARCINOMA. THE REMAINING ENTIRE STAPLE LINE MARGIN WAS SUBMITTED FOR PERMANENT SECTION, AND ONE FOCUS OF INVASIVE ADENOCARCINOMA (ACINAR TYPE) WAS IDENTIFIED, THIS FOCUS MEASURES 0.4 CM IN GREATEST DIMENSION. B. MEDIASTINAL LYMPH NODE LEVEL 9, EXCISION: ONE LYMPH NODE, NEGATIVE FOR CARCINOMA. Intradepartmental case reviewed with consensus on diagnosis. This case was discussed with Dr. Pyle on May 30, 2018. Comments Lung Carcinoma: Surgical Pathology Cancer Case Summary (Based on AJCC 8th edition) Procedure Wedge resection Specimen Laterality Right Tumor Site Lower lobe Total Tumor Size Inclusive of Invasive and Lepidic Components Greatest dimension (centimeters): 1.6 cm Invasive Tumor Size (applies only to invasive nonmucinous adenocarcinoma with a lepidic component) Greatest dimension (centimeters): 1.5cm Tumor Focality Single tumor Histologic Type Invasive adenocarcinoma, acinar type (40%) Other subtypes present: papillary (30%), lepidic (20%), micropapillary (10%) Histologic Grade G2: Moderately differentiated Visceral Pleura Invasion _x_ Not identified Lymphovascular Invasion _x_ Not identified Direct Invasion of Adjacent Structures _x_ No adjacent structures present Margins Parenchymal Margin _x_ Involved by invasive carcinoma Treatment Effect No known presurgical therapy Regional Lymph Nodes Number of Lymph Nodes Involved: 0 Number of Lymph Nodes Examined: 1 Pathologic Stage Classification (pTNM, AJCC 8th Edition) Primary Tumor (pT) pT1b: Tumor >1 cm, but =2 cm in greatest dimension Regional Lymph Nodes (pN) pN0: No regional lymph node metastasis Electronically Signed Arash Noguera M.D. Gross Description A. Received fresh labeled "wedge resection right lower lobe" is a 14.5 x 6.5 x 3.2 cm lung wedge with a stapled margin of resection. The pleura is bhagat-red and intact. There is a suture marking lung nodule, per surgeon. The staple line is inked blue and removed from the specimen. Sectioning reveals a 1.2 x 1.0 x 0.7 cm bhagat-red, firm mass grossly at 1.0 cm from closest resection margin. The mass is grossly 0.4 cm from the pleura. The remaining lung parenchyma is red and unremarkable. No definite lymph nodes are identified. A frozen section is performed on the mass as well as the closest staple line. Pediatric Oncology Nurse sections are submitted in 9 cassettes as follows: 1-frozen section residue of mass (margin inked blue); 2-frozen section residue of stapled margin closest to mass (grossly >1cm from the mass) ; 3-additional mass; 4-additional tissue surrounding mass; 7-1-abzxrpmivi lung parenchyma; 7-8-shave of remaining staple line; 9-possible lymph tissue. B. Received in formalin labeled "mediastinal lymph node level 9," is a 0.4 cm greatest dimension bhagat black lymph node. The specimen is submitted in total in one cassette. 05/23/201805/23/2018
== END 2018-05-26 15:27 | disposition home health service (06) | DRG 164 ==
LOC: EDSTATUS 14:11 → JSAMEDAYSX 05-23 09:34 → JICU 05-23 20:03 → J8W 05-25 16:30
PROVIDERS: ADMIT Surgery; ATTEND Surgery
PROC: 0W9940Z Drainage of Right Pleural Cavity with Drainage Device, Percutaneous Endoscopic Approach (ICD-10-PCS; 2018-05-23)
PROC: 0BBF4ZZ Excision of Right Lower Lung Lobe, Percutaneous Endoscopic Approach (ICD-10-PCS; principal; 2018-05-23 12:00)
PROC: 07B74ZX Excision of Thorax Lymphatic, Percutaneous Endoscopic Approach, Diagnostic (ICD-10-PCS; 2018-05-23 12:00)
DX: C34.31 Malignant neoplasm of lower lobe, right bronchus or lung (principal); J98.11 Atelectasis; I25.10 Atherosclerotic heart disease of native coronary artery without angina pectoris; E78.5 Hyperlipidemia, unspecified; E11.42 Type 2 diabetes mellitus with diabetic polyneuropathy; J44.9 Chronic obstructive pulmonary disease, unspecified; M79.7 Fibromyalgia; I11.0 Hypertensive heart disease with heart failure; I50.9 Heart failure, unspecified; Z87.891 Personal history of nicotine dependence
CPT/HCPCS: 36415; 71045-TC-FY; 80053; 82550; 82553; 82962; 83735; 84100; 84484; 85025; 85027; 86850; 86900; 86901; 88307-TC; 88331-TC; 93005; 93010; 93931; 94640; 94760; 97116-GP; 97161-GP; J0131; J1644; J7620

== ENCOUNTER 2018-06-13 00:25 | Emergency (ER) | payer OTHER ==
[2018-06-13 00:39] VITALS: TEMP 97.7; BMI 26.4
--- NOTE | 2018-06-13 00:47 | PDOC ---
Attending Attestation - Resident Resident Name: Rubina Lehman - ED Attending Attestation I have performed the following: I have examined & evaluated the patient, The case was reviewed & discussed with the resident, I agree w/resident's findings & plan - Physicial Exam PE: 06/13/18 04:08 Agree with resident exam. Pt has 4 surgical wounds on the right lateral chest and back. All well healing and no surrounding cellulitis. - Medical Decision Making 06/13/18 04:08 Patient Name: JOSE DE JESUS GUZMAN THIS IS A PRELIMINARY REPORT FROM [facility] DATE OF SERVICE: 2018-06-13 03:15:53 IMAGES: [id number] EXAM: CHEST CTA HISTORY: Rule out PE COMPARISON: None. FINDINGS: Status post right lower lobe lobectomy with a small to moderate sized complex multiloculated hydropneumothorax in mild compressive atelectasis . Infection is not excluded. Right abdominal flank wall subcutaneous emphysema is also noted. There are also sutures in the left upper lobe There is no PE or dissection. Heart size is normal. The trachea and remain bronchi are patent. There is no pericardial effusion. No fractures identified. The upper abdominal structures are normal. IMPRESSION: Small to moderate-sized postoperative complex right hydropneumothorax <Essence Wu - Last Filed: 06/13/18 04:08> - HPI HPI: 06/13/18 02:08 The patient is a 62 year old female, with a significant past medical history of DVT, HTN, DM, CAD, Fibromyalgia, Glaucoma, GERD, who presents to the emergency department via EMS with, chest pain and shortness of breath. The patient recently had a lobectomy a week ago at [facility] and was discharged two days ago. The patient was discharged with Dilaudid, however, she was allergic to it. She has been taking oxycodone at home which she had from the past, with minimal relief. Past surgical history:s/p lobectomy (05/2018), biopsy of a nodule in her left upper lobe (03/2016) s/p wedge resection (06/2016) Social history: Former smoker (35 years ago) PCP: Dr. Abraham - Physicial Exam PE: GENERAL: Awake, alert, and fully oriented, in no acute distress HEAD: No signs of trauma NECK: Normal ROM, supple, no lymphadenopathy, JVD, or masses +LUNGS: Decreased breath sounds in right lower due to resection. Breath sounds equal, clear to auscultation bilaterally. No wheezes, and no crackles HEART: Regular rate and rhythm, normal S1 and S2, no murmurs, rubs or gallops ABDOMEN: Soft, nontender, normoactive bowel sounds. No guarding, no rebound. No masses EXTREMITIES: Normal range of motion, no edema. No clubbing or cyanosis. No cords, erythema, or tenderness NEUROLOGICAL: Cranial nerves II through XII grossly intact. Normal speech, normal gait SKIN: 4 laproscopic surgical wounds healing well without surrounding cellulitis. Warm, Dry, normal turgor, no rashes or lesions noted. <Nisha Hale - Last Filed: 06/13/18 04:30> Heart Score/ECG Review #1 EKG performed at: 13 June 2018 at 1:25:47 Vent Rate 78 bpm NM interval 120 ms QRS duration 86 ms QT/QTc 378/430 ms P-R-T axes 45 27 37 <Nisha Hale - Last Filed: 06/13/18 04:30> Attestations - Attestations 06/13/18 02:09 Documentation prepared by Nisha Hale, acting as manager of medical for Essence Wu MD. <Nisha Hale - Last Filed: 06/13/18 04:30>
--- NOTE | 2018-06-13 00:49 | PDOC ---
History of Present Illness - General Chief Complaint: Pain, Acute Stated Complaint: R RIB PAIN Time Seen by Provider: 06/13/18 00:36 History Source: Patient Exam Limitations: No Limitations - History of Present Illness Initial Comments: This is a 62 YOF with h/o lung CA (non-SSC) s/p recent right lung VATS wedge resection early this month here with Dr. Pyle, followed one week ago by RLL lobectomy for residual malignancy detected, distant left lung wedge resection 2 years ago, multiple pneumothorax requiring chest tube in the setting of preceding lung surgeries, DVT, and IDDM, who p/w worsening right sided chest pain radiating to her right shoulder and associated with SOB. She reports her symptoms have been worsening since her most recent surgery a week ago. She was admitted at [facility] for this lobectomy and discharged home on the with Dilaudid for her pain. However, when she took a dose of Dilaudid after arriving home she broke out in hives on her face and chest. She instead took oxycodone from prior Rx over the past day but this has not been relieving her pain. She denies f/c/n/v/d/c, VERA, n/t/w, LOC, leg pain/swelling, or other symptoms. Past History - Past Medical History Allergies/Adverse Reactions: Allergies Allergy/AdvReac Type Severity Reaction Status Date / Time hydromorphone [From Dilaudid] Allergy Severe Hives Verified 06/13/18 01:16 gabapentin [From Neurontin] Allergy Intermediate Verified 06/13/18 00:32 pregabalin [From Lyrica] Allergy Intermediate Verified 06/13/18 00:32 oyster extract Allergy Verified 06/13/18 00:32 OYSTER BASE Allergy Severe Hives Uncoded 06/13/18 00:32 Home Medications: Ambulatory Orders Ezetimibe [Zetia] 10 mg PO DAILY 10/22/16 Ramipril 2.5 mg PO BID 10/22/16 Aspirin [ASA -] 162.5 mg PO DAILY 11/08/17 Canagliflozin [Invokana] 300 mg PO DAILY 11/08/17 Rosuvastatin Calcium [Crestor] 10 mg PO HS 11/08/17 Acetaminophen [Tylenol] 650 mg PO QID PRN 06/13/18 Docusate Sodium [Colace -] 100 mg PO TID 06/13/18 FENTANYL 12mcg PATCH [DURAGESIC 12mcg PATCH -] 1 each TD Q72H #5 patch MDD 1 Icosapent Ethyl [Vascepa] 1 gm PO BID 06/13/18 Lidocaine 5% Patch [Lidoderm Patch -] 1 patch TP DAILY 06/13/18 Omeprazole/Sodium Bicarbonate [Omeprazole-Bicarb 20-1,100 Cap] 1 each PO DAILY 06/13/18 Polyethylene Glycol 3350 [Miralax (For Daily Use) -] 17 gm PO DAILY PRN Sennosides [Senokotxtra] 17.2 mg PO HS PRN 06/13/18 clonazePAM [Klonopin -] 0.5 mg PO BID PRN 06/13/18 Anemia: Yes Cancer: Yes (Lung 2016) Cardiac Disorders: Yes (CAD/Atypical chest pain) COPD: (bronchitis) Diabetes: Yes HTN: Yes Hypercholesterolemia: Yes - Surgical History Lung Surgery: (LUNG BIOPSY 03/2016) - Suicide/Smoking/Psychosocial Hx Smoking Status: Yes Smoking History: Never smoked Have you smoked in the past 12 months: No Number of Cigarettes Smoked Daily: 3 If you are a former smoker, when did you quit?: 2016 Information on smoking cessation initiated: No 'Breaking Loose' booklet given: 07/06/15 Hx Alcohol Use: No Drug/Substance Use Hx: No Substance Use Type: None Hx Substance Use Treatment: No Review of Systems - Review of Systems Able to Perform ROS?: Yes Constitutional: No: Chills, Fever, Unexplained wgt Loss HEENTM: No: Nose Congestion, Throat Pain Respiratory: Yes: Shortness of Breath. No: Cough Cardiac (ROS): Yes: Chest Pain. No: Palpitations ABD/GI: No: Constipated, Diarrhea, Nausea, Vomiting : No: Burning, Dysuria Musculoskeletal: No: Back Pain, Neck Pain Integumentary: No: Bruising, Rash Neurological: No: Headache, Numbness, Tingling, Weakness, Dizziness Endocrine: No: Unexplained Weight Gain, Unexplained Weight Loss *Physical Exam - Vital Signs Last Vital Signs Temp Pulse Resp BP Pulse Ox 97.7 F 86 18 129/69 98 06/13/18 00:29 06/13/18 00:29 06/13/18 00:29 06/13/18 00:29 06/13/18 00:29 - Physical Exam General Appearance: Yes: Nourished, Appropriately Dressed, Other (a bit uncomfortable appearing adult female accompanied by at bedside, answering questions appropriately). No: Apparent Distress HEENT: positive: EOMI, Normal Voice, Hearing Grossly Normal. negative: Scleral Icterus (R), Scleral Icterus (L), Nasal Congestion Neck: positive: Trachea midline, Supple. negative: Tender, Rigid Respiratory/Chest: positive: Decreased Breath Sounds (on the right), Crackles ( diffuse on the left), Other (Surgical tape in place over healing surgical incisions to right lower chest wall, no soakthrough, no obvious bleeding, no drainage, no surrounding erythema). negative: Respiratory Distress, Rhonchi, Stridor, Wheezing Cardiovascular: positive: Regular Rhythm, Regular Rate. negative: Murmur Gastrointestinal/Abdominal: positive: Normal Bowel Sounds, Soft. negative: Tender, Organomegaly, Pulsatile Mass, Guarding Musculoskeletal: positive: Normal Inspection. negative: Decreased Range of Motion, Vertebral Tenderness Extremity: positive: Normal Capillary Refill, Normal Inspection, Normal Range of Motion. negative: Tender, Cyanosis Integumentary: positive: Normal Color, Dry, Warm. negative: Erythema, Rash, Bruising Neurologic: positive: real estate executive assistant II-XII NML intact (grossly), Fully Oriented, Alert, Normal Mood/Affect, Normal Response, Motor Strength 5/5 ED Treatment Course - LABORATORY CBC & Chemistry Diagram: 06/13/18 00:52 06/13/18 02:00 - RADIOLOGY Radiology Studies Ordered: Category Date Time Status CHEST CTA [CT] Stat CT Scan 06/13/18 00:38 Ordered Medical Decision Making - Medical Decision Making Pt who is one week post-op from RLL lobectomy shortly after wedge resection on same side, p/w worsened pain. Initial Vital Signs Temp Pulse Resp BP Pulse Ox 97.7 F 86 18 129/69 98 06/13/18 00:29 06/13/18 00:29 06/13/18 00:29 06/13/18 00:29 06/13/18 00:29 Exam: As noted in Physical Exam section. DDX IBNLT: PE, PTX, hemothorax, PNA, atelectasis, constipation, musculoskeletal pain, normal postoperative pain course with inadequate pain medication, etc. W/U ordered: Labs as noted below, EKG, CT to r/o PE TX ordered: Morphine 2 mg. EKG: Reviewed; results as noted in ECG Review section. CT: small to moderate right hydropneumothorax, no PE. Laboratory Tests 06/13/18 06/13/18 06/13/18 00:52 00:52 00:52 WBC 9.0 RBC 4.64 Hgb 13.1 Hct 39.5 MCV 85.2 MCH 28.2 MCHC 33.1 RDW 14.4 Plt Count 472 H D MPV 7.1 L D Absolute Neuts (auto) 6.2 Neutrophils % 68.2 Lymphocytes % 18.4 Monocytes % 10.1 Eosinophils % 2.6 D Basophils % 0.7 D Nucleated RBC % 0 PT with INR 11.70 INR 1.04 PTT (Actin FS) 29.3 Sodium Potassium Chloride Carbon Dioxide Anion Gap BUN Creatinine Creat Clearance w eGFR Random Glucose Calcium Phosphorus Magnesium Total Bilirubin AST ALT Alkaline Phosphatase Creatine Kinase 36 Troponin I < 0.02 B-Natriuretic Peptide 40.84 Total Protein Albumin Urine Color Urine Appearance Urine pH Ur Specific Shushan Urine Protein Urine Glucose (UA) Urine Ketones Urine Blood Urine Nitrite Urine Bilirubin Urine Urobilinogen Ur Leukocyte Esterase Acetone, Qual 06/13/18 06/13/18 06/13/18 00:52 01:40 02:00 WBC RBC Hgb Hct MCV MCH MCHC RDW Plt Count MPV Absolute Neuts (auto) Neutrophils % Lymphocytes % Monocytes % Eosinophils % Basophils % Nucleated RBC % PT with INR INR PTT (Actin FS) Sodium 135 L Potassium 4.1 Chloride 100 Carbon Dioxide 24 Anion Gap 11 BUN 9 Creatinine 0.7 Creat Clearance w eGFR > 60 Random Glucose 203 H Calcium 10.2 H Phosphorus 4.6 Magnesium 2.1 Total Bilirubin 0.3 AST 39 H ALT 97 H Alkaline Phosphatase 180 H D Creatine Kinase Troponin I B-Natriuretic Peptide Total Protein 7.2 Albumin 3.4 Urine Color Straw Urine Appearance Clear Urine pH 6.0 Ur Specific Shushan 1.030 Urine Protein Negative Urine Glucose (UA) 3+ H Urine Ketones 1+ H Urine Blood Negative Urine Nitrite Negative Urine Bilirubin Negative Urine Urobilinogen Negative Ur Leukocyte Esterase Negative Acetone, Qual Positive small 1+ H Reassessment: Patient with worsened pain after initial dose of morphine. Given another 2 mg IV push morphine. 06/13/18 05:07 Spoke with the [facility] PA Deepika Ramirez on Dr. Pyle's team, who took care of the patient postoperatively at [facility]. She states more than likely these CT changes of small-moderate hydropneumothorax are normal post-op changes. She recommend doing portable CXR now, then in another 3-4 hours, to make sure there is no progressive PTX. She notes Dr. Pyle's office opens at 9 am today and the patient should call at that time if discharged. She does not have visiting privileges at [facility]. She will attempt to get in contact with Dr. Pyle. 06/13/18 05:[address] Pyle. He notes the CT does not appear concerning at this time. He agrees with plan to discharge her with pain medications, states we can advise NSAID use too. He will see her in his clinic at [facility] tomorrow. Toradol and Tylenol ordered. 06/13/18 06:30 The Pt has gotten significant relief of symptoms with ED medications. Workup is not concerning for emergency-level pathology at this time. The Pt is appropriate for discharge with close outpatient follow up. They are comfortable with this plan and will follow up with Dr. Pyle. They will call Dr. Pyle's [facility] office [place] to make an appointment to come in tomorrow. Dr. Wu has sent E-Rx for Fentanyl patch for the patient. Specific return precautions are discussed and they will come back to the ER if necessary. 06/13/18 06:42 *DC/Admit/Observation/Transfer Diagnosis at time of Disposition: Hydropneumothorax, Postoperative pain Lung cancer Qualifiers: Laterality: right Lung location: lower lobe of lung Qualified Code(s): C34.31 - Malignant neoplasm of lower lobe, right bronchus or lung - Discharge Dispostion Disposition: HOME Condition at time of disposition: Stable Decision to Admit order: No - Prescriptions Prescriptions: FENTANYL 12mcg PATCH [DURAGESIC 12mcg PATCH -] 1 each TD Q72H #5 patch MDD 1 - Referrals Referrals: Shahida Abraham MD [Primary Care Provider] - - Patient Instructions Additional Instructions: You were seen in the ER for chest pain after a lung surgery. We did an exam, imaging studies, labs, and an electrocardiogram. We spoke with your surgeon Dr. Pyle who looked at your CT scan and was not concerned by the findings. We gave you medications in the ED which did help your symptoms. After our assessment, we do not believe you are having a medical emergency at this time, and we believe you are safe to go home. Please follow up with Dr. Pyle at his [facility] clinic tomorrow morning. Call their clinic this morning [place], tell them you were seen in the ER, and tell them you need a follow-up appointment for tomorrow. Please take Tylenol and Motrin for your pain (Dr. Pyle said this should be okay now). Please picking table worker your prescription for fentanyl patches, which should help with your pain. Follow the instructions on the medication label and talk to the pharmacist about proper use. If you have any new or worsening symptoms, especially worsened difficulty breathing, passing out, rapid heart palpitations, or other symptoms, please come back to the ER at any time (24 hours a day). If you are having severe or life threatening symptoms, or symptoms that make it unsafe to drive or have someone drive you, please call 911. - Post Discharge Activity
[2018-06-13] MEDS ORDERED: morphine CARPU-JECT 4 MG/1 ML DISP.SYRIN IVPUSH ONE ×2 (01:13→04:26)
[2018-06-13] MEDS ORDERED: MORPHINE SULFATE 2 MG/ML VIAL ONE (01:23)
[2018-06-13 01:26] LABS: INR 1.04 (0.82-1.09); PROTHROMBIN TIME (PATIENT) 11.7 SEC (9.7-13.0)
[2018-06-13 01:29] LABS: ACTIVATED PTT 29.3 SECONDS (25.2-36.5)
[2018-06-13 01:43] LABS: BASO % 0.7 % (0-2.0); EOS % 2.6 % (0-4.5); HEMATOCRIT 39.5 % (32.4-45.2); HEMOGLOBIN 13.1 GM/dL (10.7-15.3); LYMPH % 18.4 % (8-40); MCH 28.2 pg (25.7-33.7); MCHC 33.1 g/dl (32.0-36.0); MEAN CELL VOLUME 85.2 fl (80-96); MEAN PLT VOLUME 7.1 fl (7.5-11.1); MONO % 10.1 % (3.8-10.2); NEUT % 68.2 % (42.8-82.8); PLATELET COUNT 472 K/MM3 (134-434); RBC 4.64 M/mm3 (3.60-5.2); RDW 14.4 % (11.6-15.6)
[2018-06-13 01:59] LABS: N-TERMINAL BNP 40.84 pg/ml (5-125)
[2018-06-13 02:05] LABS: URINE APPEARANCE CLEAR; URINE BILIRUBIN NEGATIVE (<2.0 mg/dL); URINE COLOR STRAW; URINE GLUCOSE (UA) 3+ (NEGATIVE); URINE KETONE 1+ (NEGATIVE); URINE LEUK ESTERASE NEGATIVE (NEGATIVE); URINE NITRITE NEGATIVE (NEGATIVE); URINE PROTEIN NEGATIVE (NEGATIVE); URINE UROBILINOGEN NEGATIVE mg/dL (0.2-1.0)
[2018-06-13 02:38] LABS: ALBUMIN 3.4 g/dl (3.4-5.0); ANION GAP 11 (8-16); BILIRUBIN,TOTAL 0.3 mg/dL (0.2-1.0); BLOOD UREA NITROGEN 9 mg/dL (7-18); CALCIUM 10.2 mg/dL (8.5-10.1); CHLORIDE 100 mmol/L (98-107); CO2 24 mmol/L (21-32); CREATININE 0.7 mg/dL (0.55-1.02); GLUCOSE,RANDOM 203 mg/dL (74-106); MAGNESIUM 2.1 mg/dL (1.8-2.4); PHOSPHOROUS 4.6 mg/dL (2.5-4.9); POTASSIUM 4.1 mmol/L (3.5-5.1); SGOT/AST 39 U/L (15-37); SGPT/ALT 97 U/L (12-78); SODIUM 135 mmol/L (136-145)
[2018-06-13 02:39] LABS: ALK PHOS 180 U/L (45-117); TOT PROT 7.2 g/dl (6.4-8.2)
[2018-06-13] MEDS ORDERED: morphine SULFATE 4 MG/ML VIAL ONE (04:26)
[2018-06-13] MEDS ORDERED: ACETAMINOPHEN 500 MG TABLET (FP) PO ONE (06:07)
[2018-06-13] MEDS ORDERED: KETOROLAC TROMETHAMINE 30 MG/1 ML VIAL IM ONE (06:08)
[2018-06-13] MEDS ORDERED: ACETAMINOPHEN 325 MG TABLET (FP) ONE (06:09)
[2018-06-13] MEDS ORDERED: KETOROLAC TROMETHAMINE 30 MG/1 ML VIAL IVPUSH ONE (06:09)
[2018-06-13] MEDS ORDERED: KETOROLAC TROMETHAMINE 30 MG/1 ML VIAL ONE (06:10)
[2018-06-13 06:23] VITALS: BP 147/62; PULSE 78
--- NOTE | 2018-06-13 11:25 | EKG ---
Test Reason : Blood Pressure : / mmHG Vent. Rate : 078 BPM Atrial Rate : 078 BPM P-R Int : 120 ms QRS Dur : 086 ms QT Int : 378 ms P-R-T Axes : 045 027 037 degrees QTc Int : 430 ms NORMAL SINUS RHYTHM NORMAL ECG WHEN COMPARED WITH ECG OF 25-MAY-2018 20:56, NO SIGNIFICANT CHANGE WAS FOUND Confirmed by ELIZABETH BAILEY MD ([id number]) on 06/13/2018 11:25:29 AM Referred By: Confirmed By:ELIZABETH BAILEY MD
--- NOTE | 2018-06-15 07:51 | PDOC ---
Patient Follow-up (Call Back) - Post ED Follow - Up Condition at time of discharge: Stable Disposition at time of original discharge: HOME Reason for Call Back: Abnwl. Microbiology (Pt with 10,000-20,000 colony count on UC. Pending sensitivity. Pt did not have urinary symptoms on initial presentation.)
== END 2018-06-13 06:34 | disposition home or self-care (01) ==
LOC: JER 00:25
PROC: 3E033NZ Introduction of Analgesics, Hypnotics, Sedatives into Peripheral Vein, Percutaneous Approach (ICD-10-PCS; principal; 2018-06-13)
PROC: 3E0333Z Introduction of Anti-inflammatory into Peripheral Vein, Percutaneous Approach (ICD-10-PCS; 2018-06-13)
PROC: 3E033GC Introduction of Other Therapeutic Substance into Peripheral Vein, Percutaneous Approach (ICD-10-PCS; 2018-06-13)
PROC: 3E033NZ Introduction of Analgesics, Hypnotics, Sedatives into Peripheral Vein, Percutaneous Approach (ICD-10-PCS; 2018-06-13)
DX: G89.18 Other acute postprocedural pain (principal); J95.811 Postprocedural pneumothorax; C34.90 Malignant neoplasm of unspecified part of unspecified bronchus or lung; I10 Essential (primary) hypertension; E78.00 Pure hypercholesterolemia, unspecified; E11.9 Type 2 diabetes mellitus without complications; Z79.4 Long term (current) use of insulin; Z86.718 Personal history of other venous thrombosis and embolism; Z79.82 Long term (current) use of aspirin; Z90.2 Acquired absence of lung [part of]; Z88.8 Allergy status to other drugs, medicaments and biological substances
CPT/HCPCS: 36415; 71275-TC; 80053; 81003; 82009; 82550; 83735; 83880; 84100; 84484; 85025; 85610; 85730; 87086; 87186; 93005; 93010; 96374; 96375; 96376; 99283-25

== ENCOUNTER 2019-05-04 14:49 | Emergency (ER) | payer OTHER | END 2019-05-04 15:36 | disposition home or self-care (01) | LOC: JERFT 14:49 ==

== ENCOUNTER 2020-01-04 18:19 | Observation (INO) | payer OTHER ==
[2020-01-04 18:37] VITALS: BMI 25.4
[2020-01-04 20:08] LABS: ARTERIAL BLD GAS O2 SATURATION 52.8 % (95-98); ARTERIAL BLOOD GAS BASE EXCESS 3.2 meq/l (-2-2); ARTERIAL BLOOD GAS PCO2 50.6 mmHg (35-45); ARTERIAL BLOOD GAS pH 7.38 (7.35-7.45); BASO % 0.2 % (0-2.0); EOS % 0.6 % (0-4.5); HEMOGLOBIN 14.8 GM/dL (10.7-15.3); LYMPH % 20.1 % (8-40); MCH 28.7 pg (25.7-33.7); MCHC 33.6 g/dl (32.0-36.0); MEAN CELL VOLUME 85.4 fl (80-96); MEAN PLT VOLUME 7.9 fl (7.5-11.1); MONO % 7.8 % (3.8-10.2); NEUT % 71.3 % (42.8-82.8); PLATELET COUNT 249 K/MM3 (134-434); RBC 5.15 M/mm3 (3.60-5.2); RDW 14.3 % (11.6-15.6); WHITE BLOOD COUNT 10.2 K/mm3 (4.0-10.0)
[2020-01-04 20:11] LABS: ARTERIAL BLOOD GAS PO2 < 49 mmHg (80-100)
[2020-01-04 20:21] LABS: INR 0.93 (0.83-1.09)
[2020-01-04 20:23] LABS: ACTIVATED PTT 35.3 SECONDS (25.2-36.5)
[2020-01-04 20:35] LABS: ALBUMIN 3.8 g/dl (3.4-5.0); ALK PHOS 73 U/L (45-117); ANION GAP 5 MMOL/L (8-16); BILIRUBIN,TOTAL 0.3 mg/dL (0.2-1); BLOOD UREA NITROGEN 20.2 mg/dL (7-18); CALCIUM 9.7 mg/dL (8.5-10.1); CHLORIDE 105 mmol/L (98-107); CO2 30 mmol/L (21-32); CREATININE 0.8 mg/dL (0.55-1.3); GLUCOSE,RANDOM 139 mg/dL (74-106); SGOT/AST 8 U/L (15-37); SGPT/ALT 21 U/L (13-61); SODIUM 139 mmol/L (136-145); TOT PROT 6.6 g/dl (6.4-8.2)
--- NOTE | 2020-01-04 20:47 | PDOC ---
History of Present Illness - General Chief Complaint: Shortness of Breath Stated Complaint: Shortness of Breath Time Seen by Provider: 01/04/20 19:42 History Source: Patient Exam Limitations: No Limitations - History of Present Illness Initial Comments: 64F PMH IDDM, CAD, HTN, HLD, Sciatica, Cervical disk herniation, prior CVA ( deficit = inabilty to smile) BIBEMS for chest discomfort described as someone sitting on her with left arm pain/heaviness and shortness of breath that started around 6/7pm. Symptoms started to resolve over 10-15 minutes. Denies n/v , dysuria, diarrhea, f/c, headache. did have a similar episode of chest discofort 2 weeks ago eval'd by EMS but decided against ED eval at the time. Today, FD found elevated CO levels at home. Past History - Past Medical History Allergies/Adverse Reactions: Allergies Allergy/AdvReac Type Severity Reaction Status Date / Time hydromorphone [From Dilaudid] Allergy Severe Hives Verified 01/04/20 21:03 gabapentin [From Neurontin] Allergy Intermediate Verified 01/04/20 21:03 pregabalin [From Lyrica] Allergy Intermediate Verified 01/04/20 21:03 oyster extract Allergy Verified 01/04/20 21:03 OYSTER BASE Allergy Severe Hives Uncoded 01/04/20 21:03 Home Medications: Ambulatory Orders Ezetimibe [Zetia] 10 mg PO DAILY 10/22/16 Canagliflozin [Invokana] 300 mg PO DAILY 11/08/17 Rosuvastatin Calcium [Crestor] 10 mg PO HS 11/08/17 clonazePAM [Klonopin -] 0.5 mg PO BID PRN 06/13/18 Aspirin [ASA -] 81 mg PO DAILY 01/04/20 Anemia: Yes Cancer: Yes (Lung 2016) Cardiac Disorders: Yes (CAD/Atypical chest pain) COPD: No (bronchitis) Diabetes: Yes HTN: Yes Hypercholesterolemia: Yes - Surgical History Lung Surgery: (LUNG BIOPSY 03/2016) - Immunization History Immunization Up to Date: Yes - Psycho Social/Smoking Cessation Hx Smoking Status: Yes Smoking History: Never smoked Have you smoked in the past 12 months: No Number of Cigarettes Smoked Daily: 3 If you are a former smoker, when did you quit?: 2016 Information on smoking cessation initiated: No 'Breaking Loose' booklet given: 07/06/15 Hx Alcohol Use: No Drug/Substance Use Hx: No Substance Use Type: None Hx Substance Use Treatment: No Review of Systems - Review of Systems Able to Perform ROS?: Yes Comments:: CONSTITUTIONAL: Denies F / C HEENT: Denies headache, lightheadedness, dizziness RESP: endorsed SOB, CARD: endorsed chest pressure GI: Denies N / V / D, abdominal pain : Denies dysuria SKIN: Denies rashes NEURO: Endorsed left arm pain and heaviness *Physical Exam - Vital Signs Last Vital Signs Temp Pulse Resp BP Pulse Ox 98 F 76 16 117/62 99 01/04/20 18:19 01/04/20 18:19 01/04/20 18:19 01/04/20 18:19 01/04/20 18:19 - Physical Exam GEN: Well appearing, NAD, comfortable. AAOx3. HEENT: NC/AT, EOMI, PERRLA, CN II-XII intact except cannot smile. No facial asymmetry. Moist mucous membranes. Normal voice. Supple neck w/ FROM. CV: S1/S2, RRR, no m/r/g LUNG: CTAB, no wheezes, crackles, rales, rhonchi. GI: Soft, ndnt, +BS, no guarding, no rebound. No masses. MSK: 2+ distal pulses. No LE edema. No obvious deformities of all extremities. SKIN: Warm, dry, no rashes appreciated. PSYCH: Normal mood and affect. NEURO: Moving all extremities well. 5/5 strength UE LE b/l. symmetric sensation. Heart Score/ECG Review - History History: Moderately suspicious - Electrocardiogram EKG: Normal - Age Age: 45-65 - Risk Factors Risk Factors Heart Score: Yes Hx Hypercholesterolemia, Yes Hx Hypertension, Yes Hx Diabetes Based on the list above the patient has:: >/=3 risk factors or Hx atherosclerotic disease - Troponin Troponin: </= normal limit - Score Heart Score - Total: 4 ED Treatment Course - LABORATORY CBC & Chemistry Diagram: 01/05/20 07:09 01/05/20 07:09 - ADDITIONAL ORDERS Additional order review: Laboratory Results 01/04/20 01/04/20 01/04/20 19:50 19:50 19:50 PT with INR 11.00 INR 0.93 PTT (Actin FS) 35.3 Anticoagulation Therapy Puncture Site ABG pH ABG pCO2 at Pt Temp ABG pO2 at Pt Temp ABG HCO3 ABG O2 Sat (Measured) ABG O2 Content ABG Base Excess Torey Test Carboxyhemoglobin Methemoglobin O2 Delivery Device Oxygen Flow Rate Vent Mode Vent Rate Mechanical Rate Pressure Support Vent Sodium 139 Potassium 4.0 Chloride 105 Carbon Dioxide 30 Anion Gap 5 L BUN 20.2 H Creatinine 0.8 Est GFR (CKD-EPI)AfAm 90.94 Est GFR (CKD-EPI)NonAf 78.46 Random Glucose 139 H Calcium 9.7 Total Bilirubin 0.3 AST 8 L ALT 21 Alkaline Phosphatase 73 Creatine Kinase 60 Troponin I < 0.02 B-Natriuretic Peptide 16.1 Total Protein 6.6 Albumin 3.8 01/04/20 19:50 PT with INR INR PTT (Actin FS) Anticoagulation Therapy No Result Required. Puncture Site No Result Required. ABG pH 7.38 ABG pCO2 at Pt Temp 50.6 H ABG pO2 at Pt Temp < 49 L* ABG HCO3 29.0 H ABG O2 Sat (Measured) 52.8 L ABG O2 Content No Result Required. ABG Base Excess 3.2 H Torey Test No Result Required. Carboxyhemoglobin 1.0 Methemoglobin 1.1 O2 Delivery Device No Result Required. Oxygen Flow Rate No Result Required. Vent Mode No Result Required. Vent Rate No Result Required. Mechanical Rate No Result Required. Pressure Support Vent No Result Required. Sodium Potassium Chloride Carbon Dioxide Anion Gap BUN Creatinine Est GFR (CKD-EPI)AfAm Est GFR (CKD-EPI)NonAf Random Glucose Calcium Total Bilirubin AST ALT Alkaline Phosphatase Creatine Kinase Troponin I B-Natriuretic Peptide Total Protein Albumin 01/04/20 19:50 RBC 5.15 MCV 85.4 MCHC 33.6 RDW 14.3 MPV 7.9 D Neutrophils % 71.3 Lymphocytes % 20.1 Monocytes % 7.8 Eosinophils % 0.6 Basophils % 0.2 Medical Decision Making - Medical Decision Making 01/04/20 20:43 64F PMH IDDM, CAD, HTN, HLD, Sciatica, Cervical disk herniation, prior CVA ( deficit = inabilty to smile) BIBEMS for chest discomfort w/ left arm pain/ heaviness and SOB. Sx since resolved. Elevated CO levels at home. - CBC, CMP, Cardiac - EKG - CXR - ASA - Tele-obs EKG 1858 HR 78 NC 152 QRS 92 QTc 440 NSR 01/04/20 21:32 labs reviewed reassuring HEART = 4 - admit //ADMITTED Discharge - Discharge Information Problems reviewed: Yes Clinical Impression/Diagnosis: Chest pressure Condition: Stable - Admission Yes - Follow up/Referral - Patient Discharge Instructions - Post Discharge Activity
[2020-01-04] MEDS ORDERED: ASPIRIN 81 MG CHEWABLE TABLETS PO ONE (20:49)
[2020-01-04] MEDS ORDERED: ASPIRIN 81 MG CHEWABLE TABLETS ONE (21:06)
--- NOTE | 2020-01-04 22:26 | PDOC ---
Attending Attestation - Resident Resident Name: SuttonAlex - ED Attending Attestation I have performed the following: I have examined & evaluated the patient, The case was reviewed & discussed with the resident, I agree w/resident's findings & plan, Exceptions are as noted - HPI HPI: 01/04/20 23:56 See resident HPI - Physicial Exam PE: 01/04/20 23:56 Agree with documented exam - Medical Decision Making 01/05/20 00:00 64F with chest pressure at rest, radiating down LUE, EMS reports high environmental CO levels on scene ACS? 2/2 hyperCO f/u labs, ekg, cxr dispo: admit, high risk chest pain in high risk patient
[2020-01-04] MEDS ORDERED: ALPRAZolam 0.25 MG TABLET PO PRN (22:40)
[2020-01-04] MEDS ORDERED: clonazePAM 0.5 MG TABLET PO PRN (22:41)
--- NOTE | 2020-01-05 04:14 | HP ---
CHIEF COMPLAINT: chest pain with radiation to left arm and back associated with shortness breath PCP:Dr. Abraham HISTORY OF PRESENT ILLNESS: 64 year old female with history of lung cancer [facility] , hypertension, NIDDM, hyperlipidmia, anxiety and prior CVA who presents with left arm pain with radiation to her midsternm and back associated with shortness of breath. She reports symptoms lasted about 10-15 minutes and occurred at rest. She denied nausea, vomiting or diaphoresis.She reports she has a prior history of DVT in the past and not on anticoagulation. Currently she denies any symptoms of chest discomfort or shortness of breath. ER course was notable for: (1)normal troponin, EKG w/ no signs of ischemia (2) no evidence of tachycardia or hypoxia Recent Travel: no PAST MEDICAL HISTORY: hypertension hyperlipidemia lung cancer anxiety CVA PAST SURGICAL HISTORY: right lobectomy and left wedge resection Social History: Smoking:quit 3 years ago Alcohol:no Drugs: no Allergies hydromorphone [From Dilaudid] Allergy (Severe, Verified 01/04/20 21:03) Hives gabapentin [From Neurontin] Allergy (Intermediate, Verified 01/04/20 21:03) hair loss pregabalin [From Lyrica] Allergy (Intermediate, Verified 01/04/20 21:03) oyster extract Allergy (Verified 01/04/20 21:03) OYSTER BASE Allergy (Severe, Uncoded 01/04/20 21:03) Hives ANAPHYLAXIS HOME MEDICATIONS: Home Medications Medication Instructions Recorded Ezetimibe [Zetia] 10 mg PO DAILY 10/22/16 Canagliflozin [Invokana] 300 mg PO DAILY 11/08/17 Rosuvastatin Calcium [Crestor] 10 mg PO HS 11/08/17 clonazePAM [Klonopin -] 0.5 mg PO BID PRN 06/13/18 Aspirin [ASA -] 81 mg PO DAILY 01/04/20 REVIEW OF SYSTEMS CONSTITUTIONAL: Absent: fever, chills, diaphoresis, generalized weakness, malaise, loss of appetite, weight change HEENT: Absent: rhinorrhea, nasal congestion, throat pain, throat swelling, difficulty swallowing, mouth swelling, ear pain, eye pain, visual changes CARDIOVASCULAR: Absent: chest pain, syncope, palpitations, irregular heart rate, lightheadedness , peripheral edema RESPIRATORY: Absent: cough, shortness of breath, dyspnea with exertion, orthopnea, wheezing, stridor, hemoptysis GASTROINTESTINAL: Absent: abdominal pain, abdominal distension, nausea, vomiting, diarrhea, constipation, melena, hematochezia GENITOURINARY: Absent: dysuria, frequency, urgency, hesitancy, hematuria, flank pain, genital pain MUSCULOSKELETAL: Absent: myalgia, arthralgia, joint swelling, back pain, neck pain SKIN: Absent: rash, itching, pallor HEMATOLOGIC/IMMUNOLOGIC: Absent: easy bleeding, easy bruising, lymphadenopathy, frequent infections ENDOCRINE: Absent: unexplained weight gain, unexplained weight loss, heat intolerance, cold intolerance NEUROLOGIC: Absent: headache, focal weakness or paresthesias, dizziness, unsteady gait, seizure, mental status changes, bladder or bowel incontinence PSYCHIATRIC: Absent: anxiety, depression, suicidal or homicidal ideation, hallucinations. PHYSICAL EXAMINATION Vital Signs - 24 hr 01/04/20 01/04/20 01/04/20 18:19 21:41 23:59 Temperature 98 F 97.8 F Pulse Rate 76 82 Pulse Rate [ 82 Apical] Respiratory 16 19 18 Rate Blood Pressure 117/62 138/69 Blood Pressure 132/80 [Right Arm] O2 Sat by Pulse 99 98 Oximetry (%) 01/05/20 03:00 Temperature 98.2 F Pulse Rate 85 Pulse Rate [ Apical] Respiratory 18 Rate Blood Pressure 134/78 Blood Pressure [Right Arm] O2 Sat by Pulse Oximetry (%) GENERAL: awake, alert, and fully oriented, no acute distress HEAD: normal EYES: pupils equal, round and reactive to light, extraocular movements intact EARS, NOSE, THROAT: Ears normal, nares patent, oropharynx clear without exudates. Moist mucous membranes. NECK: normal range of motion, Lungs no crackles no accessory muscle use HEART: regular rate and rhythm normal S1 and S2 ABDOMEN: soft, nontender, not distended, normoactive bowel sounds MUSCULOSKELETAL: normal range of motion at all joints UPPER EXTREMITIES: 2+ pulses warm, well-perfused no cyanosis LOWER EXTREMITIES: 2+ pulses, warm, well-perfused no pitting edema NEUROLOGICAL: normal speech no facial grimace or droop moving upper and lower extremities PSYCHIATRIC: cooperative good eye contact SKIN: warm dry normal turgor no rashes or lesions noted normal capillary refill. Laboratory Results - last 24 hr 02/01/04/20 01/04/20 19:50 19:50 19:50 WBC 10.2 H RBC 5.15 Hgb 14.8 Hct 44.0 MCV 85.4 MCH 28.7 MCHC 33.6 RDW 14.3 Plt Count 249 D MPV 7.9 D Absolute Neuts (auto) 7.3 Neutrophils % 71.3 Lymphocytes % 20.1 Monocytes % 7.8 Eosinophils % 0.6 Basophils % 0.2 Nucleated RBC % 0 PT with INR 11.00 INR 0.93 PTT (Actin FS) 35.3 Anticoagulation Therapy No Result Required. Puncture Site No Result Required. ABG pH 7.38 ABG pCO2 at Pt Temp 50.6 H ABG pO2 at Pt Temp < 49 L* ABG HCO3 29.0 H ABG O2 Sat (Measured) 52.8 L ABG O2 Content No Result Required. ABG Base Excess 3.2 H Torey Test No Result Required. Carboxyhemoglobin 1.0 Methemoglobin 1.1 O2 Delivery Device No Result Required. Oxygen Flow Rate No Result Required. Vent Mode No Result Required. Vent Rate No Result Required. Mechanical Rate No Result Required. Pressure Support Vent No Result Required. Sodium Potassium Chloride Carbon Dioxide Anion Gap BUN Creatinine Est GFR (CKD-EPI)AfAm Est GFR (CKD-EPI)NonAf POC Glucometer Random Glucose Calcium Total Bilirubin AST ALT Alkaline Phosphatase Creatine Kinase Troponin I B-Natriuretic Peptide Total Protein Albumin 01/04/20 01/04/20 01/04/20 19:50 19:50 22:57 WBC RBC Hgb Hct MCV MCH MCHC RDW Plt Count MPV Absolute Neuts (auto) Neutrophils % Lymphocytes % Monocytes % Eosinophils % Basophils % Nucleated RBC % PT with INR INR PTT (Actin FS) Anticoagulation Therapy Puncture Site ABG pH ABG pCO2 at Pt Temp ABG pO2 at Pt Temp ABG HCO3 ABG O2 Sat (Measured) ABG O2 Content ABG Base Excess Torey Test Carboxyhemoglobin Methemoglobin O2 Delivery Device Oxygen Flow Rate Vent Mode Vent Rate Mechanical Rate Pressure Support Vent Sodium 139 Potassium 4.0 Chloride 105 Carbon Dioxide 30 Anion Gap 5 L BUN 20.2 H Creatinine 0.8 Est GFR (CKD-EPI)AfAm 90.94 Est GFR (CKD-EPI)NonAf 78.46 POC Glucometer 105 Random Glucose 139 H Calcium 9.7 Total Bilirubin 0.3 AST 8 L ALT 21 Alkaline Phosphatase 73 Creatine Kinase 60 Troponin I < 0.02 B-Natriuretic Peptide 16.1 Total Protein 6.6 Albumin 3.8 ASSESSMENT/PLAN: 64 year old female with history of lung cancer with [facility] , hypertension, NIDDM, hyperlipidmia, anxiety and prior CVA who presented with left arm pain with radiation to her midsternum and back associated with shortness of breath. she is being admitted to telemetry to exclude ACS/PE. 1. R/O Acute Coronary Syndrome Currently asymptomatic, euvolemic, BNP and troponinnormal, EKG w/no acute changes Check echocardiogram to exclude wall motion abnormalities, valvular disease and evaluate LVEF Continue with asa and statin Continue to trend troponins Cardiology consulted 2. Hypertension Controlled-on no meds 3. Hyperlipidemia Continue w/ statin therpay 4. NIDDM Hold Invokana, resume on dc home BGM with meals and at bedtime Novolog as per sliding scale check [id number] FEN no IV fluids monitor BMP daily low sodium ADA DVT Prophylaxsis lovenox 30 mg daily Visit type - Emergency Visit Emergency Visit: Yes ED Registration Date: 01/04/20 Care time: The patient presented to the Emergency Department on the above date and was hospitalized for further evaluation of their emergent condition. - New Patient This patient is new to me today: Yes Date on this admission: 01/05/20 - Critical Care Critical Care patient: No
[2020-01-05 07:47] LABS: HEMATOCRIT 45.9 % (32.4-45.2); HEMOGLOBIN 15.5 GM/dL (10.7-15.3); MCH 28.7 pg (25.7-33.7); MCHC 33.7 g/dl (32.0-36.0); MEAN CELL VOLUME 84.9 fl (80-96); MEAN PLT VOLUME 8.1 fl (7.5-11.1); PLATELET COUNT 268 K/MM3 (134-434); RDW 14.4 % (11.6-15.6); WHITE BLOOD COUNT 8.1 K/mm3 (4.0-10.0)
[2020-01-05] MEDS ORDERED: MORPHINE SULFATE 2 MG/ML VIAL IVPUSH ONE (07:47)
[2020-01-05] MEDS ORDERED: MORPHINE SULFATE 2 MG/ML VIAL ONE (07:52)
[2020-01-05] MEDS ORDERED: KETOROLAC TROMETHAMINE 30 MG/1 ML VIAL IM ONE (08:01)
[2020-01-05] MEDS ORDERED: KETOROLAC TROMETHAMINE 30 MG/1 ML VIAL ONE (08:07)
[2020-01-05 08:14] LABS: ANION GAP 5 MMOL/L (8-16); BLOOD UREA NITROGEN 19.1 mg/dL (7-18); CALCIUM 9.9 mg/dL (8.5-10.1); CHLORIDE 107 mmol/L (98-107); CHOLESTEROL 116 mg/dL (50-200); CO2 27 mmol/L (21-32); CREATININE 0.7 mg/dL (0.55-1.3); GLUCOSE,RANDOM 112 mg/dL (74-106); HDL CHOLESTEROL 41 mg/dL (40-60); LDL CHOLESTEROL (ONLY SJRH) 55 mg/dL (5-100); MAGNESIUM 2.3 mg/dL (1.8-2.4); N-TERMINAL BNP 12.8 pg/ml (5-125); POTASSIUM 4.4 mmol/L (3.5-5.1); SODIUM 139 mmol/L (136-145); TRIGLYCERIDES 111 mg/dL (0-150)
--- NOTE | 2020-01-05 09:29 | PN ---
Progress Note, Physician History of Present Illness: 64 year old female with history of lung cancer with right lobectomy and left wedge resection at [facility] , hypertension, NIDDM, hyperlipidmia, anxiety and prior CVA who presents with left arm pain with radiation to her midsternm and back associated with shortness of breath. She reports symptoms lasted about 10-15 minutes and occurred at rest. She denied nausea, vomiting or diaphoresis.She reports she has a prior history of DVT in the past and not on anticoagulation. Currently she denies any symptoms of chest discomfort or shortness of breath. - Current Medication List Current Medications: Active Medications Aspirin (Asa -) 81 mg PO DAILY JASON Clonazepam (Klonopin -) 0.5 mg PO BID PRN PRN Reason: ANXIETY Ezetimibe (Zetia -) 10 mg PO DAILY JASON Enoxaparin Sodium (Lovenox -) 40 mg SQ DAILY JASON Rosuvastatin Calcium (Crestor -) 10 mg PO HS JASON - Objective Vital Signs: Vital Signs Temperature 98.4 F 01/05/20 07:27 Pulse Rate 88 01/05/20 07:27 Respiratory Rate 18 01/05/20 07:27 Blood Pressure 135/82 01/05/20 07:27 O2 Sat by Pulse Oximetry (%) 98 01/05/20 07:27 Cardiovascular: Yes: Regular Rate and Rhythm Respiratory: Yes: Regular, CTA Bilaterally Gastrointestinal: Yes: Normal Bowel Sounds, Soft. No: Tenderness Labs: CBC, BMP 01/05/20 07:09 01/05/20 07:09 INR, PTT INR 0.93 (0.83-1.09) 01/04/20 19:50 Problem List - Problems (1) Chest pain Assessment/Plan: R/O PE CTA FOLLOW UP CE CARDIO STRESS TEST IF CTA NEG Code(s): R07.9 - CHEST PAIN, UNSPECIFIED Qualifiers: Chest pain type: unspecified Qualified Code(s): R07.9 - Chest pain, unspecified (2) Lung cancer Assessment/Plan: S/P LOBECTOMY Code(s): C34.90 - MALIGNANT NEOPLASM OF UNSP PART OF UNSP BRONCHUS OR LUNG Qualifiers: Laterality: right Lung location: lower lobe of lung Qualified Code(s): C34.31 - Malignant neoplasm of lower lobe, right bronchus or lung (3) Type 2 diabetes mellitus Assessment/Plan: BGM ENDO Code(s): E11.9 - TYPE 2 DIABETES MELLITUS WITHOUT COMPLICATIONS
[2020-01-05] MEDS: ASPIRIN 81 MG CHEWABLE TABLETS PO SCH (09:40)
[2020-01-05] MEDS: ENOXAPARIN NA (PORCINE) 40 MG/0.4 ML DISP.SYRIN SQ SCH (09:40)
[2020-01-05] MEDS: EZETIMIBE 10 MG TABLET (FP) PO SCH (09:40)
[2020-01-05 10:01] LABS: URINE APPEARANCE CLEAR; URINE BILIRUBIN NEGATIVE (NEGATIVE); URINE COLOR YELLOW; URINE GLUCOSE (UA) 3+ (NEGATIVE); URINE KETONE 2+ (NEGATIVE); URINE LEUK ESTERASE NEGATIVE (NEGATIVE); URINE NITRITE NEGATIVE (NEGATIVE); URINE PROTEIN NEGATIVE (NEGATIVE)
--- NOTE | 2020-01-05 10:26 | ECHO ---
Name: LEAK, JOSE DE JESUS Exam:Adult Echocardiogram Study Date: 01/05/2020 08:20 AM Age: 64 yrs Reason For Study: Chest pain Height: 64 in Weight: 148 lb BSA: 1.7 m2 MMode/2D Measurements & Calculations IVSd: 0.81 cm Ao root diam: 2.8 cm LVIDd: 4.2 cm LA dimension: 3.3 cm LVIDs: 2.8 cm LVPWd: 0.90 cm LVPWs: 1.5 cm EDV(Teich): 78.3 ml ESV(Teich): 30.6 ml LAV (MOD-bp): 36.4 ml RV S Jose: 10.0 cm/sec Doppler Measurements & Calculations MV E max jose: 57.2 cm/sec Ao V2 max: 127.0 cm/sec MV A max jose: 75.2 cm/sec Ao max P.5 mmHg MV E/A: 0.76 MV dec time: 0.15 sec LV V1 max P.3 mmHg TR max jose: 293.2 cm/sec LV V1 max: 75.7 cm/sec TR max P.4 mmHg PA V2 max: 84.8 cm/sec Med Peak E' Jose: 7.2 cm/sec PA max P.9 mmHg Med E/e': 8.0 Lat Peak E' Jose: 5.5 cm/sec Lat E/e': 10.3 Left Ventricle Left ventricular systolic function is normal. Ejection Fraction = 60-65%. The transmitral spectral Do ppler flow pattern is suggestive of impaired LV relaxation. Right Ventricle The right ventricle is normal in size and function. Atria Normal left and right atrial size and function. Mitral Valve The mitral valve is normal in structure and function. There is no mitral valve stenosis. There is mil d mitral regurgitation. Tricuspid Valve The tricuspid valve is normal in structure and function. There is mild tricuspid regurgitation. Right ventricular systolic pressure is normal. Aortic Valve The aortic valve opens well. No hemodynamically significant valvular aortic stenosis. No aortic regur gitation is present. Pulmonic Valve The pulmonic valve is not well seen, but is grossly normal. There is no pulmonic valvular stenosis. Great Vessels The aortic root is normal size. Pericardium/Pleura There is no pericardial effusion. Interpretation Summary Left ventricular systolic function is normal. Ejection Fraction = 60-65%. The transmitral spectral Doppler flow pattern is suggestive of impaired LV relaxation. The right ventricle is normal in size and function. There is mild mitral regurgitation. There is mild tricuspid regurgitation. Right ventricular systolic pressure is normal. There is no pericardial effusion. MD Jefferson *Dory 01/05/2020 10:26 AM
--- NOTE | 2020-01-05 15:11 | EKG ---
Test Reason : Blood Pressure : / mmHG Vent. Rate : 078 BPM Atrial Rate : 078 BPM P-R Int : 152 ms QRS Dur : 092 ms QT Int : 386 ms P-R-T Axes : 068 047 064 degrees QTc Int : 440 ms NORMAL SINUS RHYTHM EARLY REPOLARIZATION NONSPECIFIC ST ABNORMALITY Confirmed by AYESHA JORDAN MD ([id number]) on 01/05/2020 3:11:13 PM Referred By: Confirmed By:AYESHA JORDAN MD
--- NOTE | 2020-01-05 16:10 | CON.CARD ---
Consult Consult Specialty:: Cardiology Reason for Consultation:: Chest pain - History of Present Illness Chief Complaint: Chest pain episode History of Present Illness: This is a 64 year old female with a PMH of lung Ca s/p a right lobectomy and left wedge [place] [facility], HTN, NIDDM, HLD, anxiety, prior DVT, and a prior CVA. She presents now with a 1o minute episode of chest pain that started mid- sterum and radiated down her left arm and to her back. Troponins are negative Echocardiogram 01/05/2020 Normal LV function EF 60-65% Normal RV function Mild MR Mild TR RVSP Exercise Nuclear Stress Test 01/05/2020 7 minutes of Rod Normal perfusion of myocardium EF 64% - Past Medical History Cardio/Vascular: Yes: CAD, HTN, Hyperlipdemia Pulmonary: Yes: COPD Endocrine: Yes: Diabetes Mellitus - Past Surgical History Past Surgical History: Yes: None - Alcohol/Substance Use Hx Alcohol Use: No History of Substance Use: reports: None - Smoking History Smoking history: Never smoked Have you smoked in the past 12 months: No Aproximately how many cigarettes per day: 3 If you are a former smoker, when did you quit?: 2016 - Social History ADL: Independent History of Recent Travel: No Home Medications - Allergies Allergies/Adverse Reactions: Allergies Allergy/AdvReac Type Severity Reaction Status Date / Time hydromorphone [From Dilaudid] Allergy Severe Hives Verified 01/04/20 21:03 gabapentin [From Neurontin] Allergy Intermediate Verified 01/04/20 21:03 pregabalin [From Lyrica] Allergy Intermediate Verified 01/04/20 21:03 oyster extract Allergy Verified 01/04/20 21:03 OYSTER BASE Allergy Severe Hives Uncoded 01/04/20 21:03 - Home Medications Home Medications: Ambulatory Orders Ezetimibe [Zetia] 10 mg PO DAILY 10/22/16 Canagliflozin [Invokana] 300 mg PO DAILY 11/08/17 Rosuvastatin Calcium [Crestor] 10 mg PO HS 11/08/17 clonazePAM [Klonopin -] 0.5 mg PO BID PRN 06/13/18 Aspirin [ASA -] 81 mg PO DAILY 01/04/20 Vital Signs: Vital Signs Temperature 98.2 F 01/05/20 15:00 Pulse Rate 96 H 01/05/20 15:00 Respiratory Rate 18 01/05/20 15:00 Blood Pressure 115/63 01/05/20 15:00 O2 Sat by Pulse Oximetry (%) 97 01/05/20 15:00 Constitutional: Yes: Well Nourished Eyes: Yes: WNL HENT: Yes: WNL Neck: Yes: WNL Respiratory: Yes: CTA Bilaterally Gastrointestinal: Yes: Soft Cardiovascular: Yes: Regular Rate and Rhythm Heart Sounds: Yes: S1, S2 Extremities: Yes: WNL Edema: No Neurological: Yes: Alert, Oriented - Other Data Labs, Other Data: CBC, BMP 01/05/20 07:09 01/05/20 07:09 INR, PTT INR 0.93 (0.83-1.09) 01/04/20 19:50 Troponin, BNP 01/04/20 01/04/20 01/05/20 19:50 19:50 04:20 Troponin I < 0.02 < 0.02 B-Natriuretic Peptide 16.1 01/05/20 07:09 Troponin I < 0.02 B-Natriuretic Peptide 12.8 Troponin, BNP 01/04/20 01/04/20 01/05/20 19:50 19:50 04:20 Troponin I < 0.02 < 0.02 B-Natriuretic Peptide 16.1 01/05/20 07:09 Troponin I < 0.02 B-Natriuretic Peptide 12.8 Assessment/Plan 64 year old female with a PMH of lung Ca s/p a right lobectomy and left wedge resection at [facility] [place], HTN, NIDDM, HLD, anxiety, prior DVT, and a prior CVA. She presents now with a 1o minute episode of chest pain that started mid-sterum and radiated down her left arm and to her back. Troponins are negative Echocardiogram 01/05/2020 Normal LV function EF 60-65% Normal RV function Mild MR Mild TR RVSP Exercise Nuclear Stress Test 01/05/2020 7 minutes of Rod Normal perfusion of myocardium EF 64% Given the negative troponins and the above testing, no further cardiac evaluation is needed at this time.
[2020-01-05] MEDS ORDERED: traMADol HCL 50 MG TABLET ONE (20:24)
[2020-01-05] MEDS: traMADol HCL 50 MG TABLET PO PRN (20:28)
[2020-01-05] MEDS ORDERED: ROSUVASTATIN CA 10 MG TABLET (FP) PO SCH (22:00)
--- NOTE | 2020-01-06 01:37 | CONSULT ---
Consult Consult Specialty:: Endocrine Referred by:: dr.Iyad Abraham Reason for Consultation:: DmT2 - History of Present Illness Chief Complaint: high sugars nausea and poor appetite History of Present Illness: 64 year old female with history of DMT2,hld,htn,cva, lung cancer with right lobectomy and left wedge resectioin at [facility] , who presented with left arm pain with radiation to sternum associated with shortness of breath. She denied nausea, vomiting or diaphoresis.She has had elevated blood sugars,she takes glp 1 which has decreased her sugars and apetite,she denies hypoglycemia - Past Medical History Cardio/Vascular: Yes: CAD, HTN, Hyperlipdemia Pulmonary: Yes: COPD Endocrine: Yes: Diabetes Mellitus - Past Surgical History Past Surgical History: Yes: None - Alcohol/Substance Use Hx Alcohol Use: No History of Substance Use: reports: None - Smoking History Smoking history: Never smoked Have you smoked in the past 12 months: No Aproximately how many cigarettes per day: 3 If you are a former smoker, when did you quit?: 2016 - Social History ADL: Independent History of Recent Travel: No Home Medications - Allergies Allergies/Adverse Reactions: Allergies Allergy/AdvReac Type Severity Reaction Status Date / Time hydromorphone [From Dilaudid] Allergy Severe Hives Verified 01/04/20 21:03 gabapentin [From Neurontin] Allergy Intermediate Verified 01/04/20 21:03 pregabalin [From Lyrica] Allergy Intermediate Verified 01/04/20 21:03 oyster extract Allergy Verified 01/04/20 21:03 OYSTER BASE Allergy Severe Hives Uncoded 01/04/20 21:03 - Home Medications Home Medications: Ambulatory Orders Ezetimibe [Zetia] 10 mg PO DAILY 10/22/16 Canagliflozin [Invokana] 300 mg PO DAILY 11/08/17 Rosuvastatin Calcium [Crestor] 10 mg PO HS 11/08/17 clonazePAM [Klonopin -] 0.5 mg PO BID PRN 06/13/18 Aspirin [ASA -] 81 mg PO DAILY 01/04/20 Review of Systems - Review of Systems Constitutional: reports: Loss of Appetite, Weakness Eyes: reports: No Symptoms HENT: reports: No Symptoms Neck: reports: No Symptoms Cardiovascular: reports: Shortness of Breath Respiratory: reports: Exercise Intolerance, SOB on Exertion Gastrointestinal: reports: Bloating, Constipation Genitourinary: reports: No Symptoms Breasts: reports: No Symptoms Reported Musculoskeletal: reports: Muscle Pain, Muscle Cramps Integumentary: reports: No Symptoms Neurological: reports: Numbness, Weakness Endocrine: reports: Unexplained Weight Loss Physical Exam Vital Signs: Vital Signs Temperature 98.2 F 01/05/20 21:49 Pulse Rate 80 01/05/20 21:49 Respiratory Rate 20 01/05/20 21:49 Blood Pressure 117/60 01/05/20 21:49 O2 Sat by Pulse Oximetry (%) 97 01/05/20 15:00 Constitutional: Yes: Anxious Eyes: Yes: EOM Intact HENT: Yes: Normocephalic Neck: Yes: Trachea Midline Cardiovascular: Yes: Regular Rate and Rhythm Respiratory: Yes: CTA Bilaterally Gastrointestinal: Yes: Normal Bowel Sounds ...Rectal Exam: Yes: Deferred Renal/: Yes: WNL Breast(s): Yes: WNL Musculoskeletal: Yes: WNL Extremities: Yes: WNL Edema: No Neurological: Yes: Alert, Oriented Labs: CBC, BMP 01/05/20 07:09 01/05/20 07:09 Problem List - Problems (1) Type 2 diabetes mellitus with diabetic neuropathic arthropathy Problems reviewed: Yes Code(s): E11.610 - TYPE 2 DIABETES MELLITUS W DIABETIC NEUROPATHIC ARTHROPATHY (2) Anxiety and depression Problems reviewed: Yes Code(s): F41.9 - ANXIETY DISORDER, UNSPECIFIED; F32.9 - MAJOR DEPRESSIVE DISORDER, SINGLE EPISODE, UNSPECIFIED (3) Cough Problems reviewed: Yes Code(s): R05 - COUGH (4) DVT prophylaxis Problems reviewed: Yes Code(s): UTV3655 - (5) Dark stools Problems reviewed: Yes Code(s): R19.5 - OTHER FECAL ABNORMALITIES (6) Dyspnea Problems reviewed: Yes Code(s): R06.00 - DYSPNEA, UNSPECIFIED (7) Hyperlipidemia Problems reviewed: Yes Code(s): E78.5 - HYPERLIPIDEMIA, UNSPECIFIED (8) Type 2 diabetes mellitus with diabetic autonomic (poly)neuropathy Code(s): E11.43 - TYPE 2 DIABETES W DIABETIC AUTONOMIC (POLY)NEUROPATHY Assessment/Plan DMT2,gastroparesis DMneuropathy htn hld ashd, Abnormal Lab Results 01/05/20 01/05/20 01/05/20 07:09 07:09 07:09 RBC 5.40 H Hgb 15.5 H Hct 45.9 H Anion Gap 5 L BUN 19.1 H Random Glucose 112 H Hemoglobin A1c % 9.3 H Ur Specific Clare Urine Glucose (UA) Urine Ketones 01/05/20 09:30 RBC Hgb Hct Anion Gap BUN Random Glucose Hemoglobin A1c % Ur Specific Clare 1.038 H Urine Glucose (UA) 3+ H Urine Ketones 2+ H Laboratory Results - last 24 hr 01/05/20 01/05/20 01/05/20 04:20 04:20 06:05 WBC RBC Hgb Hct MCV MCH MCHC RDW Plt Count MPV D-Dimer < 215 Sodium Potassium Chloride Carbon Dioxide Anion Gap BUN Creatinine Est GFR (CKD-EPI)AfAm Est GFR (CKD-EPI)NonAf POC Glucometer 115 Random Glucose Hemoglobin A1c % Calcium Magnesium Creatine Kinase Troponin I < 0.02 B-Natriuretic Peptide Triglycerides Cholesterol Total LDL Cholesterol HDL Cholesterol Urine Color Urine Appearance Urine pH Ur Specific Clare Urine Protein Urine Glucose (UA) Urine Ketones Urine Blood Urine Nitrite Urine Bilirubin Urine Urobilinogen Ur Leukocyte Esterase 01/05/20 01/05/20 01/05/20 07:09 07:09 07:09 WBC 8.1 RBC 5.40 H Hgb 15.5 H Hct 45.9 H MCV 84.9 MCH 28.7 MCHC 33.7 RDW 14.4 Plt Count 268 MPV 8.1 D-Dimer Sodium 139 Potassium 4.4 Chloride 107 Carbon Dioxide 27 Anion Gap 5 L BUN 19.1 H Creatinine 0.7 Est GFR (CKD-EPI)AfAm 106.87 Est GFR (CKD-EPI)NonAf 92.21 POC Glucometer Random Glucose 112 H Hemoglobin A1c % 9.3 H Calcium 9.9 Magnesium 2.3 Creatine Kinase 58 Troponin I < 0.02 B-Natriuretic Peptide 12.8 Triglycerides 111 Cholesterol 116 Total LDL Cholesterol 55 HDL Cholesterol 41 Urine Color Urine Appearance Urine pH Ur Specific Clare Urine Protein Urine Glucose (UA) Urine Ketones Urine Blood Urine Nitrite Urine Bilirubin Urine Urobilinogen Ur Leukocyte Esterase 01/05/20 01/05/20 09:30 16:12 WBC RBC Hgb Hct MCV MCH MCHC RDW Plt Count MPV D-Dimer Sodium Potassium Chloride Carbon Dioxide Anion Gap BUN Creatinine Est GFR (CKD-EPI)AfAm Est GFR (CKD-EPI)NonAf POC Glucometer 203 Random Glucose Hemoglobin A1c % Calcium Magnesium Creatine Kinase Troponin I B-Natriuretic Peptide Triglycerides Cholesterol Total LDL Cholesterol HDL Cholesterol Urine Color Yellow Urine Appearance Clear Urine pH 5.0 Ur Specific Clare 1.038 H Urine Protein Negative Urine Glucose (UA) 3+ H Urine Ketones 2+ H Urine Blood Negative Urine Nitrite Negative Urine Bilirubin Negative Urine Urobilinogen 1.0 Ur Leukocyte Esterase Negative plan: bgm qid novolog scale levemir dose titrate 15 units bid diet 1800cal ada metformin 500mg bid
[2020-01-06] MEDS ORDERED: traMADol HCL 50 MG TABLET ONE (05:35)
[2020-01-06] MEDS: traMADol HCL 50 MG TABLET PO PRN (05:43)
[2020-01-06 06:21] VITALS: BP 124/72; PULSE 73; TEMP 98.4
[2020-01-06] MEDS ORDERED: metFORMIN HCL 500 MG TABLET (FP) PO SCH (07:00)
[2020-01-06] MEDS ORDERED: INSULIN (LEVEMIR) 100 UNITS/ML UNITS SQ SCH (10:00)
--- NOTE | 2020-01-06 10:03 | DS ---
Physical Examination Vital Signs: Vital Signs Temperature 98.4 F 01/06/20 06:00 Pulse Rate 73 01/06/20 06:00 Respiratory Rate 20 01/06/20 06:00 Blood Pressure 124/72 01/06/20 06:00 O2 Sat by Pulse Oximetry (%) 97 01/05/20 15:00 Cardiovascular: Yes: Regular Rate and Rhythm Respiratory: Yes: Regular, CTA Bilaterally Gastrointestinal: Yes: Normal Bowel Sounds, Soft Labs: CBC, BMP 01/05/20 07:09 01/05/20 07:09 Discharge Summary Problems reviewed: Yes Reason For Visit: CHEST PAIN Current Active Problems Chest pressure (Acute) Type 2 diabetes mellitus with diabetic autonomic (poly)neuropathy (Acute) Type 2 diabetes mellitus with diabetic neuropathic arthropathy (Acute) Health Concerns: - Problems (1) Chest pain Assessment/Plan: R/O PE CTA FOLLOW UP CE CARDIO STRESS TEST Negative for Ischemia CTA NEG for PE Code(s): R07.9 - CHEST PAIN, UNSPECIFIED Qualifiers: Chest pain type: unspecified Qualified Code(s): R07.9 - Chest pain, unspecified (2) Lung cancer Assessment/Plan: S/P LOBECTOMY Code(s): C34.90 - MALIGNANT NEOPLASM OF UNSP PART OF UNSP BRONCHUS OR LUNG Qualifiers: Laterality: right Lung location: lower lobe of lung Qualified Code(s): C34.31 - Malignant neoplasm of lower lobe, right bronchus or lung (3) Type 2 diabetes mellitus Assessment/Plan: [facility] Code(s): E11.9 - TYPE 2 DIABETES MELLITUS WITHOUT COMPLICATIONS dc home today follow up in office Condition: Stable - Instructions Referrals: Shahida Abraham MD [Primary Care Provider] - 1 Week Disposition: HOME - Home Medications Comprehensive Discharge Medication List: Ambulatory Orders Ezetimibe [Zetia] 10 mg PO DAILY 10/22/16 Rosuvastatin Calcium [Crestor] 10 mg PO HS 11/08/17 clonazePAM [Klonopin -] 0.5 mg PO BID PRN 06/13/18 Aspirin [ASA -] 81 mg PO DAILY 01/04/20 Insulin (Levemir) [Levemir Vial] 15 units SQ BID #5 pack 01/06/20 traMADol HCL [Ultram -] 50 mg PO Q6H PRN #15 tablet MDD 3 01/06/20
[2020-01-06] MEDS ORDERED: ASPIRIN 81 MG CHEWABLE TABLETS ONE (10:22)
[2020-01-06] MEDS: ASPIRIN 81 MG CHEWABLE TABLETS PO SCH (10:40)
[2020-01-06] MEDS: ENOXAPARIN NA (PORCINE) 40 MG/0.4 ML DISP.SYRIN SQ SCH (10:40)
[2020-01-06] MEDS: EZETIMIBE 10 MG TABLET (FP) PO SCH (10:40)
== END 2020-01-06 11:13 | disposition home or self-care (01) ==
LOC: JER 18:19 → JERBED 21:50
PROVIDERS: ADMIT Family Medicine; ATTEND Family Medicine
PROC: 3E0333Z Introduction of Anti-inflammatory into Peripheral Vein, Percutaneous Approach (ICD-10-PCS; principal; 2020-01-04)
PROC: 3E013VG Introduction of Insulin into Subcutaneous Tissue, Percutaneous Approach (ICD-10-PCS; 2020-01-04)
PROC: 3E013GC Introduction of Other Therapeutic Substance into Subcutaneous Tissue, Percutaneous Approach (ICD-10-PCS; 2020-01-04)
DX: R07.89 Other chest pain (principal); I10 Essential (primary) hypertension; E78.5 Hyperlipidemia, unspecified; E11.610 Type 2 diabetes mellitus with diabetic neuropathic arthropathy; E11.43 Type 2 diabetes mellitus with diabetic autonomic (poly)neuropathy; I25.10 Atherosclerotic heart disease of native coronary artery without angina pectoris; M50.13 Cervical disc disorder with radiculopathy, cervicothoracic region; M54.30 Sciatica, unspecified side; I69.398 Other sequelae of cerebral infarction; Z85.118 Personal history of other malignant neoplasm of bronchus and lung; Z79.82 Long term (current) use of aspirin; Z79.4 Long term (current) use of insulin; Z88.8 Allergy status to other drugs, medicaments and biological substances; Z91.013 Allergy to seafood; Z90.2 Acquired absence of lung [part of]; F41.9 Anxiety disorder, unspecified; F32.9 Major depressive disorder, single episode, unspecified; R06.00 Dyspnea, unspecified; R19.5 Other fecal abnormalities; Z29.8 Encounter for other specified prophylactic measures; R05 Cough
CPT/HCPCS: 36415; 36600; 71045-TC-FY; 71275-TC; 78452-TC; 80048; 80053; 80061; 81003; 82375; 82550; 82803; 82962; 83036; 83050; 83721; 83735; 83880; 84484; 85025; 85027; 85379; 85610; 85730; 93005; 93010; 93017; 93306-TC; 93970-TC; 96372; 96374; 99285-25; A9502; G0378; Q9967

== ENCOUNTER 2020-07-28 14:06 | Inpatient (IN) | payer OTHER ==
--- NOTE | 2020-07-28 14:41 | PDOC ---
History of Present Illness - General Chief Complaint: Chest Pain Stated Complaint: CHEST PAIN Time Seen by Provider: 07/28/20 14:40 - History of Present Illness Initial Comments: Pt is a 64yo F with PMH DM, HTN, HLD, CAD, sciatica, cervical disk herniation, fibromyalgia, NSCLC s/p RLL resection, +Covid in January, who presents with chest pain x1 day. Reports substernal CP that began at 12pm today, described as intermittent, sharp, lasting for a few seconds, occurring at rest, 6/10 in intensity. Denies any relieving or aggravating factors. Reports associated palpitations (fast HR, "shaking" in chest) and SOB. Reports most recent episode as pressure-sensation with radiation to L chest wall and arm. States that she took 1 81mg ASA this am (as per her usual) and was given 324 ASA in ambulance. Currently denies pain/SOB/palpitations. Reports history of prior DVT, but unable to specify location; denies hx of current malignancy, surgery, immobilization, hormone use, hemoptysis. PCP: Leigh PMH: see above PSHx: see above Meds: see chart Social: denies MIKAYLA Review of Systems CONSTITUTIONAL:denies fever, chills, diaphoresis, generalized weakness, malaise, loss of appetite HEENT:denies rhinorrhea, nasal congestion, sore throat, visual changes CARDIOVASCULAR:reports chest pain, palpitations; denies lightheadedness, peripheral edema RESPIRATORY:reports cough, shortness of breath GASTROINTESTINAL: denies abdominal pain, nausea, vomiting, diarrhea, constipation, melena, hematochezia GENITOURINARY:denies dysuria, frequency, urgency, hematuria MUSCULOSKELETAL:reports myalgia HEMATOLOGIC/IMMUNOLOGIC:denies easy bleeding, easy bruising ENDOCRINE: denies unexplained weight gain, unexplained weight loss NEUROLOGIC:reports chronic headache; denies loss of consciousness, unsteady gait, mental status changes, bladder or bowel incontinence SKIN:denies rash, itching, pallor PSYCHIATRIC:reports anxiety Physical Exam General: awake, alert, fully oriented, in no acute distress, well developed, well nourished Head: normocephalic, atraumatic Eyes: PERRL, anicteric sclera, conjunctiva clear ENT: hearing grossly normal, oropharynx clear without exudates, no nasal congestion, moist mucous membranes Neck: supple, normal ROM, no LAD, JVD or masses Lung: equal breath sounds b/l, CTA b/l, no crackles, wheezes Heart: RRR, normal S1, S2, no murmurs appreciated, no TTP of chest wall Abdomen: soft, non tender, normoactive bowel sounds, no guarding, rebound, masses Extremities: no edema, no erythema or tenderness, radial/DP/PT pulses 2+ and symmetric Neuro: CN2-12 grossly intact, moves all extremities, normal speech, sensation intact Skin: warm, dry, no rashes or lesions noted [facility] Pt is a 64yo F with PMH DM, HTN, HLD, CAD, sciatica, cervical disk herniation, fibromyalgia, NSCLC s/p RLL resection, +Covid in January, anxiety who presents with chest pain x1 day. DDx including but not limited to: ACS, PE, MSK pain Workup: labs, cxr, ekg Scores - HEART score - 3 EKG: normal sinus rhythm, HR 79bpm, AL 152ms, QRS 84ms, QTc 424ms, unchanged from previous 03/2020 CXR - chronic changes, elevated right hemidiaphragm with chronic scarring or atelectasis at the right base and in the left midlung field. The mediastinum is not widened. An acute process is not seen. The bones and soft tissues are intact. unchanged from 03/2020 labs: no leukocytosis, no anemia, d-dimer <215, electrolyte WNL, no DAMIEN, LFT WNL, troponin WNL Discussed admission with patient who agreed with plan Spoke with Dr. Blackmon who accepted care of patient. Admitting Dr. Eagle Disposition: Admit tele obs Past History - Medical History Allergies/Adverse Reactions: Allergies Allergy/AdvReac Type Severity Reaction Status Date / Time hydromorphone [From Dilaudid] Allergy Severe Hives Verified 01/04/20 21:03 gabapentin [From Neurontin] Allergy Intermediate Verified 01/04/20 21:03 pregabalin [From Lyrica] Allergy Intermediate Verified 01/04/20 21:03 oyster extract Allergy Verified 01/04/20 21:03 OYSTER BASE Allergy Severe Hives Uncoded 01/04/20 21:03 Home Medications: Ambulatory Orders Ezetimibe [Zetia] 10 mg PO DAILY 10/22/16 Rosuvastatin Calcium [Crestor] 20 mg PO HS 11/08/17 clonazePAM [Klonopin -] 0.5 mg PO BID PRN 06/13/18 Aspirin [ASA -] 81 mg PO DAILY 01/04/20 Insulin (Levemir) [Levemir Vial] 15 units SQ BID #5 pack 01/06/20 traMADol HCL [Ultram -] 50 mg PO Q6H PRN #15 tablet MDD 3 01/06/20 Acetaminophen [Tylenol .Regular Strength -] 650 mg PO Q6H PRN tablet 07/30/20 Aspirin Coated [Ecotrin -] 325 mg PO DAILY #30 tablet. 07/30/20 Duloxetine HCl [Cymbalta -] 20 mg PO DAILY #30 capsule. 07/30/20 Insulin Sliding Scale [Novolog Vial Sliding Scale -] 1 vial SQ ACHS units 07/30/20 Nitroglycerin Sublingual [Nitrostat -] 0.4 mg SL Q5M PRN tab 07/30/20 Pantoprazole Sodium [Protonix -] 40 mg PO DAILY #30 tablet.ec 07/30/20 Ramipril [Altace] 5 mg PO DAILY #30 capsule 07/30/20 Anemia: Yes Cancer: Yes (Lung 2016) Cardiac Disorders: Yes (CAD/Atypical chest pain) COPD: No (bronchitis) Diabetes: Yes HTN: Yes Hypercholesterolemia: Yes - Surgical History Lung Surgery: (LUNG BIOPSY 03/2016) - Immunization History Immunization Up to Date: Yes - Psycho-Social/Smoking History Smoking Status: Yes Smoking History: Never smoked Have you smoked in the past 12 months: No Number of Cigarettes Smoked Daily: 3 If you are a former smoker, when did you quit?: 2016 'Breaking Loose' booklet given: 07/06/15 Heart Score/ECG Review - History History: Slightly suspicious - Electrocardiogram EKG: Normal - Age Age: 45-65 - Risk Factors Risk Factors Heart Score: Yes Hx Hypercholesterolemia, Yes Hx Hypertension, Yes Hx Diabetes, Yes Positive family hx of cardiac disease Based on the list above the patient has:: >/=3 risk factors or Hx atherosclerotic disease - Troponin Troponin: </= normal limit - Score Heart Score - Total: 3 ED Treatment Course - LABORATORY CBC & Chemistry Diagram: 07/29/20 06:27 07/29/20 06:27 Discharge - Discharge Information Problems reviewed: Yes Clinical Impression/Diagnosis: Chest pain Qualifiers: Chest pain type: unspecified Qualified Code(s): R07.9 - Chest pain, unspecified Condition: Stable Disposition: HOME - Follow up/Referral - Patient Discharge Instructions - Post Discharge Activity
[2020-07-28 15:01] VITALS: BMI 26.4
--- NOTE | 2020-07-28 15:50 | PDOC ---
Documentation entered by Kane Rivera SCRIBE, acting as scribe for Rahel Humphrey MD. Rahel Humphrey MD: This documentation has been prepared by the kentrelle, Kane Rivera SCRIBE, under my direction and personally reviewed by me in its entirety. I confirm that the documentation accurately reflects all work, treatment, procedures, and medical decision making performed by me. Attending Attestation - Resident Resident Name: BourneEmy - ED Attending Attestation I have performed the following: I have examined & evaluated the patient, The case was reviewed & discussed with the resident, I agree w/resident's findings & plan, Exceptions are as noted - HPI HPI: 07/28/20 15:43 The patient is a 64 year old female with a significant past medical history of DM, CAD (on baby aspirin) , HTN, HLD, Sciatica, Cervical disk herniation, prior CVA, fibromyalgia, non-small cell lung CA s/p resection (in remission) who presents to the emergency department for evaluation of four episodes of chest pain that began three hours ago while sitting down. The patient describes chest pain as 6-7/10, intermittent, lasting for a few seconds at a time, feeling both sharp and pressure. Her most recent episode involved pressure to both her left arm and back. She also endorses shortness of breath, palpitations and anxiety. The patient denies abdominal/back pain, cough, fever, chills, nausea, vomiting, and/or any GI symptoms. Denies any symptoms. Denies any other symptoms. Allergies: hydromorphone, gabapentin, pregabalin, oyster extract, oyster base Past surgical history:s/p lobectomy (05/2018), biopsy of a nodule in her left upper lobe (03/2016) s/p wedge resection (06/2016) Social history: Former smoker (35 years ago) PCP: Dr. Abraham CT surgeon: Dr. Pyle - Physicial Exam PE: 07/28/20 14:42 GENERAL: Awake, alert, and fully oriented, in no acute distress HEAD: No signs of trauma EYES: PERRLA, EOMI, sclera anicteric, conjunctiva clear ENT: Auricles normal inspection, hearing grossly normal, nares patent, oropharynx clear without exudates. Moist mucosa NECK: Normal ROM, supple, no lymphadenopathy, JVD, or masses LUNGS: Breath sounds equal, clear to auscultation bilaterally. No wheezes, and no crackles HEART: Regular rate and rhythm, normal S1 and S2, no murmurs, rubs or gallops ABDOMEN: Soft, nontender, normoactive bowel sounds. No guarding, no rebound. No masses EXTREMITIES: Normal range of motion, no edema. No clubbing or cyanosis. No cords, erythema, or tenderness NEUROLOGICAL: Cranial nerves II through XII grossly intact. Normal speech, normal gait SKIN: Warm, Dry, normal turgor, no rashes or lesions noted. - Medical Decision Making Pt presents with L cp radiating to the L shoulder, occurred ~3 hours prior to arrival in ED. Pain in the chest (but not the arm) is reproducible. She had COVID-19 in January, will send D-dimer, consider CTA chest if positive, as it is still unclear how long the risk of PE persists. Heart Score/ECG Review - History History: Moderately suspicious - Electrocardiogram EKG: Normal - Age Age: 45-65 - Risk Factors Risk Factors Heart Score: Yes Hx Hypercholesterolemia, Yes Hx Hypertension, Yes Hx Diabetes, Yes Positive family hx of cardiac disease Based on the list above the patient has:: >/=3 risk factors or Hx atherosclerotic disease - Troponin Troponin: </= normal limit - Score Heart Score - Total: 4 Discharge - Discharge Information Problems reviewed: Yes Clinical Impression/Diagnosis: Chest pain Qualifiers: Chest pain type: unspecified Qualified Code(s): R07.9 - Chest pain, unspecified - Follow up/Referral - Patient Discharge Instructions - Post Discharge Activity
--- NOTE | 2020-07-28 15:52 | EKG ---
Test Reason : Blood Pressure : / mmHG Vent. Rate : 079 BPM Atrial Rate : 079 BPM P-R Int : 152 ms QRS Dur : 084 ms QT Int : 370 ms P-R-T Axes : 062 044 063 degrees QTc Int : 424 ms NORMAL SINUS RHYTHM NORMAL ECG WHEN COMPARED WITH ECG OF 01-APR-2020 17:16, PREMATURE ATRIAL COMPLEXES ARE NO LONGER PRESENT Confirmed by Rosalino Edmondson ([id number]) on 07/28/2020 3:52:19 PM Referred By: Confirmed By:Rosalino Edmondson
[2020-07-28 16:19] LABS: BASO % 0.8 % (0-2.0); HEMATOCRIT 42.6 % (32.4-45.2); HEMOGLOBIN 14.4 GM/dL (10.7-15.3); LYMPH % 23.3 % (8-40); MCH 28.9 pg (25.7-33.7); MCHC 33.8 g/dl (32.0-36.0); MEAN CELL VOLUME 85.6 fl (80-96); MEAN PLT VOLUME 8.2 fl (7.5-11.1); MONO % 5.3 % (3.8-10.2); NEUT % 69.6 % (42.8-82.8); PLATELET COUNT 177 K/MM3 (134-434); RBC 4.98 M/mm3 (3.60-5.2); RDW 13.4 % (11.6-15.6); WHITE BLOOD COUNT 8.8 K/mm3 (4.0-10.0)
[2020-07-28 16:56] LABS: ALBUMIN 3.8 g/dl (3.4-5.0); ALK PHOS 91 U/L (45-117); ANION GAP 6 MMOL/L (8-16); BILIRUBIN,TOTAL 0.4 mg/dL (0.2-1); BLOOD UREA NITROGEN 18.2 mg/dL (7-18); CALCIUM 9.3 mg/dL (8.5-10.1); CHLORIDE 109 mmol/L (98-107); CO2 26 mmol/L (21-32); CREATININE 0.6 mg/dL (0.55-1.3); GLUCOSE,RANDOM 272 mg/dL (74-106); POTASSIUM 4.5 mmol/L (3.5-5.1); SGOT/AST 12 U/L (15-37); SGPT/ALT 41 U/L (13-61); SODIUM 141 mmol/L (136-145); TOT PROT 6.8 g/dl (6.4-8.2)
[2020-07-28] MEDS ORDERED: NITROGLYCERIN SUBLINGUAL 1/150 0.4 MG TAB SL PRN (19:55)
[2020-07-28] MEDS ORDERED: ACETAMINOPHEN 325 MG TABLET (FP) PO PRN (19:55)
[2020-07-28] MEDS ORDERED: traMADol HCL 50 MG TABLET PO PRN (19:58)
[2020-07-28] MEDS ORDERED: clonazePAM 0.5 MG TABLET PO PRN (19:58)
--- NOTE | 2020-07-28 20:11 | HP ---
CHIEF COMPLAINT: chest pain PCP: Leigh HISTORY OF PRESENT ILLNESS: 64yo F with PMH DM, HTN, HLD, CAD, sciatica, cervical disk herniation, fibromyalgia, NSCLC s/p RLL resection, +Covid in January, who presents with chest pain for a couplr days, but worse today. Pain is usually with exertion but today was at rest and worried her, located in the substernal region and had some palpitations. At home no radiation of the pain but states in the ambulance had some radiation to the back. In the ED pt reports having another episode but resolved within a few seconds. She was gven ASA 324mg in the ambulance. Currently chest pain free. Reports having chronic sob, nothing new. No associated nausea or vomiting, no jaw pain or neck pain, denies left arm pain or paresthesias. Pt states she has had a cardiac cath in the past year, non obs cad -- no intervention needed ER course was notable for: (1) Chest Pain (2) (3) Recent Travel: Denies PAST MEDICAL HISTORY: as above PAST SURGICAL HISTORY: s/p lng resection for NSCLC --RLL Social History: Smoking: quit in 2016 when diagnosed with lung cancer Alcohol: None recently Drugs: Denies Allergies hydromorphone [From Dilaudid] Allergy (Severe, Verified 01/04/20 21:03) Hives gabapentin [From Neurontin] Allergy (Intermediate, Verified 01/04/20 21:03) hair loss pregabalin [From Lyrica] Allergy (Intermediate, Verified 01/04/20 21:03) oyster extract Allergy (Verified 01/04/20 21:03) OYSTER BASE Allergy (Severe, Uncoded 01/04/20 21:03) Hives ANAPHYLAXIS HOME MEDICATIONS: Home Medications Medication Instructions Recorded Ezetimibe [Zetia] 10 mg PO DAILY 10/22/16 Rosuvastatin Calcium [Crestor] 10 mg PO HS 11/08/17 clonazePAM [Klonopin -] 0.5 mg PO BID PRN 06/13/18 Aspirin [ASA -] 81 mg PO DAILY 01/04/20 Insulin (Levemir) [Levemir Vial] 15 units SQ BID #5 pack 01/06/20 traMADol HCL [Ultram -] 50 mg PO Q6H PRN #15 tablet MDD 3 01/06/20 REVIEW OF SYSTEMS CONSTITUTIONAL: Absent: fever, chills, diaphoresis, generalized weakness, malaise, loss of appetite, weight change HEENT: Absent: rhinorrhea, nasal congestion, throat pain, throat swelling, difficulty swallowing, mouth swelling, ear pain, eye pain, visual changes CARDIOVASCULAR: POS chest pain, syncope, palpitations No irregular heart rate, lightheadedness, peripheral edema RESPIRATORY: Absent: cough, shortness of breath, dyspnea with exertion, orthopnea, wheezing, stridor, hemoptysis GASTROINTESTINAL: Absent: abdominal pain, abdominal distension, nausea, vomiting, diarrhea, constipation, melena, hematochezia GENITOURINARY: Absent: dysuria, frequency, urgency, hesitancy, hematuria, flank pain, genital pain MUSCULOSKELETAL: Absent: myalgia, arthralgia, joint swelling, back pain, neck pain SKIN: Absent: rash, itching, pallor HEMATOLOGIC/IMMUNOLOGIC: Absent: easy bleeding, easy bruising, lymphadenopathy, frequent infections ENDOCRINE: Absent: unexplained weight gain, unexplained weight loss, heat intolerance, cold intolerance NEUROLOGIC: Absent: headache, focal weakness or paresthesias, dizziness, unsteady gait, seizure, mental status changes, bladder or bowel incontinence PSYCHIATRIC: Absent: anxiety, depression, suicidal or homicidal ideation, hallucinations. PHYSICAL EXAMINATION Vital Signs - 24 hr 07/28/20 07/28/20 07/28/20 14:36 15:00 17:13 Temperature 98.8 F Pulse Rate 81 Pulse Rate [ 61 Right Radial] Respiratory 18 15 Rate Blood Pressure 122/58 L Blood Pressure 122/67 [Left Arm] O2 Sat by Pulse 97 98 97 Oximetry (%) GENERAL: Awake, alert, and fully oriented, in no acute distress. HEAD: Normal with no signs of trauma. EYES: extraocular movements intact, sclera anicteric, conjunctiva clear. No lid lag. EARS, NOSE, THROAT: Ears normal, nares patent, oropharynx clear without exudates. Moist mucous membranes. NECK: Normal range of motion, supple without lymphadenopathy, JVD, or masses. LUNGS: Breath sounds equal, clear to auscultation bilaterally. No wheezes, and no crackles. No accessory muscle use. decreased bs diane HEART: Regular rate and rhythm, normal S1 and S2 without murmur, rub or gallop. ABDOMEN: Soft, nontender, not distended, normoactive bowel sounds, no guarding, no rebound, no masses. No hepatomegaly or splenomegaly. MUSCULOSKELETAL: Normal range of motion at all joints. No bony deformities or tenderness. No CVA tenderness. UPPER EXTREMITIES: 2+ pulses, warm, well-perfused. No cyanosis. No clubbing. No peripheral edema. LOWER EXTREMITIES: 2+ pulses, warm, well-perfused. No calf tenderness. No peripheral edema. NEUROLOGICAL: Cranial nerves II-XII intact. Normal speech. Normal gait. PSYCHIATRIC: Cooperative. Good eye contact. Appropriate mood and affect. SKIN: Warm, dry, normal turgor, no rashes or lesions noted, normal capillary refill. Laboratory Results - last 24 hr 07/28/20 07/28/20 07/28/20 16:13 16:13 16:13 WBC 8.8 RBC 4.98 Hgb 14.4 Hct 42.6 MCV 85.6 MCH 28.9 MCHC 33.8 RDW 13.4 Plt Count 177 MPV 8.2 Absolute Neuts (auto) 6.1 Neutrophils % 69.6 D Lymphocytes % 23.3 D Monocytes % 5.3 Eosinophils % 1.0 Basophils % 0.8 D Nucleated RBC % 0 D-Dimer < 215 Sodium 141 Potassium 4.5 Chloride 109 H Carbon Dioxide 26 Anion Gap 6 L BUN 18.2 H Creatinine 0.6 Est GFR (CKD-EPI)AfAm 112.43 Est GFR (CKD-EPI)NonAf 97.01 Random Glucose 272 H Calcium 9.3 Total Bilirubin 0.4 AST 12 L ALT 41 Alkaline Phosphatase 91 Troponin I < 0.02 Total Protein 6.8 Albumin 3.8 EKG: NSR@79bpm, no acute ST T wave changes CXR: No acute infiltrates, right base and left midlung scarring (chronic) ASSESSMENT/PLAN: 64 y/o female with the above med hx admitted with chest pain *chest pain -- admit to obs, acs versus atypical ? 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 *htn - bp well controlled, takes ramipril daily will continue --monitor for low bp (states gets dizzy at times) *hl - cont zetia and statin check lipids in am *dm - pt reports uncontrolled, check hba1c cont levemir and insulin sliding scale *fibromyalgia - on tramadol for pain didnt do well with cymbalta or lyrica she states *dvt prophy - lovenox daily Family Medical History Family History: As Documented Family Hx Cardiac Disorders: Father Other Family History: mother - panc cancer Problem List - Problem (1) Chest pain Code(s): R07.9 - CHEST PAIN, UNSPECIFIED Qualifiers: Chest pain type: unspecified Qualified Code(s): R07.9 - Chest pain, unspecified Visit type - Emergency Visit Emergency Visit: Yes ED Registration Date: 07/28/20 Care time: The patient presented to the Emergency Department on the above date and was hospitalized for further evaluation of their emergent condition. - New Patient This patient is new to me today: Yes Date on this admission: 07/28/20 - Critical Care Critical Care patient: No
[2020-07-28] MEDS: ENOXAPARIN NA (PORCINE) 40 MG/0.4 ML DISP.SYRIN SQ SCH (20:13)
[2020-07-28] MEDS: INSULIN SLIDING SCALE (NOVOLOG) 1 VIAL SQ SCH (21:26)
[2020-07-28] MEDS: ROSUVASTATIN CA 10 MG TABLET (FP) PO SCH (22:10)
[2020-07-28] MEDS: EZETIMIBE 10 MG TABLET (FP) PO SCH (22:10)
[2020-07-28] MEDS: INSULIN (LEVEMIR) 100 UNITS/ML UNITS SQ SCH (22:11)
[2020-07-29] MEDS ORDERED: ACETAMINOPHEN 325 MG TABLET (FP) ONE (04:52)
[2020-07-29] MEDS ORDERED: clonazePAM 0.5 MG TABLET ONE (04:53)
[2020-07-29] MEDS: INSULIN SLIDING SCALE (NOVOLOG) 1 VIAL SQ SCH ×5 (06:04→22:59)
[2020-07-29 07:21] LABS: BASO % 0.2 % (0-2.0); EOS % 1.9 % (0-4.5); HEMATOCRIT 43.9 % (32.4-45.2); HEMOGLOBIN 14.8 GM/dL (10.7-15.3); LYMPH % 36.8 % (8-40); MCH 28.7 pg (25.7-33.7); MCHC 33.7 g/dl (32.0-36.0); MEAN CELL VOLUME 85.3 fl (80-96); MEAN PLT VOLUME 8.1 fl (7.5-11.1); MONO % 7.4 % (3.8-10.2); NEUT % 53.7 % (42.8-82.8); PLATELET COUNT 169 K/MM3 (134-434); RBC 5.15 M/mm3 (3.60-5.2); RDW 13.4 % (11.6-15.6); WHITE BLOOD COUNT 5.3 K/mm3 (4.0-10.0)
[2020-07-29 07:55] LABS: ANION GAP 6 MMOL/L (8-16); BLOOD UREA NITROGEN 13.1 mg/dL (7-18); CALCIUM 9.1 mg/dL (8.5-10.1); CHLORIDE 108 mmol/L (98-107); CHOLESTEROL 81 mg/dL (50-200); CO2 27 mmol/L (21-32); CREATININE 0.5 mg/dL (0.55-1.3); GLUCOSE,RANDOM 172 mg/dL (74-106); HDL CHOLESTEROL 31 mg/dL (40-60); LDL CHOLESTEROL (ONLY SJRH) 38 mg/dL (5-100); POTASSIUM 4.2 mmol/L (3.5-5.1); SODIUM 141 mmol/L (136-145); TRIGLYCERIDES 72 mg/dL (0-150)
[2020-07-29] MEDS ORDERED: ASPIRIN 325 MG ENTERIC COATED TABLET (FP) ONE (09:38)
[2020-07-29] MEDS ORDERED: RAMIPRIL 5 MG CAPSULE (FP) ONE (09:38)
[2020-07-29] MEDS ORDERED: INSULIN (LEVEMIR) 100 UNITS/ML UNITS SQ ONE ×2 (09:39→22:45)
[2020-07-29] MEDS ORDERED: PIPERACILLIN/TAZOB 3.375 GM 3.375 GM/50 ML BAG IVPB ONE (09:39)
[2020-07-29] MEDS ORDERED: ENOXAPARIN NA (PORCINE) 40 MG/0.4 ML DISP.SYRIN SQ ONE (09:39)
[2020-07-29] MEDS: ASPIRIN 325 MG ENTERIC COATED TABLET (FP) PO SCH (10:32)
[2020-07-29] MEDS: RAMIPRIL 5 MG CAPSULE (FP) PO SCH (10:32)
[2020-07-29] MEDS: INSULIN (LEVEMIR) 100 UNITS/ML UNITS SQ SCH ×2 (10:32→22:58)
[2020-07-29] MEDS: ENOXAPARIN NA (PORCINE) 40 MG/0.4 ML DISP.SYRIN SQ SCH (10:33)
--- NOTE | 2020-07-29 11:03 | PN ---
Progress Note, Physician History of Present Illness: 64yo F with PMH DM, HTN, HLD, CAD, sciatica, cervical disk herniation, fibromyalgia, NSCLC s/p RLL resection, +Covid in January, anxiety who presents with chest pain for a couplr days, but worse today. Pain is usually with exertion but today was at rest and worried her, located in the substernal region and had some palpitations. At home no radiation of the pain but states in the ambulance had some radiation to the back. In the ED pt reports having another episode but resolved within a few seconds. She was gven ASA 324mg in the ambulance. Currently chest pain free. Reports having chronic sob, nothing new. No associated nausea or vomiting, no jaw pain or neck pain, denies left arm pain or paresthesias. - Current Medication List Current Medications: Active Medications Acetaminophen (Tylenol -) 650 mg PO Q6H PRN PRN Reason: FEVER Last Admin: 07/29/20 04:59 Dose: 650 mg Documented by: Aspirin (Ecotrin -) 325 mg PO DAILY [facility] Last Admin: 07/29/20 10:32 Dose: 325 mg Documented by: Clonazepam (Klonopin -) 0.5 mg PO BID PRN PRN Reason: ANXIETY Last Admin: 07/29/20 04:59 Dose: 0.5 mg Documented by: Ezetimibe (Zetia -) 10 mg PO [facility] Last Admin: 07/28/20 22:10 Dose: 10 mg Documented by: Enoxaparin Sodium (Lovenox -) 40 mg SQ DAILY [facility] Last Admin: 07/29/20 10:33 Dose: 40 mg Documented by: Insulin Aspart (Novolog Vial Sliding Scale -) 1 vial SQ [facility]; Protocol Last Admin: 07/29/20 07:30 Dose: 2 units Documented by: Insulin Detemir (Levemir Vial) 15 units SQ BID [facility] Last Admin: 07/29/20 10:32 Dose: 15 units Documented by: Nitroglycerin (Nitrostat -) 0.4 mg SL Q5M PRN PRN Reason: FOR CHEST PAIN Ramipril (Altace -) 5 mg PO DAILY [facility] Last Admin: 07/29/20 10:32 Dose: 5 mg Documented by: Rosuvastatin Calcium (Crestor -) 10 mg PO [facility] Last Admin: 07/28/20 22:10 Dose: 10 mg Documented by: Tramadol HCl (Ultram -) 50 mg PO Q6H PRN PRN Reason: PAIN LEVEL 6-10 - Objective Vital Signs: Vital Signs Temperature 98.5 F 07/29/20 03:55 Pulse Rate 63 07/29/20 10:34 Respiratory Rate 18 07/29/20 10:34 Blood Pressure 117/62 07/29/20 10:34 O2 Sat by Pulse Oximetry (%) 98 07/29/20 10:34 Cardiovascular: Yes: Regular Rate and Rhythm Respiratory: Yes: Regular, CTA Bilaterally Gastrointestinal: Yes: Normal Bowel Sounds, Soft Musculoskeletal: Yes: Back Pain, Muscle Pain, Muscle Weakness Labs: CBC, BMP 07/29/20 06:27 07/29/20 06:27 Problem List - Problems (1) Gait disturbance Assessment/Plan: Neuro consult Code(s): R26.9 - UNSPECIFIED ABNORMALITIES OF GAIT AND MOBILITY (2) Chest pain Assessment/Plan: ce negative atypical toradol x 1 cardio Code(s): R07.9 - CHEST PAIN, UNSPECIFIED Qualifiers: Chest pain type: unspecified Qualified Code(s): R07.9 - Chest pain, unspecified (3) Diabetes Assessment/Plan: [facility] outpatient follow up Code(s): E11.9 - TYPE 2 DIABETES MELLITUS WITHOUT COMPLICATIONS (4) HTN (hypertension) Assessment/Plan: Vital Signs Period Temp Pulse Resp BP Sys/Dickson Pulse Ox Last 24 Hr 98.5 F-98.8 F 60-81 15-18 112-135/58-67 97-100 Code(s): I10 - ESSENTIAL (PRIMARY) HYPERTENSION
[2020-07-29] MEDS ORDERED: KETOROLAC TROMETHAMINE 60 MG/2 ML VIAL IM ONE (11:07)
--- NOTE | 2020-07-29 12:38 | CON.CARD ---
Cardiology Consult (text) - Consultation Consultation Note: 64yo F with PMH DM, HTN, HLD, CAD, sciatica, cervical disk herniation, fibromyalgia, NSCLC s/p RLL resection, +Covid in January, anxiety who presents with chest pain for a few days, but worse today. Pain is usually with exertion but today was at rest and worried her, located in the substernal region and had some palpitations. At home no radiation of the pain but states in the ambulance had some radiation to the back. In the ED pt reports having another episode but resolved within a few seconds. Reports having chronic sob, nothing new. No associated nausea or vomiting, no jaw pain or neck pain, denies left arm pain or paresthesias. Pt states she has had a cardiac cath in the past year, non obs cad -- no intervention needed Echo and stress 12/2019 negative.
[2020-07-29] MEDS ORDERED: KETOROLAC TROMETHAMINE 60 MG/2 ML VIAL ONE (13:49)
[2020-07-29] MEDS ORDERED: PANTOPRAZOLE 40 MG TABLET ONE (13:49)
[2020-07-29] MEDS: PANTOPRAZOLE 40 MG TABLET PO SCH (14:29)
[2020-07-29] MEDS: DULoxetine HCL 20 MG CAPSULE.DR PO SCH (15:00)
--- NOTE | 2020-07-29 15:45 | CON.CARD ---
Consult - History of Present Illness Chief Complaint: chest pain History of Present Illness: 64yo F with PMH DM, HTN, HLD, sciatica, cervical disk herniation, fibromyalgia, NSCLC s/p RLL resection, +Covid in January, who presents with chronic chest pain . CP ongoing for decades. Worse today. Workup included negative Stress test and cardiac cath about 10 years ago told had non-obstructive CAD. Reports having chronic sob, nothing new. No associated nausea or vomiting, no jaw pain or neck pain, denies left arm pain or paresthesias. Echo and stress 12/2019 negative. - Past Medical History Cardio/Vascular: Yes: CAD, HTN, Hyperlipdemia Pulmonary: Yes: COPD ...: No Endocrine: Yes: Diabetes Mellitus - Past Surgical History Past Surgical History: Yes: None - Alcohol/Substance Use Hx Alcohol Use: No History of Substance Use: reports: None - Smoking History Smoking history: Never smoked Have you smoked in the past 12 months: No Aproximately how many cigarettes per day: 3 If you are a former smoker, when did you quit?: 2016 - Social History ADL: Independent History of Recent Travel: No Home Medications - Allergies Allergies/Adverse Reactions: Allergies Allergy/AdvReac Type Severity Reaction Status Date / Time hydromorphone [From Dilaudid] Allergy Severe Hives Verified 01/04/20 21:03 gabapentin [From Neurontin] Allergy Intermediate Verified 01/04/20 21:03 pregabalin [From Lyrica] Allergy Intermediate Verified 01/04/20 21:03 oyster extract Allergy Verified 01/04/20 21:03 OYSTER BASE Allergy Severe Hives Uncoded 01/04/20 21:03 - Home Medications Home Medications: Ambulatory Orders Ezetimibe [Zetia] 10 mg PO DAILY 10/22/16 Rosuvastatin Calcium [Crestor] 10 mg PO HS 11/08/17 clonazePAM [Klonopin -] 0.5 mg PO BID PRN 06/13/18 Aspirin [ASA -] 81 mg PO DAILY 01/04/20 Insulin (Levemir) [Levemir Vial] 15 units SQ BID #5 pack 01/06/20 traMADol HCL [Ultram -] 50 mg PO Q6H PRN #15 tablet MDD 3 01/06/20 Family Medical History Family Hx Cardiac Disorders: Father Other Family History: mother - panc cancer Review of Systems - Review of Systems Constitutional: reports: No Symptoms Eyes: reports: No Symptoms HENT: reports: No Symptoms Neck: reports: No Symptoms Cardiovascular: reports: Chest Pain Respiratory: reports: No Symptoms Gastrointestinal: reports: No Symptoms Vital Signs: Vital Signs Temperature 98.5 F 07/29/20 03:55 Pulse Rate 63 07/29/20 10:34 Respiratory Rate 18 07/29/20 10:34 Blood Pressure 117/62 07/29/20 10:34 O2 Sat by Pulse Oximetry (%) 98 07/29/20 10:34 Constitutional: Yes: Well Nourished, No Distress Eyes: Yes: Conjunctiva Clear HENT: Yes: Atraumatic, Normocephalic Neck: Yes: Supple, Trachea Midline Respiratory: Yes: Regular, CTA Bilaterally Gastrointestinal: Yes: Normal Bowel Sounds JVD: No Heart Sounds: Yes: S1, S2 Murmur: No: Systolic Murmur, Diastolic Murmur Edema: No - Other Data Labs, Other Data: CBC, BMP 07/29/20 06:27 07/29/20 06:27 Troponin, BNP 07/28/20 07/29/20 16:13 06:27 Troponin I < 0.02 < 0.02 Troponin, BNP 07/28/20 07/29/20 16:13 06:27 Troponin I < 0.02 < 0.[address] t changes Problem List - Problems (1) Chest pain Code(s): R07.9 - CHEST PAIN, UNSPECIFIED Qualifiers: Chest pain type: unspecified Qualified Code(s): R07.9 - Chest pain, unspecified Assessment/Plan 64yo F with PMH DM, HTN, HLD, sciatica, cervical disk herniation, fibromyalgia, NSCLC s/p RLL resection, +Covid in January, who presents with chronic chest pain . Workup included negative Stress test and cardiac cath about 10 years ago told had non-obstructive CAD. On exam chest pain is entirely reproduced. Non cardiac chest pain. No ECG changes and recent cardiac eval including stress and echo were normal. No further inpatient cardiac testing is advised.
[2020-07-29] MEDS: ROSUVASTATIN CA 10 MG TABLET (FP) PO SCH (22:58)
[2020-07-29] MEDS: EZETIMIBE 10 MG TABLET (FP) PO SCH (22:59)
[2020-07-30] MEDS: INSULIN SLIDING SCALE (NOVOLOG) 1 VIAL SQ SCH ×3 (06:30→17:02)
[2020-07-30] MEDS: INSULIN (LEVEMIR) 100 UNITS/ML UNITS SQ SCH (07:40)
--- NOTE | 2020-07-30 09:12 | CONSULT ---
Consult - text type - Consultation Consultation Note: Neurology CHIEF COMPLAINT: chest pain PCP: Leigh HISTORY OF PRESENT ILLNESS: 64yo F with PMH DM, HTN, HLD, CAD, sciatica, cervical disk herniation, fibromyalgia, NSCLC s/p RLL resection, +Covid in January, anxiety who presents with chest pain for several days, but worse on day of admission. Pain is usually with exertion but today was at rest and worried her, located in the substernal region and had some palpitations. At home no radiation of the pain but states in the ambulance had some radiation to the back. In the ED pt reports having another episode but resolved within a few seconds. She was gven ASA 324mg in the ambulance. Currently chest pain free. neurology was consulted due to her complaints of difficulty with gait. She does report the symptoms are chronic occurring for approximately 6 months and does endorse some low back pain. Would be of benefit to obtain lumbar spine imaging as well as CT scan of the head to confirm no cerebral infarct. She may benefit from physical therapy and assistive device. Recent Travel: Denies PAST MEDICAL HISTORY: as above PAST SURGICAL HISTORY: s/p lng resection for NSCLC --RLL Social History: Smoking: quit in 2016 when diagnosed with lung cancer Alcohol: None recently Drugs: Denies Family: HTN Allergies hydromorphone [From Dilaudid] Allergy (Severe, Verified 01/04/20 21:03) Hives gabapentin [From Neurontin] Allergy (Intermediate, Verified 01/04/20 21:03) hair loss pregabalin [From Lyrica] Allergy (Intermediate, Verified 01/04/20 21:03) oyster extract Allergy (Verified 01/04/20 21:03) OYSTER BASE Allergy (Severe, Uncoded 01/04/20 21:03) Hives ANAPHYLAXIS HOME MEDICATIONS: Home Medications Medication Instructions Recorded Ezetimibe [Zetia] 10 mg PO DAILY 10/22/16 Rosuvastatin Calcium [Crestor] 10 mg PO HS 11/08/17 clonazePAM [Klonopin -] 0.5 mg PO BID PRN 06/13/18 Aspirin [ASA -] 81 mg PO DAILY 01/04/20 Insulin (Levemir) [Levemir Vial] 15 units SQ BID #5 pack 01/06/20 traMADol HCL [Ultram -] 50 mg PO Q6H PRN #15 tablet MDD 3 01/06/20 REVIEW OF SYSTEMS CONSTITUTIONAL: Absent: fever, chills, diaphoresis, generalized weakness, malaise, loss of appetite, weight change HEENT: Absent: rhinorrhea, nasal congestion, throat pain, throat swelling, difficulty swallowing, mouth swelling, ear pain, eye pain, visual changes CARDIOVASCULAR: POS chest pain, syncope, palpitations No irregular heart rate, lightheadedness, peripheral edema RESPIRATORY: Absent: cough, shortness of breath, dyspnea with exertion, orthopnea, wheezing, stridor, hemoptysis GASTROINTESTINAL: Absent: abdominal pain, abdominal distension, nausea, vomiting, diarrhea, constipation, melena, hematochezia GENITOURINARY: Absent: dysuria, frequency, urgency, hesitancy, hematuria, flank pain, genital pain MUSCULOSKELETAL: Absent: myalgia, arthralgia, joint swelling, back pain, neck pain SKIN: Absent: rash, itching, pallor HEMATOLOGIC/IMMUNOLOGIC: Absent: easy bleeding, easy bruising, lymphadenopathy, frequent infections ENDOCRINE: Absent: unexplained weight gain, unexplained weight loss, heat intolerance, cold intolerance NEUROLOGIC: Absent: headache, focal weakness or paresthesias, dizziness, unsteady gait, seizure, mental status changes, bladder or bowel incontinence PSYCHIATRIC: Absent: anxiety, depression, suicidal or homicidal ideation, hallucinations. PHYSICAL EXAMINATION Vital Signs Period Temp Pulse Resp BP Sys/Dickson Pulse Ox Last 24 Hr 97.6 F-98.3 F 56-73 18-20 117-148/62-74 97-98 GENERAL: Awake, alert, and fully oriented, in no acute distress. HEAD: Normal with no signs of trauma. EYES: extraocular movements intact, sclera anicteric, conjunctiva clear. No lid lag. EARS, NOSE, THROAT: Ears normal, nares patent, oropharynx clear without exudates. Moist mucous membranes. NECK: Normal range of motion, supple without lymphadenopathy, JVD, or masses. LUNGS: Breath sounds equal, clear to auscultation bilaterally. No wheezes, and no crackles. No accessory muscle use. decreased bs diane HEART: Regular rate and rhythm, normal S1 and S2 without murmur, rub or gallop. ABDOMEN: Soft, nontender, not distended, normoactive bowel sounds, no guarding, no rebound, no masses. No hepatomegaly or splenomegaly. MUSCULOSKELETAL: Normal range of motion at all joints. No bony deformities or tenderness. No CVA tenderness. UPPER EXTREMITIES: 2+ pulses, warm, well-perfused. No cyanosis. No clubbing. No peripheral edema. LOWER EXTREMITIES: 2+ pulses, warm, well-perfused. No calf tenderness. No peripheral edema. NEUROLOGICAL: Cranial nerves II-XII intact. Normal speech. Gait slightly antalgic and favoring the right PSYCHIATRIC: Cooperative. Good eye contact. Appropriate mood and affect. SKIN: Warm, dry, normal turgor, no rashes or lesions noted, normal capillary refill. Laboratory Results - last 24 hr 07/28/20 07/28/20 07/28/20 16:13 16:13 16:13 WBC 8.8 RBC 4.98 Hgb 14.4 Hct 42.6 MCV 85.6 MCH 28.9 MCHC 33.8 RDW 13.4 Plt Count 177 MPV 8.2 Absolute Neuts (auto) 6.1 Neutrophils % 69.6 D Lymphocytes % 23.3 D Monocytes % 5.3 Eosinophils % 1.0 Basophils % 0.8 D Nucleated RBC % 0 D-Dimer < 215 Sodium 141 Potassium 4.5 Chloride 109 H Carbon Dioxide 26 Anion Gap 6 L BUN 18.2 H Creatinine 0.6 Est GFR (CKD-EPI)AfAm 112.43 Est GFR (CKD-EPI)NonAf 97.01 Random Glucose 272 H Calcium 9.3 Total Bilirubin 0.4 AST 12 L ALT 41 Alkaline Phosphatase 91 Troponin I < 0.02 Total Protein 6.8 Albumin 3.8 CXR: No acute infiltrates, right base and left midlung scarring (chronic) ASSESSMENT/PLAN: 64yo F with PMH DM, HTN, HLD, CAD, sciatica, cervical disk herniation, fibromyalgia, NSCLC s/p RLL resection, +Covid in January, who presents with chest pain for several days, but worse on day of admission. Pain is usually with exertion but today was at rest and worried her, located in the substernal region and had some palpitations. At home no radiation of the pain but states in the ambulance had some radiation to the back. In the ED pt reports having another episode but resolved within a few seconds. She was gven ASA 324mg in the ambulance. Currently chest pain free. neurology was consulted due to her complaints of difficulty with gait. She does report the symptoms are chronic occurring for approximately 6 months and does endorse some low back pain. Would be of benefit to obtain lumbar spine imaging as well as CT scan of the head to confirm no cerebral infarct. She may benefit from physical therapy and assistive device. continue cardiac optimization, physical therapy while admitted would be of benefit. Fall precaution. Follow up head and L spine imaging. Monitor glucose, potential uncontrolled diabetes may be leading to underlying neuropathy as well. Fibromyalgia may also be underlying etiology, continue pain management..
[2020-07-30 09:16] VITALS: PULSE 66
[2020-07-30] MEDS: DULoxetine HCL 20 MG CAPSULE.DR PO SCH (09:17)
[2020-07-30] MEDS: PANTOPRAZOLE 40 MG TABLET PO SCH (09:17)
[2020-07-30] MEDS: ENOXAPARIN NA (PORCINE) 40 MG/0.4 ML DISP.SYRIN SQ SCH (09:17)
[2020-07-30] MEDS: RAMIPRIL 5 MG CAPSULE (FP) PO SCH (09:17)
[2020-07-30] MEDS: ASPIRIN 325 MG ENTERIC COATED TABLET (FP) PO SCH (09:18)
[2020-07-30 13:52] VITALS: BP 136/72; TEMP 98.4
--- NOTE | 2020-07-30 14:49 | PN ---
Progress Note, Physician Chief Complaint: Chest pain History of Present Illness: 64yo F with PMH DM, HTN, HLD, CAD, sciatica, cervical disk herniation, fibromyalgia, NSCLC s/p RLL resection, +Covid in January, anxiety who presents with chest pain for a couplr days, but worse today. Pain is usually with exertion but today was at rest and worried her, located in the substernal region and had some palpitations. At home no radiation of the pain but states in the ambulance had some radiation to the back. In the ED pt reports having another episode but resolved within a few seconds. She was gven ASA 324mg in the ambulance. Currently denies any Chest pain Had CT head and L spine CT head unremarkable CT L Spine:A small to moderate extruded central L4-L5 disc herniation is noted with disc material posterior to the L4 inferior endplate. Moderate right L4-L5 degenerative facet arthrosis. - Current Medication List Current Medications: Active Medications Acetaminophen (Tylenol -) 650 mg PO Q6H PRN PRN Reason: FEVER Last Admin: 07/29/20 04:59 Dose: 650 mg Documented by: Aspirin (Ecotrin -) 325 mg PO DAILY [facility] Last Admin: 07/30/20 09:18 Dose: 325 mg Documented by: Clonazepam (Klonopin -) 0.5 mg PO BID PRN PRN Reason: ANXIETY Last Admin: 07/29/20 04:59 Dose: 0.5 mg Documented by: Duloxetine HCl (Cymbalta -) 20 mg PO DAILY [facility] Last Admin: 07/30/20 09:17 Dose: 20 mg Documented by: Ezetimibe (Zetia -) 10 mg PO HS [facility] Last Admin: 07/29/20 22:59 Dose: 10 mg Documented by: Enoxaparin Sodium (Lovenox -) 40 mg SQ DAILY [facility] Last Admin: 07/30/20 09:17 Dose: 40 mg Documented by: Insulin Aspart (Novolog Vial Sliding Scale -) 1 vial SQ [facility]; Protocol Last Admin: 07/30/20 12:03 Dose: 2 units Documented by: Insulin Detemir (Levemir Vial) 20 units SQ BID@0700,2200 [facility] Last Admin: 07/30/20 07:40 Dose: 20 unit Documented by: Nitroglycerin (Nitrostat -) 0.4 mg SL Q5M PRN PRN Reason: FOR CHEST PAIN Pantoprazole Sodium (Protonix -) 40 mg PO DAILY [facility] Last Admin: 07/30/20 09:17 Dose: 40 mg Documented by: Ramipril (Altace -) 5 mg PO DAILY [facility] Last Admin: 07/30/20 09:17 Dose: 5 mg Documented by: Rosuvastatin Calcium (Crestor -) 10 mg PO HS [facility] Last Admin: 07/29/20 22:58 Dose: 10 mg Documented by: Tramadol HCl (Ultram -) 50 mg PO Q6H PRN PRN Reason: PAIN LEVEL 6-10 Last Admin: 07/30/20 12:04 Dose: 50 mg Documented by: - Objective Vital Signs: Vital Signs Temperature 98.4 F 07/30/20 13:50 Pulse Rate 66 07/30/20 13:50 Respiratory Rate 18 07/30/20 13:50 Blood Pressure 136/72 07/30/20 13:50 O2 Sat by Pulse Oximetry (%) 97 07/30/20 09:15 Constitutional: Yes: Well Nourished, No Distress, Calm Cardiovascular: Yes: Regular Rate and Rhythm Respiratory: Yes: Regular, CTA Bilaterally Gastrointestinal: Yes: Normal Bowel Sounds, Soft Genitourinary: Yes: WNL Musculoskeletal: Yes: WNL Extremities: Yes: WNL Edema: No Peripheral Pulses WNL: Yes Neurological: Yes: Alert, Oriented Psychiatric: Yes: Alert, Oriented Labs: CBC, BMP 07/29/20 06:27 07/29/20 06:27 Problem List - Problems (1) Chest pain Assessment/Plan: -Atypical chest pain -Seen by Cardiology -Echo + Stress test in 01/11 negative -no more interventions recommended at this time Problems reviewed: Yes Code(s): R07.9 - CHEST PAIN, UNSPECIFIED Qualifiers: Chest pain type: unspecified Qualified Code(s): R07.9 - Chest pain, unspeci fied (2) Diabetes Assessment/Plan: -A1c at 9.3 -BGM AC HS -ISS -Diabetic low sodium diet -Levemir 20 U BID Problems reviewed: Yes Code(s): E11.9 - TYPE 2 DIABETES MELLITUS WITHOUT COMPLICATIONS (3) HTN (hypertension) Assessment/Plan: -Continue home meds Problems reviewed: Yes Code(s): I10 - ESSENTIAL (PRIMARY) HYPERTENSION (4) Low back pain Assessment/Plan: -CT L Spine:A small to moderate extruded central L4-L5 disc herniation is noted with disc material posterior to the L4 inferior endplate. Moderate right L4-L5 degenerative facet arthrosis. -Seen by Neurology -PT outpatient Problems reviewed: Yes Code(s): M54.5 - LOW BACK PAIN Assessment/Plan See problem list D/C home with f/u outpatient and Physical therapy
== END 2020-07-30 18:42 | disposition home or self-care (01) | DRG 556 ==
LOC: JER 14:06 → JERBED 17:41 → J4S 07-29 23:58
PROVIDERS: ADMIT Internal Medicine; ATTEND Family Medicine
DX: M79.7 Fibromyalgia (principal); R07.89 Other chest pain; I25.10 Atherosclerotic heart disease of native coronary artery without angina pectoris; F41.9 Anxiety disorder, unspecified; E11.9 Type 2 diabetes mellitus without complications; I10 Essential (primary) hypertension; E78.5 Hyperlipidemia, unspecified; M54.30 Sciatica, unspecified side; Z86.19 Personal history of other infectious and parasitic diseases; Z79.4 Long term (current) use of insulin; Z85.118 Personal history of other malignant neoplasm of bronchus and lung; R07.9 Chest pain, unspecified; R26.9 Unspecified abnormalities of gait and mobility; M54.5 Low back pain
CPT/HCPCS: 36415; 70450-TC; 71045-TC-FY; 72131-TC; 80048; 80053; 80061; 82550; 82962; 83036; 83721; 83735; 84443; 84484; 85025; 85379; 93005; 93010; 99285-25; U0003

== ENCOUNTER 2021-03-27 23:25 | Emergency (ER) | payer OTHER ==
[2021-03-27 23:49] VITALS: BP 103/88; PULSE 74; TEMP 98.4; BMI 26.2
[2021-03-28] MEDS ORDERED: SODIUM CHLORIDE 0.9% 500 ML INFUS.BAG IV ONE (01:21)
[2021-03-28] MEDS ORDERED: METOCLOPRAMIDE HCL INJECTION 10 MG/2 ML VIAL IVPUSH ONE (01:21)
[2021-03-28 01:23] LABS: BASO % 0.5 % (0-2.0); HEMATOCRIT 40.3 % (32.4-45.2); HEMOGLOBIN 13.5 GM/dL (10.7-15.3); LYMPH % 25.3 % (8-40); MCH 28.9 pg (25.7-33.7); MCHC 33.6 g/dl (32.0-36.0); MEAN PLT VOLUME 7.9 fl (7.5-11.1); MONO % 12.1 % (3.8-10.2); NEUT % 60.1 % (42.8-82.8); PLATELET COUNT 193 K/MM3 (134-434); RBC 4.68 M/mm3 (3.60-5.2); RDW 13.7 % (11.6-15.6); WHITE BLOOD COUNT 6.3 K/mm3 (4.0-10.0)
[2021-03-28] MEDS ORDERED: METOCLOPRAMIDE HCL INJECTION 10 MG/2 ML VIAL ONE (01:46)
[2021-03-28 01:47] LABS: CHLORIDE 107 mmol/L (98-107); SODIUM 141 mmol/L (136-145)
[2021-03-28 01:49] LABS: ALBUMIN 3.7 g/dl (3.4-5.0); ANION GAP 8 MMOL/L (8-16); BLOOD UREA NITROGEN 10.9 mg/dL (7-18); CALCIUM 9.3 mg/dL (8.5-10.1); CO2 27 mmol/L (21-32); GLUCOSE,RANDOM 100 mg/dL (74-106); LIPASE 50 U/L (73-393)
[2021-03-28 01:52] LABS: CREATININE 0.6 mg/dL (0.55-1.3); SGOT/AST 41 U/L (15-37); SGPT/ALT 65 U/L (13-61)
[2021-03-28 01:54] LABS: BILIRUBIN,TOTAL 0.6 mg/dL (0.2-1); TOT PROT 6.6 g/dl (6.4-8.2)
[2021-03-28 01:55] LABS: ALK PHOS 93 U/L (45-117)
== END 2021-03-28 04:08 | disposition home or self-care (01) ==
LOC: JER 23:25
DX: R11.0 Nausea (principal)
CPT/HCPCS: 36415; 71045-TC-FY; 80053; 82550; 83605; 83690; 84484; 85025; 93005; 93010; 99285-25

== ENCOUNTER 2022-01-21 13:25 | Observation (INO) | payer OTHER ==
[2022-01-21] MEDS ORDERED: SODIUM CHLORIDE 0.9% 500 ML INFUS.BAG IV ONE (14:19)
[2022-01-21] MEDS ORDERED: ACETAMINOPHEN 1000 MG/100 ML BAG IVPB ONE (14:19)
[2022-01-21] MEDS ORDERED: LIDOCAINE 5% TOPICAL PATCH TP ONE (14:30)
[2022-01-21] MEDS ORDERED: LIDOCAINE 5% TOPICAL PATCH ONE (15:19)
[2022-01-21] MEDS ORDERED: ACETAMINOPHEN INJECTION 100 ML IVPB ONE (15:19)
[2022-01-21 15:48] LABS: BASO % 0.6 % (0-2.0); HEMATOCRIT 42.3 % (32.4-45.2); HEMOGLOBIN 14.1 GM/dL (10.7-15.3); LYMPH % 36.2 % (8-40); MCHC 33.4 g/dl (32.0-36.0); MEAN CELL VOLUME 83.9 fl (80-96); MEAN PLT VOLUME 8.1 fl (7.5-11.1); MONO % 6.1 % (3.8-10.2); NEUT % 56.1 % (42.8-82.8); PLATELET COUNT 194 10^3/uL (134-434); RBC 5.04 M/mm3 (3.60-5.2); RDW 13.7 % (11.6-15.6); WHITE BLOOD COUNT 5.7 K/mm3 (4.0-10.0)
[2022-01-21 16:09] LABS: MAGNESIUM 2.2 mg/dL (1.8-2.4)
[2022-01-21 16:13] LABS: CREATININE 0.6 mg/dL (0.55-1.3)
[2022-01-21 16:14] LABS: BILIRUBIN,TOTAL 0.4 mg/dL (0.2-1); TOT PROT 6.9 g/dl (6.4-8.2)
[2022-01-21] MEDS ORDERED: clonazePAM 0.5 MG TABLET PO PRN (16:33)
[2022-01-21] MEDS ORDERED: METOCLOPRAMIDE HCL 10 MG TABLET (FP) PO PRN (16:33)
[2022-01-21] MEDS ORDERED: METOCLOPRAMIDE HCL 10 MG TABLET (FP) PO ONE (18:41)
[2022-01-21] MEDS ORDERED: HEPARIN NA (PORCINE) 5,000 UNITS/ML 1ML VIAL ONE (20:48)
[2022-01-21] MEDS: INSULIN SLIDING SCALE (NOVOLOG) 1 VIAL SQ SCH (21:10)
[2022-01-21] MEDS: HEPARIN NA (PORCINE) 5,000 UNITS/ML 1ML VIAL SQ SCH (21:10)
[2022-01-21] MEDS ORDERED: LIDOCAINE PATCH REMOVAL MC ONE (22:00)
[2022-01-21] MEDS: ROSUVASTATIN CA 20 MG TABLET PO SCH (22:27)
[2022-01-22 04:29] VITALS: BMI 25.6
[2022-01-22] MEDS: INSULIN SLIDING SCALE (NOVOLOG) 1 VIAL SQ SCH ×4 (07:28→21:26)
[2022-01-22 08:28] LABS: BASO % 0.3 % (0-2.0); EOS % 2.9 % (0-4.5); HEMATOCRIT 42.5 % (32.4-45.2); HEMOGLOBIN 14.1 GM/dL (10.7-15.3); LYMPH % 45.7 % (8-40); MCH 27.8 pg (25.7-33.7); MCHC 33.2 g/dl (32.0-36.0); MEAN CELL VOLUME 83.8 fl (80-96); MEAN PLT VOLUME 8.2 fl (7.5-11.1); MONO % 6.7 % (3.8-10.2); NEUT % 44.4 % (42.8-82.8); PLATELET COUNT 183 10^3/uL (134-434); RBC 5.08 M/mm3 (3.60-5.2); RDW 13.2 % (11.6-15.6)
[2022-01-22 09:05] LABS: ALBUMIN 3.5 g/dl (3.4-5.0); BLOOD UREA NITROGEN 12.2 mg/dL (7-18); CALCIUM 9.1 mg/dL (8.5-10.1)
[2022-01-22 09:08] LABS: CREATININE 0.6 mg/dL (0.55-1.3)
[2022-01-22 09:10] LABS: BILIRUBIN,TOTAL 0.5 mg/dL (0.2-1); TOT PROT 6.1 g/dl (6.4-8.2)
[2022-01-22] MEDS ORDERED: RAMIPRIL 5 MG CAPSULE PO SCH (10:00)
[2022-01-22] MEDS ORDERED: INSULIN (LEVEMIR) 100 UNITS/ML UNITS SQ SCH ×3 (10:00→17:54)
[2022-01-22] MEDS: HEPARIN NA (PORCINE) 5,000 UNITS/ML 1ML VIAL SQ SCH ×2 (10:52→21:26)
[2022-01-22] MEDS: EZETIMIBE 10 MG TABLET (FP) PO SCH (10:53)
[2022-01-22] MEDS: PANTOPRAZOLE 40 MG TABLET PO SCH (10:53)
[2022-01-22] MEDS: ASPIRIN 81 MG CHEWABLE TABLETS PO SCH (10:53)
[2022-01-22] MEDS: DULoxetine HCL 20 MG CAPSULE.DR PO SCH (10:54)
[2022-01-22] MEDS: RAMIPRIL 5 MG CAPSULE PO SCH (11:00)
[2022-01-22] MEDS: ACETAMINOPHEN 500 MG TABLET (FP) PO PRN (18:42)
[2022-01-22] MEDS: ROSUVASTATIN CA 20 MG TABLET PO SCH (21:26)
[2022-01-23] MEDS: ACETAMINOPHEN 500 MG TABLET (FP) PO PRN (04:39)
[2022-01-23] MEDS: INSULIN SLIDING SCALE (NOVOLOG) 1 VIAL SQ SCH ×2 (05:59→12:16)
[2022-01-23 09:13] VITALS: BP 147/69; PULSE 68; TEMP 98.8
[2022-01-23] MEDS: DULoxetine HCL 20 MG CAPSULE.DR PO SCH (09:36)
[2022-01-23] MEDS: ASPIRIN 81 MG CHEWABLE TABLETS PO SCH (09:36)
[2022-01-23] MEDS: RAMIPRIL 5 MG CAPSULE PO SCH (09:36)
[2022-01-23] MEDS: HEPARIN NA (PORCINE) 5,000 UNITS/ML 1ML VIAL SQ SCH (09:36)
[2022-01-23] MEDS: PANTOPRAZOLE 40 MG TABLET PO SCH (09:38)
[2022-01-23] MEDS: EZETIMIBE 10 MG TABLET (FP) PO SCH (09:38)
== END 2022-01-23 14:17 | disposition home or self-care (01) ==
LOC: JER 13:25 → JERBED 14:53 → J4W 01-22 02:12
PROVIDERS: ADMIT Family Medicine; ATTEND Family Medicine
PROC: 3E033NZ Introduction of Analgesics, Hypnotics, Sedatives into Peripheral Vein, Percutaneous Approach (ICD-10-PCS; principal; 2022-01-21)
PROC: 3E013VG Introduction of Insulin into Subcutaneous Tissue, Percutaneous Approach (ICD-10-PCS; 2022-01-21)
PROC: 3E0337Z Introduction of Electrolytic and Water Balance Substance into Peripheral Vein, Percutaneous Approach (ICD-10-PCS; 2022-01-21)
DX: I25.10 Atherosclerotic heart disease of native coronary artery without angina pectoris (principal); E78.5 Hyperlipidemia, unspecified; I11.9 Hypertensive heart disease without heart failure; M54.30 Sciatica, unspecified side; M50.20 Other cervical disc displacement, unspecified cervical region; J98.11 Atelectasis; M79.7 Fibromyalgia; Z86.16 Personal history of COVID-19; F41.9 Anxiety disorder, unspecified; Z87.891 Personal history of nicotine dependence; E11.9 Type 2 diabetes mellitus without complications; R07.9 Chest pain, unspecified; Z88.8 Allergy status to other drugs, medicaments and biological substances; Z91.018 Allergy to other foods; J44.9 Chronic obstructive pulmonary disease, unspecified; Z86.73 Personal history of transient ischemic attack (TIA), and cerebral infarction without residual deficits; Z85.118 Personal history of other malignant neoplasm of bronchus and lung
CPT/HCPCS: 36415; 71045-TC-FY; 72125-TC; 80053; 80061; 82553; 82962; 83036; 83735; 84443; 84484; 85025; 93005; 93010; 96372; 96374; 99285-25; C9803; G0378; J1644; U0003; U0005

== ENCOUNTER 2022-12-05 09:37 | Emergency (ER) | payer OTHER ==
[2022-12-05 10:10] VITALS: BP 124/62; PULSE 80; RESP 12; TEMP 98.7; BMI 24.1
== END 2022-12-05 12:11 | disposition home or self-care (01) ==
LOC: JERFT 09:37
DX: L03.011 Cellulitis of right finger (principal)
CPT/HCPCS: 99283-25

== ENCOUNTER 2025-06-12 14:20 | Observation (INO) | payer OTHER ==
[2025-06-12 15:50] LABS: ABSOLUTE IMMATURE GRANULOCYTES 0.01 x10^3/uL (0.0-0.031); BASOPHILS # 0.01 x10^3/uL (0.01-0.08); EOSINOPHIL % 1.4 % (0.7-5.8); EOSINOPHILS # 0.08 x10^3/uL (0.04-0.36); MCHC 32.8 g/dl (32.2-35.5); MEAN CELL VOLUME 84.1 fl (79.4-94.8); MEAN PLT VOLUME 10.1 fl (9.4-12.3); MONOCYTE # 0.49 x10^3/uL (0.24-0.86); MONOCYTE % 8.8 % (4.7-12.5); RDW 12.4 % (12.4-16.4)
[2025-06-12 15:58] LABS: INR 0.94 (0.83-1.09); PROTHROMBIN TIME (PATIENT) 10.3 SEC (9.7-13.0)
[2025-06-12 16:00] LABS: ACTIVATED PTT 29.4 SECONDS (25.2-36.5)
[2025-06-12 16:05] LABS: CO2 28.0 mmol/L (21-32); GLUCOSE,RANDOM 129.0 mg/dL (74-106)
[2025-06-12 16:08] LABS: CREATININE 0.6 mg/dL (0.55-1.3); SGPT/ALT 32.0 U/L (13-61)
[2025-06-12 16:09] LABS: SGOT/AST 13.0 U/L (15-37)
[2025-06-12 16:10] LABS: TOT PROT 6.4 g/dl (6.4-8.2)
[2025-06-12 16:11] LABS: ALK PHOS 83.0 U/L (45-117)
[2025-06-12 17:12] LABS: HCV DIAGNOSTIC IN-HOUSE W/RFLX NON-REACTIVE (NONREACTIVE)
[2025-06-12 17:14] LABS: HIV INTERPRETATION NEGATIVE (NEGATIVE)
[2025-06-12] MEDS ORDERED: ACETAMINOPHEN 500 MG TABLET (FP) PO PRN (19:57)
[2025-06-12] MEDS: INSULIN ASPART SLIDING SCALE (NOVOLOG) 1 VIAL SQ SCH (23:13)
[2025-06-12] MEDS: DOCUSATE SODIUM 100 MG CAPSULE (FP) PO PRN (23:17)
[2025-06-13 09:23] LABS: ABSOLUTE IMMATURE GRANULOCYTES 0.01 x10^3/uL (0.0-0.031); BASOPHILS # 0.01 x10^3/uL (0.01-0.08); EOSINOPHIL % 1.6 % (0.7-5.8); EOSINOPHILS # 0.08 x10^3/uL (0.04-0.36); MCHC 32.6 g/dl (32.2-35.5); MEAN CELL VOLUME 84.8 fl (79.4-94.8); MEAN PLT VOLUME 10.1 fl (9.4-12.3); MONOCYTE # 0.36 x10^3/uL (0.24-0.86); MONOCYTE % 7.2 % (4.7-12.5); RDW 12.5 % (12.4-16.4)
[2025-06-13 10:27] LABS: CO2 29.0 mmol/L (21-32)
[2025-06-13 10:28] LABS: GLUCOSE,RANDOM 130.0 mg/dL (74-106); LDL CHOLESTEROL (ONLY SJRH) 64 mg/dL (5-100)
[2025-06-13 10:31] LABS: CREATININE 0.6 mg/dL (0.55-1.3)
[2025-06-13] MEDS: PANTOPRAZOLE 40 MG TABLET PO SCH (10:31)
[2025-06-13] MEDS: LOSARTAN POTASSIUM 50 MG TABLET PO SCH (10:31)
[2025-06-13 15:18] VITALS: BMI 24.9
[2025-06-13] MEDS: ALBUTEROL SO4 2.5/IPRATROPIUM 0.5 INH SOL 3 ML VIAL.NEB. NEB SCH (20:44)
[2025-06-13] MEDS: EZETIMIBE 10 MG TABLET (FP) PO SCH (22:13)
[2025-06-14] MEDS: INSULIN GLARGINE (LANTUS) 100 UNITS/ML UNITS SQ SCH (07:01)
[2025-06-14] MEDS ORDERED: ALBUTEROL SO4 2.5/IPRATROPIUM 0.5 INH SOL 3 ML VIAL.NEB. NEB PRN (07:31)
[2025-06-14] MEDS: ASPIRIN 81 MG CHEWABLE TABLETS PO SCH (09:48)
[2025-06-14] MEDS: predniSONE 20 MG TABLET (UD) PO SCH (12:32)
[2025-06-14 13:16] VITALS: TEMP 97.5
[2025-06-14 14:41] VITALS: BP 134/67; PULSE 65; RESP 20
[2025-06-14] MEDS ORDERED: ATORVASTATIN CA 10 MG TABLET (FP) PO SCH (22:00)
== END 2025-06-14 16:00 | disposition home or self-care (01) ==
LOC: JER 14:20 → JERBED 18:05 → J6W TELE 21:30
PROVIDERS: ADMIT Family Medicine; ATTEND Family Medicine
PROC: 3E0F7GC Introduction of Other Therapeutic Substance into Respiratory Tract, Via Natural or Artificial Opening (ICD-10-PCS; principal; 2025-06-12)
PROC: 3E013VG Introduction of Insulin into Subcutaneous Tissue, Percutaneous Approach (ICD-10-PCS; 2025-06-12)
DX: C34.90 Malignant neoplasm of unspecified part of unspecified bronchus or lung (principal); J44.9 Chronic obstructive pulmonary disease, unspecified; I25.10 Atherosclerotic heart disease of native coronary artery without angina pectoris; E11.9 Type 2 diabetes mellitus without complications; I10 Essential (primary) hypertension; E78.5 Hyperlipidemia, unspecified; Z88.8 Allergy status to other drugs, medicaments and biological substances; Z88.5 Allergy status to narcotic agent
CPT/HCPCS: 36415; 71045-TC-FY; 71250-TC; 80048; 80053; 80061; 82378; 82962; 83036; 83735; 84100; 84439; 84443; 84484; 85025; 85379; 85610; 85730; 86803; 86850; 86900; 86901; 87389; 93005; 93010; 93306-TC; 93351; 94640; 96372; 99285-25; G0378